=== PATIENT | female | born 1980 | race African-American/Black ===

== ENCOUNTER 2019-04-20 12:37 | Outpatient (CLI) | payer OTHER, MEDICAID, SELFPAY ==
--- NOTE | 2019-04-21 17:09 | WPDPFTINT ---
PFT Interpretation PFT Interpretation: DOS: 04/20/2019 REQUESTING: Shiraz Caro NP REASON FOR TESTING: Shortness of breath PULMONARY FUNCTION TESTS Spirometry: FEV1 84%, normal. FVC normal. FEV1% is normal. Mild decrease in PXJ45-76%, 62% predicted, increased by 19% after bronchodilator. Lung volumes: Total lung capacity 103%, normal. RV/TLC ratio is increased consistent with air trapping. Normal airway resistance. Diffusion: DLCO 55%, moderately decreased. Flow volume loop: Normal. IMPRESSION: Mild air trapping, small airways pattern with fair response to bronchodilator; moderate diffusion impairment. The diffusion impairment is the most significant finding. Clinical correlation is recommended. Fe Ochoa MD
== END 2019-04-20 12:38 | disposition home or self-care (01) ==
PROVIDERS: Visit Provider Nurse Practitioner Family
DX: R06.00 Dyspnea, unspecified (principal); R94.2 Abnormal results of pulmonary function studies
CPT/HCPCS: 94060; 94726; 94729

== ENCOUNTER 2019-07-04 08:50 | Outpatient (CLI) | payer OTHER, SELFPAY ==
--- NOTE | ~2019-07-04 | CT_ITS ---
EXAMINATION:CT chest high resolution [facility] DATE: 07/04/2019 09:40 INDICATION: Abnormal chest radiographs. Cough. TECHNIQUE: Computed tomography (CT) of the chest was performed without intravenous contrast. Automate d exposure control and iterative reconstruction technique were employed. The dose-length product (DLP ) was 422.23 mGy-cm. COMPARISON: Chest CT 03/17/2019, chest single view 03/13/2019 FINDINGS: The lung volumes are normal. There are patchy groundglass opacities throughout the lungs bi laterally. There is a widespread distribution of septal thickening in the lungs, but this feature is milder than the groundglass opacities. No bronchiectasis or honeycombing. No pleural effusion. The he art size is normal. No pericardial effusion. There are surgical changes of the stomach. There is tao re thoracic spondylosis. IMPRESSION: 1. Diffuse lung disease, unchanged from 03/17/2019. The differential diagnosis includes chronic hypers ensitivity pneumonitis, chronic eosinophilic pneumonia, nonspecific interstitial pneumonitis (NSIP), pulmonary alveolar proteinosis, and smoking-related interstitial lung disease. Reviewed, dictated and finalized at location A. IMPRESSION: 1. Diffuse lung disease, unchanged from 03/17/2019. The differential diagnosis i ncludes chronic hypersensitivity pneumonitis, chronic eosinophilic pneumonia, n onspecific interstitial pneumonitis (NSIP), pulmonary alveolar proteinosis, and smoking-related interstitial lung disease.
== END 2019-07-04 08:51 | disposition home or self-care (01) ==
LOC: ANHIMG 08:54
PROVIDERS: PCP Physician Assistant; Visit Provider Nurse Practitioner Family
DX: R93.89 Abnormal findings on diagnostic imaging of other specified body structures (principal); J84.9 Interstitial pulmonary disease, unspecified
CPT/HCPCS: 71250

== ENCOUNTER 2019-08-14 00:07 | Outpatient (CLI) | payer OTHER, SELFPAY ==
[2019-08-14 15:58] LABS: SARS-CoV-2 RNA PCR Negative
== END 2019-08-14 00:08 | disposition home or self-care (01) ==
LOC: ANHCOVIDDT 00:08
PROVIDERS: Anesthesiology; Visit Provider Surgery
DX: Z01.818 Encounter for other preprocedural examination (principal); Z11.59 Encounter for screening for other viral diseases
CPT/HCPCS: 87635; C9803; U0003

== ENCOUNTER 2019-08-14 08:36 | Outpatient (CLI) | payer OTHER, SELFPAY ==
[2019-08-14 09:31] LABS: Hematocrit 32.5 % (37.0-47.0); Hemoglobin 10.6 g/dL (12.0-15.0)
[2019-08-14 09:45] LABS: Alanine Aminotransferase 30 U/L (4-35); Alkaline Phosphatase 86 U/L (38-126); Amylase 102 U/L (30-110); Aspartate Amino Transferase 40 U/L (14-36); Bilirubin,Total 0.4 mg/dL (0.2-1.3); Blood Urea Nitrogen 9 mg/dL (7-17); Carbon Dioxide 25 mmol/L (22-30); Chloride 106 mmol/L (98-107); Estimated Glomerular Filt Rate > 60; Glucose 94 mg/dL (65-105); Lipase 85 U/L (23-300); Potassium 3.9 mmol/L (3.4-5.0); Sodium 137 mmol/L (137-145)
== END 2019-08-14 08:37 | disposition home or self-care (01) ==
LOC: ANHSURGERY 08:41
PROVIDERS: Anesthesiology; PCP Physician Assistant; Visit Provider Surgery
DX: Z01.818 Encounter for other preprocedural examination (principal); K81.9 Cholecystitis, unspecified
CPT/HCPCS: 36415; 80053; 82150; 82248; 83690; 85014; 85018

== ENCOUNTER 2019-08-16 00:59 | Day surgery (SDC) | payer OTHER, SELFPAY ==
[2019-08-02 17:14] VITALS: BMI 37.6
[2019-08-16] VITALS (9 sets, daily range): BP systolic 113–147; BP diastolic 54–84; PULSE 53–75; RESP 17–20; TEMP 36.2–36.4; O2SAT 100
--- NOTE | 2019-08-16 10:50 | PM.HPGS ---
History of Present Illness History of Present Illness Consent: Risks, benefits, and alternatives of a laparoscopic cholecystectomy, possible intraoperative cholangiogram, possible open cholecystectomy have been discussed and questions answered. Patient agrees to proceed with procedure. Chief complaint: Chronic Cholecystitis with Cholelithiasis Narrative: Marcia Brody is a 38 year old Black female who presented with RUQ pain. She was admitted to for RUQ pain, nausea, vomiting and shortness of breath. She is on a low fat diet. She does report that some fruits are causing her some acid reflux. She is still having on and off RUQ pain. An ultrasound of the right upper quadrant was performed on 03-14-19 which showed cholelithiasis and positive Ibanez sign without pericholecystic fluid or gallbladder wall thickening. A CT scan of the abdomen and pelvis with contrast performed on 03-13-19 showed a moderate amount of bibasilar groundglass airspace disease, acute versus chronic, and cholelithiasis. She is anemic and is follow with Dr. Richardson for this. Most recent hemoglobin prior to this admission for surgery is 10.5. She is has also see a digital marketing apprentice for the abnormal chest CT scan. She is had a follow up CT on June 19 with a follow up in July 2019. At the time of her follow-up her nebulizer and inhalers were not changed and she was approved to proceed to surgery by the digital marketing apprentice and Pulmonary Service. She reports her shortness or breath and cough have improved significantly since March. She has a history of gastric sleeve surgery and then subsequent conversion to a Sundeep-en-Y gastric bypass [place]. She reports she is losing about 2-5 lbs. Her starting weight was 298 lbs. Review of Systems Constitutional: Constitutional: Reports no additional constitutional complaints, Reports fatigue and Denies malaise Eyes: Eyes: Denies change in vision and Denies loss of vision ENT: Reports Normal hearing present, Denies change in voice, Denies dizziness, Denies hoarseness and Denies sore throat Cardiovascular: Cardiovascular: Denies chest pain, Denies leg edema and Denies dyspnea Respiratory: Respiratory: Reports as per HPI, Denies cough, Denies dyspnea and Denies wheezing Comments: Patient has had pulmonary consultation and has been approved proceed to general anesthesia. She still has a mild cough but this is felt to be chronic. Gastrointestinal: Gastrointestinal: Reports abdominal pain (Periodic in the right upper quadrant), Denies hematochezia, Denies change in bowel habits and Denies heartburn Comments: Obesity, status post Sundeep-en-Y gastric bypass. Losing some weight slowly. Genitourinary: Genitourinary: Denies urinary frequency and Denies urinary incontinence Neurologic: Reports Normal hearing present, Denies confusion, Denies dizziness, Denies loss of vision, Denies memory loss and Denies seizure-like activity Psychiatric: Psychiatric: Denies confusion, Denies depression and Denies memory loss Endocrine: Endocrine: Denies cold intolerance and Reports fatigue Hematologic/Lymphatic: Hematologic/Lymphatic: Denies easy bleeding and Denies easy bruising Allergic/Immunologic: Allergic/Immunologic: Denies wheezing PMFSH Social History Social History Smoking status: Never smoker Alcohol intake: current Drinks per week: 1 Spiritual care concerns: No Agree to blood products: No Meds Home Medications and Allergies Home Medications Medication Instructions Recorded Confirmed Type amlodipine [Norvasc] 5 mg PO QAM #30 tablet 03/17/19 08/16/19 Rx cyanocobalamin (vitamin B-12) 1,000 mcg PO DAILY #30 tablet 03/17/19 08/16/19 Rx albuterol sulfate 90 mcg/actuation 2 inhalation INHALATION Q4-6H PRN 03/24/19 08/02/19 Rx aerosol inhaler #8.5 gm ferrous sulfate 325 mg PO BID 08/02/19 08/16/19 History lisinopril-hydrochlorothiazide 1 tablet PO DAILY 08/02/19 08/16/19 History m
[2019-08-16] MEDS: LACTATED RINGERS 1,000 ML 30 ML IV CONT ×2 (11:08→14:14)
--- NOTE | 2019-08-16 11:15 | P.PNAN_ITS ---
Anes - Initial Pre Proc Eval Procedure: Operation Date: 08/16/19 12:00 Proposed Procedures p Laparoscopic Cholecystectomy, Possible Intra-Operative Cholangiogram, Possible Open - Carl Grewal MD Date/Time: 08/16/19 11:15 Surgeon: Carl Grewal MD Pre Op Diagnosis: Chronic Cholecystitis with Cholelithiasis Patient Data Age: 38 Gender: F Height: 5 ft 5 in Weight: 106.2 kg Last Vital Signs Temp 97.2 F L 08/16/19 10:52 Pulse 53 L 08/16/19 10:52 Resp 20 08/16/19 10:52 BP 113/54 L 08/16/19 10:52 Pulse Ox 100 08/16/19 10:52 Allergies Allergy/AdvReac Type Severity Reaction Status Date / Time No Known Allergies Allergy Verified 08/16/19 10:43 Home Medications Medication Instructions Recorded Confirmed Type amlodipine [Norvasc] 5 mg PO QAM #30 tablet 03/17/19 08/16/19 Rx cyanocobalamin (vitamin B-12) 1,000 mcg PO DAILY #30 tablet 03/17/19 08/16/19 Rx albuterol sulfate 90 mcg/actuation 2 inhalation INHALATION Q4-6H PRN 03/24/19 08/02/19 Rx aerosol inhaler #8.5 gm ferrous sulfate 325 mg PO BID 08/02/19 08/16/19 History lisinopril-hydrochlorothiazide 1 tablet PO DAILY 08/02/19 08/16/19 History multivitamin with minerals 1 tablet PO DAILY 08/02/19 08/16/19 History [Hair,Skin and Nails] [id number]-FA-vit K 1 tablet PO DAILY 08/02/19 08/16/19 History [Adults Multivitamin] byimqa87-thxz fum-folic ac-om3 1 pkg PO DAILY 08/02/19 08/16/19 History [Daily ] Patient hx anesthesia problems: none Family hx anesthesia problems: none PMFSH Social History Social History Smoking status: Never smoker Alcohol intake: current Drinks per week: 1 Spiritual care concerns: No Agree to blood products: No Anes - Eval Final PreProcedure Day of Procedure 08/16/19 11:15 Patient weight: morbidly obese Heart: regular rate and rhythm Lungs: clear to auscultation Airway: Mallampati scale class II Neurological: alert and oriented Last oral intake: >/= 8 hours ASA classification: III Emergent: no Anesthetic plan: proceed Anesthesia type and monitoring: general ETT and standard monitoring Informed Consent: The patient's anesthetic plan and its attendant risks and benefits were discussed with the patient/family/POA. Questions were solicited and answers provided to the satisfaction of the patient/family/POA.
[2019-08-16] MEDS: ceFAZolin 2 GM/D5W 50 ML 2 GM/50 ML BAG IVPB (12:34)
[2019-08-16] MEDS: BUPIVACAINE/EPINEPHRINE 0.5% 30 ML VIAL INFILTRATE (13:22)
--- NOTE | 2019-08-16 14:29 | PM.PROC ---
Procedure Note - Detailed Date of procedure: 08/18/19 Pre-op diagnosis: Chronic Cholecystitis with Cholelithiasis Post-op diagnosis: same Procedure performed: Laparoscopic cholecystectomy. Description of procedure: Procedure Details: Patient was seen preoperatively in the holding area and risks, benefits and alternatives confirmed. Patient was taken to the operating room and general anesthesia was induced. A time out was then preformed with the surgery team confirming patient and site of surgery. The abdomen was prepped and draped in the usual sterile fashion. Incision was made just below the umbilicus. Two stay sutures of O- Vicryl were used to elevate the mid-line fascia beneath the umbilicus and a small incision was made under direct vision. The peritoneum was entered. The 12 mm [place]ail cannula was introduced under direct vision. First under low flow and then under high flow the abdomen was insufflated with carbon dioxide never exceeding a pressure of 14. Three 5 mm trocars were then introduced under direct vision. The following trocars were introduced under direct vision: a mm in the epigastrium and two 5 mm trocars along the right costal margin. Careful dissection of the triangle of Calot yielded a good window of safety so cholangiogram was not completed. The gall bladder was grasped and the cystic duct and artery were dissected free and clipped with an 5 mm endo-clip drivers license examiner. Then the cystic duct was clipped with a 5 mm endoclip-drivers license examiner. The cystic duct was then transected. The cystic artery was also transected at this point. The gall bladder was removed using electrocautery and then removed using a large 10 mm grasper via the umbilical incision. Careful palpation of the gallbladder after removal revealed very small stones probably 3 or 4. The trocars were removed visualizing hemostasis and the remaining gas evacuated. The large trocar site at the umbilicus was closed with an 0 vicryl figure of 8 suture. The 2 stay sutures mentioned above on either side of the fascia were also tied together to help approximate this midline fascia. Further local anesthetic was placed into each incision for postop pain control. The skin incisions were closed with a subcuticular of 4-0 Monocryl. Surgical glue then was applied to all the incisions. Patient tolerated the procedure well was taken to the recovery room in good condition. Anesthesia: GETA Surgeon: Carl Grewal MD Char Conveyor Tender Cellar: Josué FARLEY OR 1st assist Estimated blood loss (mL): 15 Drains: No Packing: No Pathology: yes (The gallbladder) Complications: No immediate complications Condition: stable Disposition: PACU Findings: gallbladder was huge. At least 15 cm long and extending at least 5 cm beyond its attachments to the liver on its backside. Careful palpation after removal did reveal a few small stones palpable in the gallbladder.
== END 2019-08-16 16:38 | disposition home or self-care (01) ==
PROVIDERS: PCP Physician Assistant; Visit Provider Surgery
PROC: 0FT44ZZ Resection of Gallbladder, Percutaneous Endoscopic Approach (ICD-10-PCS; CPT 47562; principal; 2019-08-16 12:00)
DX: K80.10 Calculus of gallbladder with chronic cholecystitis without obstruction (principal); I10 Essential (primary) hypertension; E11.9 Type 2 diabetes mellitus without complications; J84.9 Interstitial pulmonary disease, unspecified; E66.01 Morbid (severe) obesity due to excess calories; Z68.38 Body mass index [BMI] 38.0-38.9, adult; Z98.84 Bariatric surgery status
CPT/HCPCS: 47562; 36415; 80053; 82150; 82248; 83690; 85014; 85018; 87635; 88304; A9270; C9803; J0131; J0330; J0690; J1100; J1170; J2250; J2405; J2704; J2710; J3010; J7030; J7120; Q9966; U0003

== ENCOUNTER 2020-01-12 10:03 | Outpatient (CLI) | payer OTHER, SELFPAY ==
--- NOTE | ~2020-01-12 | US_ITS ---
EXAMINATION: US OB <= 14 weeks fetus DATE: 01/12/2020 10:47 INDICATION: First trimester dating TECHNIQUE: Real-time pelvic transabdominal and transvaginal ultrasound was performed. COMPARISON: None. FINDINGS: The uterus measures 10.0 x 4.8 x 5.4 cm. There is an intrauterine gestational sac. There i s a 2.5 x 1.6 x 1.0 cm hypoechoic area adjacent to the gestational sac. A yolk sac is identified. Fet al heart motion is identified measuring 105 beats per minute (bpm) by M-mode Doppler. The crown rump length measures 2.1 cm , which correlates with an estimated gestational age of 8 weeks and 5 da y(s) (+/-) 5 day(s). The ovaries are not visualized however no adnexal abnormality is seen. There is no free fluid in the pelvis. IMPRESSION: 1. Live intrauterine with an estimated gestational age of 8 weeks and 5 day(s) (+/-) 5 day( s) and an estimated delivery date of 08/18/2020. Reviewed, dictated and finalized at location A. AL MAKER IMPRESSION: 1. Live intrauterine with an estimated gestational age of 8 weeks and 5 day(s) (+/-) 5 day(s) and an estimated delivery date of 08/18/2020.
== END 2020-01-12 10:04 | disposition home or self-care (01) ==
PROVIDERS: PCP Physician Assistant; Referring Provider Obstetrics & Gynecology; Visit Provider Nurse Practitioner
DX: Z36.87 Encounter for antenatal screening for uncertain dates (principal); Z3A.08 8 weeks gestation of pregnancy
CPT/HCPCS: 76801

== ENCOUNTER 2020-01-13 09:16 | Outpatient (CLI) | payer OTHER, SELFPAY ==
[2020-01-13 10:04] LABS: Glucose Fasting 90 mg/dL
[2020-01-13 11:16] LABS: Glucose 1 Hour 202 mg/dL
[2020-01-13 12:12] LABS: Glucose 2 Hour 79 mg/dL
== END 2020-01-13 09:17 | disposition home or self-care (01) ==
PROVIDERS: PCP Physician Assistant; Visit Provider Nurse Practitioner
DX: E11.9 Type 2 diabetes mellitus without complications (principal)
CPT/HCPCS: 36415; 82951; 84144

== ENCOUNTER 2020-02-06 19:04 | Inpatient (IN) | payer OTHER, SELFPAY ==
--- OUTSIDE RECORDS SUMMARY | 2020-02-06 19:40 | XMS_ITS ---
:1980 Author Care Team Providers Name Role Phone ALETHA DAWSON MD Sap Bw Architect [phone] MIKALA LAL Primary Care Provider [phone] Allergies Code Code System Name Reaction Severity Status Onset NKDA ? Medications Name Status Start Date Stop Date ? ? acyclovir 800 mg tablet Completed ? 07/15/19 17 Take 1 tablet every day by oral route. amlodipine Completed ? 01/09/2020 amlodipine 5 mg tablet Completed ? 0 aspirin 81 mg tablet,delayed release Active ? Not available TAKE 1 TABLET BY MOUTH TWICE A DAY azithromycin 250 mg tablet Completed ? 12/03 B12 Active 1,000 mcg chewable tablet Completed ? 01/09/2020 Take one tablet by mouth once daily benzonatate 200 mg capsule Completed ? 12/03 bupropion HCl SR 150 mg tablet,12 hr sustained-release Completed ? 03/23/2019 Take 1 tablet twice a day by oral route. Calcium 600 with Vitamin D3 600 mg (1,500 mg)-400 unit capsule A ctive ? Not available Take 1 capsule twice a day by oral route. calcium carbonate-vitamin D3 600 mg (1,500 mg)-800 unit tablet C ompleted ? 08/02/2018 Take 1 tablet twice a day by oral route. Calcium with Vitamin D 600 mg (1,500 mg)-400 unit tablet Complet ed ? 01/09/2020 Take 1 tablet twice a day by oral route. Caltrate 600 plus D 600 mg (1,500 mg)-800 unit chewable tablet Completed ? 07/14/2016 Take 1 tablet twice a day by oral route. cefdinir 300 mg capsule Completed ? 12/04/19 20 cetirizine 10 mg tablet Active ? Not avai labl
--- OUTSIDE RECORDS SUMMARY | 2020-02-06 19:41 | XMS_ITS | Encounter Summary ---
:1980 Author Care Team Providers Name Role Phone Latosha LAL Primary Care Provider [phone] Zhen Paiz MD Head Of Ethics And Compliance [phone] Reason for Visit Phone Visit patient would like a Nebulizor for home Assessment and Plan Assessment Note PATRIZIA Martinez, PA-S 1. Interstitial lung disease Ground glass opacities noted o n CT scan in ED Mar 2019. PFT with FEV1 91%, diffusing capacity 55%. She saw a thorac ic surgeon on 07/13/2019 and was Dx with possible hypersensitivity pneumonitis (? mold). They would like to get a lung biopsy for a definitive Dx but due to COVID zoya t has been placed on hold. She has appt with IR in March. Continue following up [facility] specialists for further workup and management. 2. Chronic cough Chronic cough for years, work up still ongoing. Supervisor Dyer prescribed singular, nasal saline, and astelin. She has not been using these medications but has been using albuterol inhaler (per ED) mu ltiple times per day with little relief. Advised that nebulizer unlikely to be he lpful as no diagnosis of obstructive airway disease. Advised to continue with nasal sprays, Singular and Zyrtec daily. Further eval and management per pulm recs. ? montelukast 10 mg tablet ? Zyrtec 10 mg tablet 3. Candidiasis of vagina Pt requests Diflucan for clare diasis. She states Dr. Paiz just prescribed her 1 pill but she usually ne eds two to clear infection. ? Diflucan 100 mg tablet ? vaginal yeast infection: c are instructions Discussion Note: None recorded. Plan of Care R
--- OUTSIDE RECORDS SUMMARY | 2020-02-06 19:41 | XMS_ITS | Encounter Summary ---
:1980 Author Care Team Providers Name Role Phone Latosha LAL Primary Care Provider [phone] Zhen Paiz MD Oxidation Operator [phone] Reason for Visit ob routine visit ACOG Assessment and Plan Assessment Note PATRIZIA Conner PA-S 1. Routine care 39 y/o F with PMH of o besity, DM, HTN, ILD, iron-deficiency anemia, sickle-cell trait, history of bariatric surgery, miscarriage, +GBS, + Grant antibody presents at 10w3d for ACOG. Test results reviewed. OB educational packet reviewed and provided to pt. US 01/12/2020 with [facility] ? OB education, second visit 2. Advanced maternal age Referral to MFM placed, appt u pcoming. Pt getting NIPT drawn next week. 3. Grant antibodies present Not a cause of HDN, [facility] referr al for input. 4. Administration of influenza v accine ? Fluzone Quad [id number] (PF ) 60 mcg (15 mcg x 4)/0.5 mL IM syringe Discussion Note: None recorded. Plan of Care Reminders Provider Appointments Ob 15 03/05/2020 Zhen chinchilla, 11:30AM ? Any 15 on or around Latosha Herrera 04/20/2020 [facility] None ? ? recorded. Referral None ? ? recorded. Procedures None ? ?
--- OUTSIDE RECORDS SUMMARY | 2020-02-06 19:41 | XMS_ITS | Encounter Summary ---
:1980 Author Care Team Providers Name Role Phone Latosha LAL Primary Care Provider [phone] Zhen Paiz MD Lan Engineer [phone] Reason for Visit ob initial exam Had Depo eliana on Dec 13 here at our offi ce Assessment and Plan 1. Routine care ? culture, urine - Please fa x results to [phone]. ? HCG, intact + beta subunit , quant, serum or plasma - Please fax results to [facility] [phone] ? progesterone, serum - Plea se fax [facility] [phone] ? rubella IgG Ab, quant immu noassay, serum or plasma - Please fax results to [facility] [phone] ? pap, IG + HPV, cervical - Please also use Code Z11.51 for HPV screening off of the pap ? Vitamin tablet ? type + screen, serum - Ple ase fax results to [facility] [phone] ? unlisted lab - toxassure s elect 13 (mw) ? US, obstetric, 1st trimest er - Z34.9, Z36, Z34 ? TSH, 2nd Generation, QN, s braden or plasma - [id number] PLEASE FAX RESULTS TO [facility] AT [phone] ? Calcium 600 with Vitamin D 3 600 mg (1,500 mg)-400 unit capsule ? varicella zoster virus IgG Ab, QN, IA, serum - PLEASE FAX RESULTS TO [facility] AT [phone] ? CBC - PLEASE FAX RESULTS T O [facility] [phone] ? HbA1c (hemoglobin A1c), bl ood - PLEASE FAX RESULTS TO [facility] AT [phone]
--- OUTSIDE RECORDS SUMMARY | 2020-02-06 19:41 | XMS_ITS | Encounter Summary ---
:1980 Author Care Team Providers Name Role Phone Latosha LAL Primary Care Provider [phone] Zhen Paiz MD Dope Weigh Operator [phone] Reason for Visit ob routine visit patient has had some spotting today Assessment and Plan 1. Routine care ? urinalysis, dipstick 2. Advanced maternal age has appointment with Javier HENRY t omorrow (02/07/20) with US for viability ? advanced maternal age: car e instructions 3. Diabetes mellitus Will be addressed with weight loss surgery 4. History of bariatric surgical procedure 5. History of miscarriage 6. Grant antibodies present 7. Abnormal progesterone 8. Sickle cell trait ? sickle cell disease: care instructions Discussion Note: None recorded. Plan of Care Reminders Provider Appointments Ob 15 03/05/2020 Zhen chinchilla, 11:30AM ? Any 15 on or around Latosha Herrera 04/20/2020 [facility] Urinalysis, 02/06/2020 In-Of fice Order Dipstick Referral None ? ? recorded. Procedures None ? ? recorded. Surgeries None ? ? recorded. Imaging None ?
--- OUTSIDE RECORDS SUMMARY | 2020-02-06 19:41 | XMS_ITS | Encounter Summary ---
:1980 Author Care Team Providers Name Role Phone Latosha LAL Primary Care Provider [phone] Zhen Paiz MD Gear Finisher [phone] Reason for Visit Depo Provera Visit Injection Consent Signed, cb-rma Assessment and Plan 1. Depot contraceptive-no proble m ? test, urine ? medroxyprogesterone 150 mg /mL intramuscular suspension Discussion Note: None recorded.Patient educational handouts: No information available. Plan of Care Reminders Provider Appointments Ob 15 03/05/2020 Zhen chinchilla, 11:30AM ? Any 15 on or around Latosha M 04/20/2020 [facility] 12/05/2019 In-Offi ce Order Test, Urine Referral None ? ? recorded. Procedures None ? ? recorded. Surgeries None ? ? recorded. Imaging None ? ? recorded. Medications Name Start Date ? ? aspirin 81 mg tablet,delayed release ? TAKE 1 TABLET BY MOUTH TWICE A DAY Calcium 600 with Vitamin D3 600 mg (1,500 mg)-400 unit capsule ? Take 1 capsule twice a day by oral route. cetirizine 10 mg tablet ? ferrous sulfate 325 mg (65 mg iron) tablet ? folic acid 1 mg tablet ? Take 2 tablets twice a day by oral route as directed.
--- NOTE | 2020-02-06 20:22 | PM.IMHP ---
H&P: HPI History of Present Illness Date/Time: 02/06/20 20:22 Chief complaint: bleeding/abd pain Narrative: Marcia Brody is a 39 year old female 0 now 2 0 female presents with uterine contractions bleeding and passes a 9-10 week fetus. She was seen in the office today with no heart tones noted an ultrasound scheduled for tomorrow. Has had no bleeding or cramping until she presented tonight. Does have a history of prior miscarriage early which did require a D&C. Review of Systems Review of Systems: All systems reviewed & are unremarkable except as noted in HPI and below PMFSH Past Medical History Medical History (Updated 02/06/20 @ 20:28 by Bay Muniz MD) Anemia Chronic cough (~03/08/00) Diabetes HTN (hypertension) Migraines Surgical History Surgical History Hx laparoscopic cholecystectomy Hx of gastric bypass gastric sleeve Social History Social History Smoking status: Never smoker Alcohol intake: current Drinks per week: 1 Spiritual care concerns: No Agree to blood products: No Meds Home Medications and Allergies Home Medications Medication Instructions Recorded Confirmed Type amlodipine [Norvasc] 5 mg PO QAM #30 tablet 03/17/19 11/24/19 Rx cyanocobalamin (vitamin B-12) 1,000 mcg PO DAILY #30 tablet 03/17/19 11/24/19 Rx albuterol sulfate 90 mcg/actuation 2 inhalation INHALATION Q4-6H PRN 03/24/19 11/24/19 Rx aerosol inhaler #8.5 gm Adults Multivitamin 1 tablet PO DAILY 08/02/19 11/24/19 History Daily 1 pkg PO DAILY 08/02/19 11/24/19 History ferrous sulfate 325 mg PO BID 08/02/19 11/24/19 History lisinopril-hydrochlorothiazide 1 tablet PO DAILY 08/02/19 11/24/19 History multivitamin with minerals 1 tablet PO DAILY 08/02/19 11/24/19 History [Hair,Skin and Nails] Allergies Allergy/AdvReac Type Severity Reaction Status Date / Time No Known Allergies Allergy Verified 11/24/19 10:16 Exam Const: General: cooperative and healthy appearing Resp: Effort & Inspection: normal respiratory effort Auscultation: clear to auscultation bilaterally Cardio: Rate: regular rate Rhythm: regular rhythm GI: Inspection: normal to inspection : External Female Exam: normal external appearance Speculum Exam - Vagina: vaginal bleeding Speculum Exam - Cervix: Cervical os closed Bimanual exam- vagina & uterus: normal bimanual exam (Uterus slightly tender and mildly enlarged at 8 weeks) Assessment and Plan Assessment and plan (1) Complete : Code(s): O03.9 - Complete or unspecified spontaneous without complication Status: Acute Additional Plan 1. Patient appears by clinical exam and by passing the tissue to have had a complete miscarriage. 2. We will monitor for the next few hours and if no significant bleeding with discharge home. 3. Patient is scheduled for ultrasound tomorrow which I have advised her to keep to be certain that there are no remaining tissue that would require evacuation. 4. To call Dr. Acosta is office tomorrow for follow-up after ultrasound and any further plan as indicated.
--- NOTE | 2020-02-06 20:29 | WPDHPUPDATE1 ---
History and Physical Update Update Date/Time: 02/06/20 20:29 History and Physical has been reviewed, including an updated exam of the patient. There are NO changes in the patient's condition. Risks, benefits, and alternatives have been discussed and questions answered. Patient agrees to proceed with procedure.
--- NOTE | 2020-02-06 20:50 | PC.NURSE ---
Discussion of disposition with patient and father of baby. Patient would like hospital to handle disposition of remains. Pt advised of Share program. Pt resting quietly at this time.
--- NOTE | 2020-02-06 21:15 | PC.NURSE ---
Weight of gestational sac intact with fetus 23 grams.
[2020-02-06 21:31] VITALS: BP 115/74; PULSE 55
--- NOTE | 2020-02-06 22:01 | PC.NURSE ---
1904pt came to L&D c/o contractions and saying that she was miscarrying. pt taken into room 106 and on examination of patient bleeding was noted. Pt stated that she feels like the baby is coming out. 1914- called Dr. Paiz via cell phone due to patient stating that she seen him in the office today and he was unable to dopple heart tones and pt had an ultrasound set up for tomorrow already. Dr. Paiz informed me to call Dr. Muniz(director communications physician)for plan of care. 1920-Dr. Muniz Paged via answering service. 1924- pt stated that she felt like she need to push. pt bared down and delivered fetus encased in membrane sac. pt wanted to hold baby. bleeding well controlled. pt states that she feels better now. 1932- Dr. Muniz responded to page. coming in. 2007- Dr. Muniz at bedside. cervical exam done- cervix closed. bleeding well controlled. all questions answered by Dr. Muniz. pt to get US and to f/u with Dr. Paiz.
[2020-02-06 22:51] VITALS: BMI 35.6
--- NOTE | 2020-02-06 23:53 | PC.NURSE ---
Addendum entered by Mat Minor RN 02/06/20 23:54: THIS NOTE SHOULD BE TIMED 2039 Original Note: Chelo Beck Share coordinator notified of pt and loss.
--- NOTE | 2020-02-07 00:09 | PC.NURSE ---
2315- pt given discharge instructions. no bleeding noted on exam. SHARE folder and keepsakes given to pt and FOB. all questions answered. pt c/o no pain at time of d/c.
[2020-02-07 06:41] LABS: Rapid Plasma Reagin Non-Reactive (NonReactive)
== END 2020-02-06 23:22 | disposition home or self-care (01) | DRG 564 ==
PROVIDERS: Admitting Provider Obstetrics & Gynecology; PCP Physician Assistant; Visit Provider Obstetrics & Gynecology
DX: O03.9 Complete or unspecified spontaneous abortion without complication (principal)
CPT/HCPCS: 36415; 86592; 86850; 86880; 86900; 86901; 86902; 88305

== ENCOUNTER 2021-04-03 13:01 | Outpatient (CLI) | payer OTHER, SELFPAY ==
--- NOTE | ~2021-04-03 | US_ITS ---
EXAMINATION: US pelvic complete w TV DATE: 04/03/2021 14:16 INDICATION: Abnormal uterine bleeding Comparison:Ultrasound dated 01/12/2020 TECHNIQUE: Multiple transabdominal and endovaginal sonographic images of the pelvis performed. FINDINGS: The uterus measures 6.4 x 3.7 x 4.5 cm. The endometrial complex measures 9 mm. The right ovary measures 2.6 x 2 x 1.4 cm and the left ovary measures 3.1 x 1.6 x 1.8 cm. There are small follicles in each ovary. Normal doppler signal in both ovaries. There is no free fluid in the pelvis. There are no abnormal masses seen on either side. IMPRESSION: 1. Unremarkable pelvic ultrasound. Reviewed, dictated and finalized at location B. ER APPRENTICE
== END 2021-04-03 13:02 | disposition home or self-care (01) ==
LOC: ANHIMG 13:02
PROVIDERS: PCP Physician Assistant; Visit Provider Nurse Practitioner
DX: N93.8 Other specified abnormal uterine and vaginal bleeding (principal)
CPT/HCPCS: 76830; 76856

== ENCOUNTER 2021-11-28 13:21 | Emergency (ER) | payer OTHER, SELFPAY ==
--- NOTE | ~2021-11-28 | US_ITS ---
EXAMINATION: US pelvic complete w TV DATE: 11/28/2021 15:21 INDICATION: Vaginal bleeding for 3 weeks. Comparison:04/03/2021 TECHNIQUE: Multiple transabdominal and endovaginal sonographic images of the pelvis performed. FINDINGS: The uterus measures 7.5 x 4.1 x 3.9 cm. There is a uterine fibroid measuring 1.3 x 1.3 x 0. 9 cm. The endometrial complex measures 3 mm. The ovaries are not visualized. No adnexal masses or fluid collections are seen. There is no free fluid in the pelvis. There are no abnormal masses seen on either side. IMPRESSION: 1. Uterine fibroid abutting the superior margin of the endometrium measures 1.3 cm maximum dimension. Otherwise, unremarkable pelvic ultrasound. Reviewed, dictated and finalized at location A.
[2021-11-28 13:51] VITALS: BP 187/98; PULSE 84; RESP 16; TEMP 36.6; O2SAT 100
[2021-11-28 14:16] LABS: Basophils Percent Auto 0.8 % (0.2-1.2); Eosinophils Absolute Auto 0.3 K/mm3 (0-0.3); Hemoglobin 12.2 g/dL (12.0-15.0); Immature Granulocyte Absolute 0.01 K/mm3 (0.00-0.031); Immature Granulocyte Percent A 0.2 % (0-0.5); Lymphocytes Absolute Auto 1.64 K/mm3 (0.9-3.2); Lymphocytes Percent Auto 31.2 % (18.3-44.2); Mean Corpuscular HGB Conc 32.1 g/dl (32-36); Mean Corpuscular Hemoglobin 28.4 pg (26-34); Mean Corpuscular Volume 88.6 fl (80-100); Monocytes Absolute Auto 0.4 K/mm3 (0.1-0.6); Monocytes Percent Auto 7.6 % (2.6-8.5); Neutrophils Absolute Auto 2.9 K/mm3 (1.3-6.7); Neutrophils Percent Auto 55.2 % (45.5-73.1); Platelet Count Result 279 k/mm3 (150-375); Red Blood Count 4.29 M/mm3 (4.2-5.4); White Blood Count 5.3 K/mm3 (4.5-10.0)
[2021-11-28 14:20] LABS: Appearance Urine Clear (Clear); Bilirubin Urine Negative (Negative); Blood Urine 3+ (Negative); Color Urine Yellow (Yellow); Glucose Urine UA Negative (Negative); Ketones Urine Negative (Negative); Leukocyte Esterase Ur Negative LEU/UL (Negative); Nitrate Urine Negative (Negative); Protein Urine Negative (Negative); Specific Grav Ur 1.015 (1.001-1.035); Urobilinogen Urine 0.2 mg/dL (<2.0)
[2021-11-28 14:26] LABS: Alanine Aminotransferase 30 U/L (6-35); Albumin Level 4.1 g/dL (3.5-5.1); Alkaline Phosphatase 103 U/L (38-126); Anion Gap 8 mmol/L (8-16); Aspartate Amino Transferase 35 U/L (14-36); Bilirubin,Total 0.4 mg/dL (0.2-1.3); Blood Urea Nitrogen 8 mg/dL (7-17); Calcium 8.9 mg/dL (8.4-10.2); Carbon Dioxide 22 mmol/L (22-30); Chloride 107 mmol/L (98-107); Estimated CRCL calculation 72 ml/min; Estimated Glomerular Filt Rate > 60; Glucose 127 mg/dL (65-110); Lipase 60 U/L (23-300); Potassium 4.1 mmol/L (3.4-5.0); Sodium 137 mmol/L (137-145)
[2021-11-28 14:26] LABS: Mucus Urine Rare /lpf; RBC Urine 0-2 /hpf (0-2); Squamous Epithelial Cell Urine Few /hpf (Few); WBC Urine 0-3 /hpf
[2021-11-28 14:28] LABS: Add Urine Microscopic? YES
--- NOTE | 2021-11-28 14:43 | PC.NURSE ---
EDP at bedside to assess pt.
[2021-11-28 14:47] VITALS: O2SAT 100
--- NOTE | 2021-11-28 15:11 | PC.NURSE ---
Patient off unit to US>
--- NOTE | 2021-11-28 15:32 | ED.ABDPAIN ---
HPI - Abdominal Pain General Chief Complaint: Abdominal Pain Stated Complaint: abd pain Time Seen by Provider: 11/28/21 14:38 History of Present Illness HPI narrative: Patient is a 41-year-old female here for evaluation of abdominal vaginal bleeding for the past month. Patient states that she has had abnormal cycles for the past year or so, states that she started her cycle on October 31, and since then she has had intermittent bleeding, some days heavier than others. For the past week she has had heavy vaginal bleeding daily and additionally has some lower abdominal discomfort and low back pain. 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 Denies nausea, vomiting, diarrhea, fevers, chills, dysuria, urgency or frequency. Related Data Home Medications Medication Instructions Recorded Confirmed ferrous sulfate 325 mg (65 mg 325 mg PO BID 08/02/19 11/24/19 iron) tablet lisinopril 20 1 tablet PO DAILY 08/02/19 11/24/19 mg-hydrochlorothiazide 12.5 mg tablet multivit with minerals-iron 18 1 tablet PO DAILY 08/02/19 11/24/19 mg-folic ac 400 mcg-vit K 25 mcg tablet (Adults Multivitamin) multivitamin with minerals 1 tablet PO DAILY 08/02/19 11/24/19 (Hair,Skin and Nails tablet) vits 75-iron 28 mg-folic 1 pkg PO DAILY 08/02/19 11/24/19 acid 800 mcg-omega3 440 mg oral pack (Daily ) Allergies Allergy/AdvReac Type Severity Reaction Status Date / Time No Known Allergies Allergy Verified 11/24/19 10:16 Review of Systems Review of Systems: Gen: Denies fevers or chills Eyes: Denies eye pain or visual change ENT: Denies congestion Respiratory: Denies shortness of breath or cough CV: Denies chest pain or palpitations GI: Denies abdominal pain nausea, emesis or diarrhea : denies burning, urgency, frequency or hematuria Musculoskeletal: Denies back pain or muscle pain Neuro: Denies numbness, tingling, weakness or focal weakness Skin: Denies rash Except as documented, all other systems reviewed and negative [facility] Past Medical History Medical History (Updated 11/28/21 @ 17:36 by Carrie Colvin PA-C) Anemia Chronic cough (~03/08/00) Diabetes HTN (hypertension) Migraines Surgical History Surgical History Hx laparoscopic cholecystectomy Hx of gastric bypass gastric sleeve Social History Social History Smoking status: Never smoker Second hand tobacco smoke exposure: No Alcohol intake: current Drinks per week: 1 Substance use: never Gender identity (if verbalized by the patient): Female Sexual Orientation (if Verbalized by the Patient): Straight or Heterosexual Spiritual care concerns: No Agree to blood products: No Exam Narrative: APPEARANCE: No acute distress, nontoxic, resting in bed EYES: EOMI HEENT: Normocephalic, atraumatic, OMM RESPIRATORY: No respiratory distress Clear to auscultation bilaterally with no rhonchi wheezing or rales. CARDIOVASCULAR: Regular rate and rhythm without murmurs rubs or gallops. ABDOMINAL: Soft, nontender, nondistended, no rebound or guarding : exam performed with biopharmaceutical rep katie; scant amount of blood noted in vault, cervical os is closed, no lesions MUSCULOSKELETAL: Moves all extremities. No clubbing, cyanosis or edema. NEURO: Awake and alert. Following commands, speech normal, no focal deficits SKIN:: Warm, dry. No rashes lesions or abrasions PSYCHIATRIC: Normal affect/mood Course Consultations Consultation #1: Spoke with Dr. Muniz, [employer] senior applications architect for Dr. Vega, recommends patient call office to set up follow up for fibroid Date: 11/28/21 Time: 17:41 Vital Signs Vital signs: Vital Signs Temperature 97.8 F 11/28/21 13:51 Pulse Rate 84 11/28/21 13:51 Respiratory Rate 16 11/28/21 13:51 Blood Pressure 187/98 H 11/28/21 13:51 Pulse Oximetry 100 11/28/21
[2021-11-28] MEDS: ACETAMINOPHEN 325 MG TABLET 650 MG PO (16:33)
[2021-11-28 16:36] VITALS: BP 190/112
[2021-11-28 16:46] VITALS: BP 197/116
[2021-11-28 17:08] LABS: Pregnancy On Board Control Positive; Urine Pregnancy Test Negative
== END 2021-11-28 17:52 | disposition home or self-care (01) ==
PROVIDERS: Physician Assistant; Emergency Provider Emergency Medicine; PCP Physician Assistant
DX: D25.9 Leiomyoma of uterus, unspecified (principal); E11.9 Type 2 diabetes mellitus without complications; I10 Essential (primary) hypertension; Z86.2 Personal history of diseases of the blood and blood-forming organs and certain disorders involving the immune mechanism; Z98.84 Bariatric surgery status
CPT/HCPCS: 36415; 76830; 76856; 80053; 81001; 81025; 83690; 85025; 99284; A9270

== ENCOUNTER 2022-03-04 08:59 | Outpatient (CLI) | payer OTHER, SELFPAY ==
[2022-03-04 09:46] LABS: Hematocrit 34.2 % (37.0-47.0); Hemoglobin 11.5 g/dL (12.0-15.0)
[2022-03-04 10:01] LABS: Anion Gap 5 mmol/L (8-16); Blood Urea Nitrogen 7 mg/dL (7-17); Calcium 9.1 mg/dL (8.4-10.2); Carbon Dioxide 28 mmol/L (22-30); Chloride 103 mmol/L (98-107); Estimated Glomerular Filt Rate > 60; Glucose 90 mg/dL (65-110); Sodium 136 mmol/L (137-145)
== END 2022-03-04 09:00 | disposition home or self-care (01) ==
LOC: ANHLAB 08:59
PROVIDERS: PCP Physician Assistant; Visit Provider Anesthesiology
DX: Z01.818 Encounter for other preprocedural examination (principal); Z79.899 Other long term (current) drug therapy; D50.9 Iron deficiency anemia, unspecified
CPT/HCPCS: 36415; 80048; 85014; 85018

== ENCOUNTER 2022-03-16 00:19 | Day surgery (SDC) | payer OTHER, SELFPAY ==
[2022-03-03 09:55] VITALS: BMI 31.4
--- NOTE | 2022-03-03 10:01 | PC.NURSE ---
Report to the Outpatient Waiting Room, entrance under the green pavilion located off [facility], at time 10:15 on date 03/16/22. Planned Procedure Time: 12:15. Time changes happen often and if your time is changed the preop area will call you the afternoon before. - You and your visitor will be asked to self-screen and do not enter if you have any COVID symptoms. - Only one visitor is requested with a max of two and NO children visitors are allowed at this time. - The patient visitor may be requested to leave or wait in car when not with patient due to distancing restrictions. - A mask is REQUIRED within the hospital. Patients may have clear liquids (water, carbonated beverages, clear teas, apple juice) until 3 hours prior to surgery (9:15) with a maximum of 20 ounces. - No food from midnight until time of surgery Take the following medications with a SIP of water the morning of surgery: AMLODIPINE Medications to discontinue per physician: VITAMINS/SUPPLEMENTS Date to take last dose: 03/12/22 Please no make-up, nail wolof, hairspray, perfume, deodorant, or body powder the day of surgery. No jewelry (including any body piercings) or valuables the day of surgery, leave them at home. Please take a shower or bath the night before, or the morning of, surgery with an antibacterial soap. Wear comfortable, loose fitting clothing. - Jewelry must be removed prior to entering the operating room. Rings and piercings that are not removed may be cut off. - The hospital will not accept responsibility for valuables. - Please leave all valuables, including medications, at home the day of surgery. If you are going home after surgery, a licensed racecar driver must drive you home. - NO public transportation without another adult if you receive anesthesia. - We recommend that an adult stay with you for 24 hours following discharge. - We also recommend that you do not drive, make important decision, drink alcoholic beverages, or take any drugs that were not prescribed by your health care provider for at least 24 hours after your discharge time. Follow any additional instructions given to you from your surgeon. If you or anyone in your household have experienced Covid symptoms in the past week, please notify your surgeon or the nurse liaison at the phone number below for possible testing. Telephone instructions given to PT - CHASITY GOODMAN and asked if any additional questions and then verbalized understanding. Patient advised to call surgeon office or pre surgery nurse liaison [phone] if any additional questions.
[2022-03-16] VITALS (7 sets, daily range): BP systolic 125–148; BP diastolic 66–82; PULSE 52–66; RESP 14–18; TEMP 36.8; O2SAT 100
--- NOTE | 2022-03-16 08:20 | WPDHPUPDATE1 ---
History and Physical Update Update Date/Time: 03/16/22 08:20 History and Physical has been reviewed, including an updated exam of the patient. There are NO changes in the patient's condition. Risks, benefits, and alternatives have been discussed and questions answered. Patient agrees to proceed with procedure.
--- NOTE | 2022-03-16 08:20 | PM.HPGS ---
History of Present Illness History of Present Illness Consent: Risks, benefits, and alternatives have been discussed and questions answered. Patient agrees to proceed with procedure. Chief complaint: menorrhagia, fibroids Narrative: Marcia Brody is a 41 year old female with heavy and prolonged cycles. It was recommended to proceed with D&C hysteroscopy. Pelvic ultrasound does reveal 1 small fibroid. Risks of infection, bleeding, perforation, fluid imbalance, and possible pathology were reviewed. Patient voices understanding and agrees to proceed. Review of Systems Review of Systems: not repeated day of surgery; patient states no changes in status PMFSH Past Medical History Medical History (Updated 03/16/22 @ 08:23 by Junie Vega MD) Anemia Diabetes HTN (hypertension) Migraines Surgical History Surgical History (Updated 03/16/22 @ 08:23 by Junie Vega MD) History of D&C 2000 for spontaneous Hx laparoscopic cholecystectomy Hx of gastric bypass gastric sleeve Social History Social History Smoking status: Never smoker Second hand tobacco smoke exposure: No Alcohol intake: never Drinks per week: 1 Substance use: never Substance use type: does not use Living arrangements: alone Gender identity (if verbalized by the patient): Female Sexual Orientation (if Verbalized by the Patient): Straight or Heterosexual Spiritual care concerns: No Agree to blood products: No Meds Home Medications and Allergies Home Medications Medication Instructions Recorded Confirmed Type amlodipine 5 mg tablet (Norvasc) 5 mg PO QAM #30 tabs 03/17/19 03/03/22 Rx cyanocobalamin (vitamin B-12) 1,000 mcg PO DAILY #30 tabs 03/17/19 03/03/22 Rx 1,000 mcg tablet albuterol sulfate 90 mcg/actuation 2 inhalation inhalation Q4-6H PRN 03/24/19 03/03/22 Rx aerosol inhaler shortness of breath or wheezing #8.5 grams ferrous sulfate 325 mg (65 mg 325 mg PO BID 08/02/19 03/03/22 History iron) tablet lisinopril 20 1 tablet PO DAILY 08/02/19 03/03/22 History mg-hydrochlorothiazide 12.5 mg tablet multivit with minerals-iron 18 1 tablet PO DAILY 08/02/19 03/03/22 History mg-folic ac 400 mcg-vit K 25 mcg tablet (Adults Multivitamin) vits 75-iron 28 mg-folic 1 pkg PO DAILY 08/02/19 03/03/22 History acid 800 mcg-omega3 440 mg oral pack (Daily ) folic acid 1 mg tablet 2 mg PO BID 03/03/22 03/03/22 History Allergies Allergy/AdvReac Type Severity Reaction Status Date / Time No Known Allergies Allergy Verified 03/03/22 09:53 Exam Const: General: healthy appearing and alert Orientation/consciousness: patient oriented x3 Resp: Effort & Inspection: normal respiratory effort GI: GI Palp: Yes Soft to palpation, No Tenderness to palpation present (GI) and No Palpable mass present : External Female Exam: normal external appearance Speculum Exam - Vagina: normal appearance of the vagina and normal vaginal discharge Speculum Exam - Cervix: normal appearance of the cervix Bimanual exam- vagina & uterus: uterine size normal and consistency normal Bimanual Exam- Adnexa, other: normal adnexae and No adnexal tenderness Neuro: General: patient oriented x3 Assessment and Plan Assessment and plan (1) Menorrhagia: Code(s): N92.0 - Excessive and frequent menstruation with regular cycle Status: Acute Assessment and Plan: plan to proceed with D&C hysteroscopy
--- NOTE | 2022-03-16 10:16 | P.PNAN_ITS ---
Anes - Initial Pre Proc Eval Procedure: Operation Date: 03/16/22 12:15 Proposed Procedures p Hysteroscopy Dilation and Curettage - Junie Vega MD Date/Time: 03/16/22 10:16 Surgeon: Junie Vega MD Pre Op Diagnosis: menorrhagia, fibroids Patient Data Age: 41 Gender: F Height: 1.65 m Weight: 85.73 kg Allergies Allergy/AdvReac Type Severity Reaction Status Date / Time No Known Allergies Allergy Verified 03/03/22 09:53 Home Medications Medication Instructions Recorded Confirmed Type amlodipine 5 mg tablet (Norvasc) 5 mg PO QAM #30 tabs 03/17/19 03/03/22 Rx cyanocobalamin (vitamin B-12) 1,000 mcg PO DAILY #30 tabs 03/17/19 03/03/22 Rx 1,000 mcg tablet albuterol sulfate 90 mcg/actuation 2 inhalation inhalation Q4-6H PRN 03/24/19 03/03/22 Rx aerosol inhaler shortness of breath or wheezing #8.5 grams ferrous sulfate 325 mg (65 mg 325 mg PO BID 08/02/19 03/03/22 History iron) tablet lisinopril 20 1 tablet PO DAILY 08/02/19 03/03/22 History mg-hydrochlorothiazide 12.5 mg tablet multivit with minerals-iron 18 1 tablet PO DAILY 08/02/19 03/03/22 History mg-folic ac 400 mcg-vit K 25 mcg tablet (Adults Multivitamin) vits 75-iron 28 mg-folic 1 pkg PO DAILY 08/02/19 03/03/22 History acid 800 mcg-omega3 440 mg oral pack (Daily ) folic acid 1 mg tablet 2 mg PO BID 03/03/22 03/03/22 History Patient hx anesthesia problems: none Family hx anesthesia problems: none Results Review: All pre-operative results and documents have been reviewed as part of the pre- operative evaluation. [facility] Past Medical History Medical History Anemia Diabetes HTN (hypertension) Migraines Surgical History Surgical History History of D&C 2000 for spontaneous Hx laparoscopic cholecystectomy Hx of gastric bypass gastric sleeve Social History Social History Smoking status: Never smoker Second hand tobacco smoke exposure: No Alcohol intake: never Drinks per week: 1 Substance use: never Substance use type: does not use Living arrangements: alone Gender identity (if verbalized by the patient): Female Sexual Orientation (if Verbalized by the Patient): Straight or Heterosexual Spiritual care concerns: No Agree to blood products: No Anes - Eval Final PreProcedure Day of Procedure 03/16/22 10:16 Patient weight: obese Heart: regular rate and rhythm Lungs: clear to auscultation Airway: Mallampati scale class II Neurological: alert and oriented Last oral intake: >/= 8 hours ASA classification: III Emergent: no Anesthetic plan: proceed Anesthesia type and monitoring: general GIVS and standard monitoring Results Review: All pre-operative results and documents have been reviewed as part of the pre- operative evaluation. Informed Consent: The patient's anesthetic plan and its attendant risks and benefits were discussed with the patient/family/POA. Questions were solicited and answers provided to the satisfaction of the patient/family/POA.
[2022-03-16] MEDS: LACTATED RINGERS 1,000 ML 30 ML IV CONT (10:32)
[2022-03-16] MEDS: ACETAMINOPHEN 500 MG TABLET 1000 MG PO (10:33)
[2022-03-16] MEDS: LIDOCAINE HCL 1% PF 30 ML VIAL INFILTRATE (11:03)
--- NOTE | 2022-03-16 11:15 | P.OP_ITS ---
Procedure Note - Detailed Date of Procedure 03/16/22 Pre-op Diagnosis menorrhagia, fibroids Post-op Diagnosis Same Procedure Performed hysteroscopy with MyoSure resection and D&C Surgeon Junie Vega MD Anesthesia MAC and Local Findings the uterus sounds to 8cm; there is an anterior submucosal fibroid; the anterior wall was also thickened consistent with secretory endometrium Description of Procedure The patient is taken to the operating room and placed under anesthesia in the dorsal lithotomy position. She was prepped and draped in the usual sterile fashion. [place] speculum was placed in the vagina and the cervix grasped on the anterior lip with a tenaculum. The cervix is injected in each quadrant with 1% lidocaine. The uterus is sounded to 8cm. The Aveta hysteroscope is placed with the above-stated findings. The intermediate blade is placed through the scope and under direct visualization the thickened endometrium was resected and the myoma was shelled out of the endometrium. The base of the myoma was then resected allowing the myoma to free fluid in the cavity. The remainder of the thickened endometrium anteriorly and to the left is resected. The hysteroscope was removed and the polyp forceps are used to attempt to get the myoma that was free floating and this was not successful. The endometrium was sharply curetted until a good uterine cry was noted in all areas. All instruments are removed. Sponge, needle, and instrument counts are correct per the OR staff. The patient was awakened from anesthesia and taken to recovery in stable condition. Estimated Blood Loss 5 Packing No Pathology Yes ( Endometrial shavings and curettings) Complications No immediate complications Condition Stable Disposition PACU
[2022-03-16] MEDS: fentaNYL CITRATE INJ (*CRX) 100 MCG/2 ML VIAL 25 MCG IV PUSH (11:37)
[2022-03-16] MEDS: ONDANSETRON INJ 4 MG/2 ML VIAL IV PUSH (12:51)
== END 2022-03-16 13:52 | disposition home or self-care (01) ==
PROVIDERS: PCP Physician Assistant; Visit Provider Obstetrics & Gynecology Gynecology
PROC: 0U5B8ZZ Destruction of Endometrium, Via Natural or Artificial Opening Endoscopic (ICD-10-PCS; CPT 58563; principal; 2022-03-16 12:15)
DX: N92.0 Excessive and frequent menstruation with regular cycle (principal); D25.0 Submucous leiomyoma of uterus; D64.9 Anemia, unspecified; E11.9 Type 2 diabetes mellitus without complications; I10 Essential (primary) hypertension; Z98.84 Bariatric surgery status; Z79.51 Long term (current) use of inhaled steroids
CPT/HCPCS: 58561; 88305; A9270; J2250; J2405; J2704; J3010; J7120

== ENCOUNTER 2022-04-01 23:32 | Emergency (ER) | payer OTHER, SELFPAY ==
--- NOTE | ~2022-04-01 | CT_ITS ---
CT Abdomen and Pelvis with contrast. History: Abdominal pain. Spiral CT of the abdomen and pelvis was performed after the administration of intravenous contrast. 1 00 cc of Omnipaque 350 was administered intravenously without complication. Dose reduction technique was used on this scan by utilizing automated exposure control and iterative reconstruction technique. The dose-length product (DLP) was 884.59 mGy-cm. COMPARISON: 03/13/2019 Findings: Scans through the lung bases demonstrate patchy groundglass opacity throughout the visualiz ed lung bases. The liver, spleen, pancreas, adrenals and kidneys are within normal limits. Cholecystectomy clips are present. No evidence of aortic aneurysm. Shotty central mesenteric lymph nodes are seen. There is no evidence of bowel obstruction. Patient is status post prior gastric bypass surgery. There is an apparent 2.5 x 2.0 x 3.0 cm thick-walled collection along the left lateral margin of the gastr ic pouch, suspicious for a contained leak. There is mild inflammatory infiltration of the surrounding epigastric fat.. Images through the pelvis were performed. Urinary bladder unremarkable. No adnexal mass seen. No asci evy is seen. There are erosive changes versus Schmorl's nodes about the L4-L5 disc space with space narrowing and reactive sclerosis. Impression: 2.5 x 2.0 x 3.0 cm thick-walled fluid collection along the lateral margin of the gastric pouch. This is suspicious for contained leak along the staple line related to prior gastric bypass surgery, with apparent discontinuity/dehiscence of the staple line. No pneumoperitoneum. Erosive changes versus Schmorl's nodes of the L4-L5 disc space with reactive sclerosis. Findings coul d reflect degenerative change and Schmorl's nodes, however discitis/osteomyelitis cannot be completel y excluded based on the appearance. Correlate clinically. Consider pre and postcontrast MR to further evaluate, as indicated. Patchy groundglass opacity throughout the visualized lung bases. Correlate for pulmonary edema or aty pical infection. Reviewed, dictated and finalized at [facility]. OVER PRESS OPERATOR Impression: 2.5 x 2.0 x 3.0 cm thick-walled fluid collection along the lateral margin of th e gastric pouch. This is suspicious for contained leak along the staple line re lated to prior gastric bypass surgery, with apparent discontinuity/dehiscence o f the staple line. No pneumoperitoneum. Erosive changes versus Schmorl's nodes of the L4-L5 disc space with reactive sc lerosis. Findings could reflect degenerative change and Schmorl's nodes, howeve r discitis/osteomyelitis cannot be completely excluded based on the appearance. Correlate clinically. Consider pre and postcontrast MR to further evaluate, as indicated. Patchy groundglass opacity throughout the visualized lung bases. Correlate for pulmonary edema or atypical infection.
[2022-04-01 23:38] VITALS: BP 131/77; TEMP 36.4
[2022-04-02 00:02] VITALS: BP 132/75; PULSE 86; RESP 16; O2SAT 100
[2022-04-02 00:22] LABS: Basophils Percent Auto 0.3 % (0.2-1.2); Eosinophils Absolute Auto 0.2 K/mm3 (0-0.3); Eosinophils Percent Auto 1.7 % (0-4.4); Hematocrit 34.7 % (37.0-47.0); Hemoglobin 11.3 g/dL (12.0-15.0); Immature Granulocyte Absolute 0.04 K/mm3 (0.00-0.031); Immature Granulocyte Percent A 0.3 % (0-0.5); Lymphocytes Absolute Auto 1.34 K/mm3 (0.9-3.2); Lymphocytes Percent Auto 11.6 % (18.3-44.2); Mean Corpuscular HGB Conc 32.6 g/dl (32-36); Mean Corpuscular Hemoglobin 28.1 pg (26-34); Mean Corpuscular Volume 86.3 fl (80-100); Mean Platelet Volume 10.5 fl (7.4-10.4); Monocytes Absolute Auto 0.9 K/mm3 (0.1-0.6); Monocytes Percent Auto 7.9 % (2.6-8.5); Neutrophils Percent Auto 78.2 % (45.5-73.1); Platelet Count Result 361 k/mm3 (150-375); Red Blood Count 4.02 M/mm3 (4.2-5.4); Red Cell Distribution Width 12.6 % (11.5-14.5); White Blood Count 11.6 K/mm3 (4.5-10.0)
[2022-04-02 00:26] LABS: Appearance Urine Clear (Clear); Bacteria Urine Trace /hpf; Bilirubin Urine Negative (Negative); Blood Urine Negative (Negative); Color Urine Yellow (Yellow); Glucose Urine UA Negative (Negative); Ketones Urine Negative (Negative); Leukocyte Esterase Ur Negative LEU/UL (Negative); Mucus Urine Rare /lpf; Nitrate Urine Negative (Negative); Protein Urine Negative (Negative); RBC Urine 0-2 /hpf (0-2); Squamous Epithelial Cell Urine Rare /hpf (Few); Urobilinogen Urine 0.2 mg/dL (<2.0); WBC Urine 0-3 /hpf; pH Urine 5.5 (5.0-9.0)
[2022-04-02 00:27] LABS: Add Urine Microscopic? NO
[2022-04-02] MEDS: SODIUM CHLORIDE 0.9% IV 1,000 ML 999 ML IV CONT (00:32)
[2022-04-02 00:36] LABS: Alanine Aminotransferase 20 U/L (6-35); Albumin Level 3.8 g/dL (3.5-5.1); Alkaline Phosphatase 125 U/L (38-126); Anion Gap 5 mmol/L (8-16); Aspartate Amino Transferase 25 U/L (14-36); Bilirubin,Total 0.5 mg/dL (0.2-1.3); Blood Urea Nitrogen 9 mg/dL (7-17); Calcium 8.4 mg/dL (8.4-10.2); Carbon Dioxide 28 mmol/L (22-30); Chloride 100 mmol/L (98-107); Estimated CRCL calculation 78 ml/min; Estimated Glomerular Filt Rate > 60; Glucose 124 mg/dL (65-110); Lipase 38 U/L (23-300); Potassium 3.2 mmol/L (3.4-5.0); Sodium 133 mmol/L (137-145)
[2022-04-02 01:01] VITALS: BP 115/61; PULSE 76; RESP 18
--- NOTE | 2022-04-02 01:14 | ED.GENADULT ---
HPI - General Adult General Chief complaint: Abdominal Pain Stated complaint: abd pain Time Seen by Provider: 04/02/22 00:00 History of Present Illness HPI narrative: 41-year-old female presents with upper abdominal pain and vomiting for the past 2 days. No fever, no respiratory symptoms. Related Data Home Medications Medication Instructions Recorded Confirmed ferrous sulfate 325 mg (65 mg 325 mg PO BID 08/02/19 03/16/22 iron) tablet lisinopril 20 1 tablet PO DAILY 08/02/19 03/16/22 mg-hydrochlorothiazide 12.5 mg tablet multivit with minerals-iron 18 1 tablet PO DAILY 08/02/19 03/16/22 mg-folic ac 400 mcg-vit K 25 mcg tablet (Adults Multivitamin) vits 75-iron 28 mg-folic 1 pkg PO DAILY 08/02/19 03/16/22 acid 800 mcg-omega3 440 mg oral pack (Daily ) folic acid 1 mg tablet 2 mg PO BID 03/03/22 03/16/22 Allergies Allergy/AdvReac Type Severity Reaction Status Date / Time No Known Allergies Allergy Verified 04/01/22 23:38 Review of Systems Review of Systems: CONSTITUTIONAL: Denies fever, chills, or sweats. EYES: Denies visual changes, redness, or discharge. ENT: Denies rhinorrhea, congestion, sore throat, or otalgia. CARDIOVASCULAR: Denies chest pain, palpitations, or edema. RESPIRATORY: Denies cough or dyspnea. GASTROINTESTINAL: Denies abdominal pain, nausea, vomiting, or diarrhea. GENITOURINARY: Denies dysuria or hematuria. SKIN: Denies rash or itching. MUSCULOSKELETAL: Denies back pain, joint pain, or myalgia. NEUROLOGIC: Denies headache, numbness, or weakness. PSYCHIATRIC: Denies anxiety or depression. [facility] Past Medical History Medical History Anemia Diabetes HTN (hypertension) Migraines Surgical History Surgical History History of D&C 2000 for spontaneous Hx laparoscopic cholecystectomy Hx of gastric bypass gastric sleeve Social History Social History Smoking status: Never smoker Second hand tobacco smoke exposure: No Alcohol intake: never Drinks per week: 1 Substance use: never Substance use type: does not use Living arrangements: alone Gender identity (if verbalized by the patient): Female Sexual Orientation (if Verbalized by the Patient): Straight or Heterosexual Spiritual care concerns: No Agree to blood products: No Exam Narrative: GENERAL: Well-appearing, well-nourished, and in no acute distress. HEAD: Normocephalic, atraumatic. EYES: PERRLA and EOMI. ENT: Nares clear, no rhinorrhea or epistaxis. Mucous membranes moist. NECK: Supple. CHEST: Clear to auscultation. No respiratory distress. HEART: Regular rate and rhythm. No murmur heard. Normal peripheral pulses. ABDOMEN: Soft, epigastric tenderness, nondistended, normal active bowel sounds. EXTREMITIES: Normal range of motion. No edema. SKIN: Warm, dry, no rash. NEURO: No focal deficits. Alert and oriented x3. PSYCH: Normal mood and affect. Course Vital Signs Vital signs: Vital Signs Temperature 97.6 F 04/01/22 23:38 Blood Pressure 131/77 04/01/22 23:38 Temperature 97.6 F 04/01/22 23:38 Pulse Rate 86 04/02/22 00:02 Respiratory Rate 16 04/02/22 00:02 Blood Pressure 132/75 04/02/22 00:02 Pulse Oximetry 100 04/02/22 00:02 Medical Decision Making [facility] Narrative Medical decision making narrative: Sundeep-en-Y gastric bypass anatomy with probable dehiscence along gastric pouch staple line and intramural 3.3 cm fluid and staple line on contiguity. No bowel perforation. No pneumoperitoneum or peritoneal ascites. Probable gastritis. Extensive bibasilar pulmonary groundglass opacity and scattered consolidations. This is grossly worsened from prior. Consider chronic interstitial lung disease versus other etiologies. I discussed the case with Dr. Kimbrough our surg
[2022-04-02 01:43] LABS: Pregnancy On Board Control Positive; Urine Pregnancy Test Negative
[2022-04-02 03:37] VITALS: BP 136/84; PULSE 78; RESP 16
== END 2022-04-02 05:17 | disposition short-term general hospital (02) ==
PROVIDERS: Emergency Provider Emergency Medicine; PCP Physician Assistant
DX: R18.8 Other ascites (principal); R10.9 Unspecified abdominal pain; J98.4 Other disorders of lung; D64.9 Anemia, unspecified; E11.9 Type 2 diabetes mellitus without complications; I10 Essential (primary) hypertension
CPT/HCPCS: 36415; 74177; 80053; 81003; 81025; 83690; 85025; 96360; 99285; J7030; Q9967

== ENCOUNTER 2022-05-01 14:28 | Outpatient (CLI) | payer OTHER, SELFPAY ==
[2022-05-06 03:55] LABS: Progesterone 6.1 ng/mL (***)
== END 2022-05-01 14:29 | disposition home or self-care (01) ==
LOC: ANHLAB 14:30
PROVIDERS: PCP Physician Assistant; Visit Provider Obstetrics & Gynecology Gynecology
DX: Z31.49 Encounter for other procreative investigation and testing (principal)
CPT/HCPCS: 36415; 84144

== ENCOUNTER 2022-10-01 09:17 | Outpatient (RCR) | payer OTHER, SELFPAY | END 2022-12-30 23:59 | disposition home or self-care (01) | LOC: ANHLAB 09:17 | PROVIDERS: Visit Provider Obstetrics & Gynecology Gynecology | DX: O26.21 Pregnancy care for patient with recurrent pregnancy loss, first trimester (principal); Z3A.00 Weeks of gestation of pregnancy not specified | CPT/HCPCS: 36415; 84144; 84702 ==

== ENCOUNTER 2022-10-01 09:23 | Outpatient (CLI) | payer OTHER, SELFPAY ==
[2022-10-05 17:14] LABS: Progesterone 18.9 ng/mL (***)
== END 2022-10-01 09:24 | disposition home or self-care (01) ==
PROVIDERS: Visit Provider Obstetrics & Gynecology Gynecology
DX: O26.21 Pregnancy care for patient with recurrent pregnancy loss, first trimester (principal); Z3A.00 Weeks of gestation of pregnancy not specified
CPT/HCPCS: 36415; 84144

== ENCOUNTER 2022-10-03 10:49 | Outpatient (CLI) | payer OTHER, SELFPAY | END 2022-10-03 10:50 | disposition home or self-care (01) | LOC: ANHLAB 10:50 | PROVIDERS: Visit Provider Obstetrics & Gynecology Gynecology | DX: O26.21 Pregnancy care for patient with recurrent pregnancy loss, first trimester (principal) | CPT/HCPCS: 36415; 84702 ==

== ENCOUNTER 2022-10-13 16:05 | Outpatient (CLI) | payer OTHER, SELFPAY ==
--- NOTE | ~2022-10-13 | US_ITS ---
EXAMINATION: US OB <=14 wk fetus w TV INDICATION: PREG AND HX OF SAB TECHNIQUE: Sonography of the pelvis was performed by transabdominal and transvaginal techniques. COMPARISON: None. RESULT: Uterus: 9.0 x 5.1 x 6.5 cm. Anteverted. Homogenous myometrium. Cervical length 4.9 cm. Intrauterine gestational sac: Single present. Mean Sac Diameter: 2.24 cm, corresponding gestational age 7 week 1 days. Yolk sac: cm 4.9 mm. Embryo: Single present. Schulter rump length: 0.50 cm, corresponding gestational age 6 weeks, 1 days. Gestational heart rate: absent . Subgestational hematoma: Absent . Right ovary: 3.3 x 2.1 x 3.8 cm. Vascular flow is present. Complex area with significant periphera l flow, likely corpus luteal cyst. Left ovary: 2.4 x 1.0 x 1.9 cm. Vascular flow is present. No adnexal mass. Pelvis free fluid: None. IMPRESSION: Single, intrauterine gestation. No heartbeat detected. Findings are suspicious for, but not marty gnostic of failure. Consider follow-up ultrasound in 7-10 days to assess viability. Estimated Gestational Age: 6 weeks, 1 days by crown rump length. FELECIA by ultrasound 06/07/2023. Reviewed, dictated and finalized at location K. IMPRESSION: Single, intrauterine gestation. No heartbeat detected. Findings are suspi cious for, but not diagnostic of failure. Consider follow-up ultrasou nd in 7-10 days to assess viability. Estimated Gestational Age: 6 weeks, 1 days by crown rump length. FELECIA by ultras ound 06/07/2023.
== END 2022-10-13 16:06 | disposition home or self-care (01) ==
LOC: ANHIMG 16:07
PROVIDERS: PCP Physician Assistant; Visit Provider Obstetrics & Gynecology Gynecology
DX: O26.21 Pregnancy care for patient with recurrent pregnancy loss, first trimester (principal); Z3A.01 Less than 8 weeks gestation of pregnancy
CPT/HCPCS: 76801; 76817

== ENCOUNTER 2022-10-17 08:26 | Outpatient (RCR) | payer OTHER, SELFPAY | END 2023-01-13 23:59 | disposition home or self-care (01) | LOC: ANHLAB 08:26 | PROVIDERS: PCP Physician Assistant; Visit Provider Obstetrics & Gynecology Gynecology | DX: O26.21 Pregnancy care for patient with recurrent pregnancy loss, first trimester (principal) | CPT/HCPCS: 36415; 84702 ==

== ENCOUNTER 2022-10-21 15:11 | Outpatient (CLI) | payer OTHER, SELFPAY ==
--- NOTE | ~2022-10-21 | US_ITS ---
EXAMINATION: US OB <=14 wk fetus w TV DATE: 10/21/2022 16:03 INDICATION: Inconclusive viability during first trimester TECHNIQUE: Real-time pelvic transabdominal and transvaginal ultrasound was performed. COMPARISON: 10/13/2022 FINDINGS: The uterus measures 9.0 x 5.5 x 6.3 cm. There is an intrauterine gestational sac. A yolk sa c is identified. No cardiac motion is identified. The crown rump length measures 6 mm, wh ich correlates with an estimated gestational age of 6 weeks and 3 day(s) (+/-) 4 day(s). The right ovary measures 4.8 x 2.6 x 2.3 cm. The left ovary measures 2.5 x 1.7 x 1.6 cm. There is nor mal vascular flow in the ovaries. There is no free fluid in the pelvis. IMPRESSION: 1. Intrauterine with an estimated gestational age of 6 weeks and 3 day(s) (+/-) 4 day(s) an d an estimated delivery date of 06/13/2023. Findings remain suspicious for failure given abse nce of heart tones and the discrepancy between expected interval growth and interval between ex aminations. Reviewed, dictated and finalized at location B. IMPRESSION: 1. Intrauterine with an estimated gestational age of 6 weeks and 3 da y(s) (+/-) 4 day(s) and an estimated delivery date of 06/13/2023. Findings remain suspicious for failure given absence of heart tones and the di screpancy between expected interval growth and interval between examinations.
== END 2022-10-21 15:12 | disposition home or self-care (01) ==
PROVIDERS: PCP Physician Assistant; Visit Provider Advanced Practice Midwife
DX: O36.80X0 Pregnancy with inconclusive fetal viability, not applicable or unspecified (principal); Z3A.01 Less than 8 weeks gestation of pregnancy
CPT/HCPCS: 76801; 76817

== ENCOUNTER 2022-10-26 00:26 | Day surgery (SDC) | payer OTHER, SELFPAY ==
[2022-10-23 15:32] VITALS: BMI 30.8
--- NOTE | 2022-10-23 15:45 | PC.NURSE ---
Report to the Outpatient Waiting Room, entrance under the green pavilion located off [facility], at time _12:15PM on date __10/26/22 . Planned Procedure Time: __2:15PM . Time changes happen often and if your time is changed the preop area will call you the afternoon before. - You and your visitor will be asked to self-screen and do not enter if you have any COVID symptoms. - A mask is optional within the hospital at this time. Patients may have clear liquids (water, carbonated beverages, clear teas, apple juice) until 3 hours prior to surgery with a maximum of 20 ounces. - No food from midnight until time of surgery Take the following medications with a SIP of water the morning of surgery: ___LABETALOL, ALBUTEROL INHALER NEEDED DO NOT STOP ANY OF YOUR OTHER PRESCRIPTION MEDICATIONS PRIOR TO SURGERY ?EXCEPT THE FOLLOWING Medications to discontinue per physician ___HOLD ALL VITAMINS/SUPPLEMENTS STARTING NOW-10/23/22 Please no make-up, nail kiswahili, hairspray, perfume, deodorant, or body powder the day of surgery. No jewelry (including any body piercings) or valuables the day of surgery, leave them at home. Please take a shower or bath the night before, or the morning of, surgery with an antibacterial soap. Wear comfortable, loose fitting clothing. - Jewelry must be removed prior to entering the operating room. Rings and piercings that are not removed may be cut off. - The hospital will not accept responsibility for valuables. - Please leave all valuables, including medications, at home the day of surgery. If you are going home after surgery, a licensed cat driver must drive you home. - NO public transportation without another adult if you receive anesthesia. - We recommend that an adult stay with you for 24 hours following discharge. - We also recommend that you do not drive, make important decision, drink alcoholic beverages, or take any drugs that were not prescribed by your health care provider for at least 24 hours after your discharge time. Follow any additional instructions given to you from your surgeon. If you or anyone in your household have experienced Covid symptoms in the past week, please notify your surgeon or the nurse liaison at the phone number below for possible testing. Telephone instructions given to ___PATIENT and asked if any additional questions and then verbalized understanding. Patient advised to call surgeon office or pre surgery nurse liaison [phone] if any additional questions.
--- NOTE | 2022-10-26 10:11 | WPDHPUPDATE1 ---
History and Physical Update Update Date/Time: 10/26/22 10:11 History and Physical has been reviewed, including an updated exam of the patient. There are NO changes in the patient's condition. Risks, benefits, and alternatives have been discussed and questions answered. Patient agrees to proceed with procedure.
--- NOTE | 2022-10-26 10:11 | PM.HPGS ---
History of Present Illness History of Present Illness Consent: Risks, benefits, and alternatives have been discussed and questions answered. Patient agrees to proceed with procedure. Chief complaint: missed Ab Narrative: Marcia Brody is a 42 year old female with missed . Patient ultrasound shows a 6 week 1 day infant with no heart tones repeat ultrasound 1 week later shows same. Corresponding beta HCG is 41,770 micro IU per mL. Options for managing missed were discussed with the patient. She chose to proceed with D&C. Risks of infection, bleeding, and perforation were reviewed. Patient voices understanding and agrees to proceed. Review of Systems Review of Systems: not repeated day of surgery; patient states no changes in status PMFSH Past Medical History Medical History (Updated 10/26/22 @ 10:20 by Junie Vega MD) Anemia Diabetes HTN (hypertension) Migraines Surgical History Surgical History (Updated 10/26/22 @ 10:18 by Junie Vega MD) History of D&C 2000 for spontaneous Hx laparoscopic cholecystectomy Hx of gastric bypass gastric sleeve initially performed December of 2018; in 2021 she had her small intestines partially removed with the reanastomosis; revision to a Sundeep-en-Y in 2022 performed in [place] Social History Social History Smoking status: Never smoker Second hand tobacco smoke exposure: No Alcohol intake: never Drinks per week: 1 Substance use: never Substance use type: does not use Living arrangements: alone Gender identity (if verbalized by the patient): Female Sexual Orientation (if Verbalized by the Patient): Straight or Heterosexual Spiritual care concerns: No Agree to blood products: No Meds Home Medications and Allergies Home Medications Medication Instructions Recorded Confirmed Type cyanocobalamin (vitamin B-12) 1,000 mcg PO DAILY #30 tabs 03/17/19 10/23/22 Rx 1,000 mcg tablet albuterol sulfate 90 mcg/actuation 2 inhalation inhalation Q4-6H PRN 03/24/19 10/23/22 Rx aerosol inhaler shortness of breath or wheezing #8.5 grams vits 75-iron 28 mg-folic 1 pkg PO DAILY 08/02/19 10/23/22 History acid 800 mcg-omega3 440 mg oral pack (Daily ) labetalol 100 mg tablet 100 mg PO BID 10/23/22 10/23/22 History omeprazole 20 mg capsule,delayed 20 mg PO DAILY 10/23/22 10/23/22 History release progesterone micronized 100 mg 100 mg PO HS 10/23/22 10/23/22 History capsule Allergies Allergy/AdvReac Type Severity Reaction Status Date / Time No Known Allergies Allergy Verified 10/23/22 15:15 Exam Const: General: healthy appearing and alert Orientation/consciousness: patient oriented x3 Resp: Effort & Inspection: normal respiratory effort Auscultation: clear to auscultation bilaterally Cardio: Rate: regular rate Rhythm: regular rhythm GI: GI Palp: Yes Soft to palpation, No Tenderness to palpation present (GI) and No Palpable mass present : General: Yes deferred (To OR) Neuro: General: patient oriented x3 Assessment and Plan Assessment and plan (1) Missed : Code(s): O02.1 - Missed Status: Acute Assessment and Plan: Plan to proceed with suction D&C (2) History of recurrent , currently : Code(s): 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
[2022-10-26 12:42] VITALS: BP 136/92; PULSE 82; RESP 16; TEMP 36.2; O2SAT 100
[2022-10-26] MEDS: ACETAMINOPHEN 500 MG TABLET 1000 MG PO (13:00)
[2022-10-26] MEDS: LACTATED RINGERS 1,000 ML 30 ML IV CONT (13:00)
--- NOTE | 2022-10-26 13:28 | WPDANESEPPF ---
Anes - Initial Pre Proc Eval Procedure: Operation Date: 10/26/22 14:15 Proposed Procedures p Suction Dilation and Curettage - Junie Vega MD Date/Time: 10/26/22 13:28 Surgeon: Junie Vega MD Pre Op Diagnosis: missed Ab Patient Data Age: 42 Gender: F Height: 1.65 m Weight: 84 kg Last Vital Signs Temp 36.2 C L 10/26/22 12:42 Pulse 82 10/26/22 12:42 Resp 16 10/26/22 12:42 BP 136/92 H 10/26/22 12:42 Pulse Ox 100 10/26/22 12:42 O2 Del Method Room Air 10/26/22 12:42 Allergies Allergy/AdvReac Type Severity Reaction Status Date / Time No Known Allergies Allergy Verified 10/26/22 13:00 Home Medications Medication Instructions Recorded Confirmed Type cyanocobalamin (vitamin B-12) 1,000 mcg PO DAILY #30 tabs 03/17/19 10/26/22 Rx 1,000 mcg tablet albuterol sulfate 90 mcg/actuation 2 inhalation inhalation Q4-6H PRN 03/24/19 10/26/22 Rx aerosol inhaler shortness of breath or wheezing #8.5 grams vits 75-iron 28 mg-folic 1 pkg PO DAILY 08/02/19 10/26/22 History acid 800 mcg-omega3 440 mg oral pack (Daily ) labetalol 100 mg tablet 100 mg PO BID 10/23/22 10/26/22 History omeprazole 20 mg capsule,delayed 20 mg PO DAILY 10/23/22 10/26/22 History release progesterone micronized 100 mg 100 mg PO HS 10/23/22 10/26/22 History capsule Patient hx anesthesia problems: none Family hx anesthesia problems: none Results Review: All pre-operative results and documents have been reviewed as part of the pre-operative evaluation. [facility] Past Medical History Medical History Anemia Diabetes HTN (hypertension) Migraines Surgical History Surgical History History of D&C 2000 for spontaneous Hx laparoscopic cholecystectomy Hx of gastric bypass gastric sleeve initially performed December of 2018; in 2021 she had her small intestines partially removed with the reanastomosis; revision to a Sundeep-en-Y in 2022 performed in [place] Social History Social History Smoking status: Never smoker Second hand tobacco smoke exposure: No Alcohol intake: never Drinks per week: 1 Substance use: never Substance use type: does not use Living arrangements: alone Gender identity (if verbalized by the patient): Female Sexual Orientation (if Verbalized by the Patient): Straight or Heterosexual Spiritual care concerns: No Agree to blood products: No Anes - Eval Final PreProcedure Day of Procedure 10/26/22 13:28 Patient weight: obese Heart: regular rate and rhythm Lungs: clear to auscultation Airway: Mallampati scale class II Neurological: alert and oriented Last oral intake: >/= 8 hours ASA classification: II Emergent: no Anesthetic plan: proceed Anesthesia type and monitoring: general GIVS and standard monitoring Results Review: All pre-operative results and documents have been reviewed as part of the pre-operative evaluation. Informed Consent: The patient's anesthetic plan and its attendant risks and benefits were discussed with the patient/family/POA. Questions were solicited and answers provided to the satisfaction of the patient/family/POA.
[2022-10-26] MEDS: LIDOCAINE HCL 1% LOCAL INJ 20 ML VIAL 10 ML INFILTRATE (14:20)
[2022-10-26] MEDS: KETOROLAC 30 MG/ML VIAL (*BKC) IV PUSH (14:24)
--- NOTE | 2022-10-26 14:26 | P.OP_ITS ---
Procedure Note - Detailed Date of Procedure 10/26/22 Pre-op Diagnosis missed Ab Post-op Diagnosis Same Procedure Performed Suction D&C Surgeon Junie Vega MD Anesthesia MAC and Local Findings Uterus initially sounds to 12cm. Moderate products of conception. Uterus sounds to 8cm at the end of the procedure. Description of Procedure The patient is taken to the operating room and placed under anesthesia in the dorsal lithotomy position. She was prepped and draped in the usual sterile fashion. [place] speculum was placed in the vagina and the cervix grasped on the anterior lip with a tenaculum. The cervix is injected in each quadrant with 1% lidocaine. Uterus is sounded to 12cm. The cervix is serially dilated with [place]gar to an 8. The suction curved 8mm curette is used to evacuate the uterus until no further products were noted in the tubing. The sharp curette is used and a good uterine cry was noted in all areas. One additional pass was taken with the suction curette. No additional products were noted. All instruments are removed. Sponge, needle, and instrument counts are correct per the OR staff. Patient was awakened from anesthesia and taken to recovery in stable condition. Estimated Blood Loss 5 Drains No Packing No Pathology Yes (Products of conception) Complications No immediate complications Condition Stable Disposition PACU
[2022-10-26 14:32] VITALS: BP 114/64; PULSE 68; RESP 12; O2SAT 98
[2022-10-26 15:00] VITALS: BP 132/66; PULSE 53; RESP 12; O2SAT 98
[2022-10-26 15:30] VITALS: BP 151/83; PULSE 61; RESP 12
[2022-10-26 16:00] VITALS: BP 116/63; PULSE 60; RESP 12
== END 2022-10-26 16:38 | disposition home or self-care (01) ==
PROVIDERS: PCP Physician Assistant; Visit Provider Obstetrics & Gynecology Gynecology
PROC: (CPT 59820; principal; 2022-10-26 14:15)
DX: O02.1 Missed abortion (principal); I10 Essential (primary) hypertension; E11.9 Type 2 diabetes mellitus without complications; D64.9 Anemia, unspecified; Z79.51 Long term (current) use of inhaled steroids; Z98.84 Bariatric surgery status
CPT/HCPCS: 59820; 88305; A9270; J1100; J1885; J2250; J2704; J3010; J7120

== ENCOUNTER 2022-11-10 16:46 | Outpatient (CLI) | payer OTHER, SELFPAY ==
[2022-11-14 09:50] LABS: Heparin, Anti-XA <0.20 IU/mL
== END 2022-11-10 16:47 | disposition home or self-care (01) ==
LOC: ANHLAB 16:48
PROVIDERS: PCP Physician Assistant; Visit Provider Obstetrics & Gynecology Gynecology
DX: N96 Recurrent pregnancy loss (principal)
CPT/HCPCS: 36415; 85520

== ENCOUNTER 2022-11-13 15:32 | Outpatient (CLI) | payer OTHER, SELFPAY | END 2022-11-13 15:33 | disposition home or self-care (01) | PROVIDERS: PCP Physician Assistant; Visit Provider Obstetrics & Gynecology Gynecology | DX: N96 Recurrent pregnancy loss (principal) | CPT/HCPCS: 36415; 88230; 88262 ==

== ENCOUNTER 2023-04-07 11:42 | Outpatient (CLI) | payer OTHER, SELFPAY ==
[2023-04-07 12:59] LABS: HIV 1/2 Ab P24 Ag Result Negative (Negative)
[2023-04-07 13:09] LABS: Hepatitis B Surface Antigen Negative (Negative)
[2023-04-07 13:15] LABS: HAV RESULT Negative (Negative); Hepatitis B Core IgM Result Negative (Negative)
[2023-04-07 13:27] LABS: Hepatitis C Virus Antibody Negative (Negative)
[2023-04-07 16:01] LABS: Rapid Plasma Reagin Non-Reactive (NonReactive)
== END 2023-04-07 11:43 | disposition home or self-care (01) ==
LOC: ANHLAB 11:44
PROVIDERS: PCP Physician Assistant; Visit Provider Obstetrics & Gynecology Gynecology
DX: Z11.3 Encounter for screening for infections with a predominantly sexual mode of transmission (principal)
CPT/HCPCS: 36415; 80074; 86592; 86703; G0432

== ENCOUNTER 2023-12-17 13:53 | Emergency (ER) | payer OTHER, SELFPAY ==
[2023-12-17 13:59] VITALS: BP 145/78; PULSE 80; RESP 18; TEMP 36.5; O2SAT 100
[2023-12-17 14:38] LABS: BEDSIDEPREGUCG Negative (Negative)
--- NOTE | 2023-12-17 14:40 | ED.FEMALEGU ---
HPI - Female Genitourinary General Chief complaint: [employer] Stated complaint: vaginal pain Time Seen by Provider: 12/17/23 14:17 History of Present Illness HPI Narrative: 43-year-old female presents with vaginal discharge x2 days. Patient states she knows red streaking with wiping today. Patient is sexually active with multiple partners. Patient is unsure she is . Patient denies any other symptoms Related Data Home Medications Medication Instructions Recorded Confirmed vits 75-iron 28 mg-folic 1 pkg PO DAILY 08/02/19 10/26/22 acid 800 mcg-omega3 440 mg oral pack (Daily ) labetalol 100 mg tablet 100 mg PO BID 10/23/22 10/26/22 omeprazole 20 mg capsule,delayed 20 mg PO DAILY 10/23/22 10/26/22 release progesterone micronized 100 mg 100 mg PO HS 10/23/22 10/26/22 capsule Allergies Allergy/AdvReac Type Severity Reaction Status Date / Time No Known Allergies Allergy Verified 10/26/22 13:00 Review of Systems Review of Systems: A 10 system review of systems was completed on the patient and is negative except for what is stated in the HPI. Nursing and ancillary documentation was reviewed. [facility] Past Medical History Medical History Anemia Diabetes HTN (hypertension) Migraines Surgical History Surgical History History of D&C 2000 for spontaneous Hx laparoscopic cholecystectomy Hx of gastric bypass gastric sleeve initially performed December of 2018; in 2021 she had her small intestines partially removed with the reanastomosis; revision to a Sundeep-en-Y in 2022 performed in [place] Social History Social History Smoking status: Never smoker Second hand tobacco smoke exposure: No Alcohol intake: never Drinks per week: 1 Substance use: never Substance use type: does not use Living arrangements: alone Gender identity (if verbalized by the patient): Female Sexual Orientation (if Verbalized by the Patient): Straight or Heterosexual Spiritual care concerns: No Agree to blood products: No Exam Narrative: GENERAL: Well-appearing, well-nourished, and in no acute distress. HEAD: Normocephalic, atraumatic. EYES: PERRLA and EOMI. ENT: Nares clear, no rhinorrhea or epistaxis. Mucous membranes moist. NECK: Supple. CHEST: Clear to auscultation. No respiratory distress. HEART: Regular rate and rhythm. No murmur heard. Normal peripheral pulses. ABDOMEN: Soft, nontender, nondistended, normal active bowel sounds. EXTREMITIES: Normal range of motion. No edema. SKIN: Warm, dry, no rash. NEURO: No focal deficits. Alert and oriented x3. PSYCH: Normal mood and affect. Course Course Emergency Course: Order UA, STD panel and of urine Vital Signs Vital signs: Vital Signs Temperature 36.5 C 12/17/23 13:59 Pulse Rate 80 12/17/23 13:59 Respiratory Rate 18 12/17/23 13:59 Blood Pressure 145/78 H 12/17/23 13:59 Pulse Oximetry 100 12/17/23 13:59 Oxygen Delivery Room Air 12/17/23 13:59 Temperature 36.5 C 12/17/23 13:59 Pulse Rate 80 12/17/23 13:59 Respiratory Rate 18 12/17/23 13:59 Blood Pressure 145/78 H 12/17/23 13:59 Pulse Oximetry 100 12/17/23 13:59 Oxygen Delivery Room Air 12/17/23 13:59 MDM - Female Genitourinary MDM Narrative Medical decision making narrative: Patient agreeable with treatment for STDs. Will order azithromycin and Rocephin prior to discharge UA shows UTI will start on cephalexin. Urine was negative. Will prescribed singular at night related to increased cough and Lab Data Labs: Lab Results 12/17/23 12/17/23 Range/Units 14:36 14:38 Urine Color Yellow (Yellow) Urine Appearance Cloudy H (Clear) Urine pH 5.5 (5.0-9.0) Ur Specific [place] 1.012 (1.001-1.035
[2023-12-17 14:58] LABS: Add Urine Microscopic? YES; Appearance Urine Cloudy (Clear); Bacteria Urine Rare /hpf; Bilirubin Urine Negative (Negative); Blood Urine Trace (Negative); Color Urine Yellow (Yellow); Glucose Urine UA Negative (Negative); Ketones Urine Negative (Negative); Leukocyte Esterase Ur 2+ LEU/UL (Negative); Nitrate Urine Negative (Negative); Non Pathogenic Casts 0-2; Protein Urine Negative (Negative); RBC Urine 0-2 /hpf (0-2); Specific Grav Ur 1.012 (1.001-1.035); Squamous Epithelial Cell Urine Moderate /hpf (Few); Urobilinogen Urine 0.2 mg/dL (<2.0); WBC Urine 21-50 /hpf (0-3); pH Urine 5.5 (5.0-9.0)
[2023-12-17] MEDS: AZITHROMYCIN 250 MG TABLET 1000 MG PO (15:10)
[2023-12-17] MEDS: cefTRIAXone 250 MG VIAL IM (15:11)
[2023-12-17 16:20] LABS: Chlamydia trachomatis NOT DETECTED (NOT DETECTE); Neisseria gonorrhoeae PCR NOT DETECTED (NOT DETECTE)
== END 2023-12-17 15:46 | disposition home or self-care (01) ==
PROVIDERS: Emergency Provider Nurse Practitioner Family
DX: N89.8 Other specified noninflammatory disorders of vagina (principal); E11.9 Type 2 diabetes mellitus without complications; I10 Essential (primary) hypertension; G43.909 Migraine, unspecified, not intractable, without status migrainosus; Z98.84 Bariatric surgery status; N39.0 Urinary tract infection, site not specified
CPT/HCPCS: 81001; 81025; 87086; 87491; 87591; 96372; 99284; A9270; J0696

== ENCOUNTER 2024-08-11 00:42 | Emergency (ER) | payer OTHER, MEDICAID, SELFPAY ==
--- OUTSIDE RECORDS SUMMARY | 2024-08-11 00:44 | XMS_ITS | Clinical Summary ---
Author Organization [facility] Angie Valiente Address [address] [place] [address] Care Team Providers Care Machine Finisher Name Role Phone Provider, Abstract Primary Care Provider Unavail able Allergies No known active allergies Medications ferrous sulfate 325 mg (65 mg iron) tablet Take 325 mg by mouth daily. Active albuterol HFA 90 mcg inhaler Take 2 Puffs by inhalation every 6 hours as needed for Shortness of Breath. 8.5 Gram 0 Active vitamin-iron fumarate-folic acid 27 mg-0.8 mg Tablet Take 1 Tablet by mouth daily. Active fluconazole (DIFLUCAN) 150 mg tablet 0 Active blood sugar diagnostic (OneTouch Verio test strips) Strip OneTouch Verio test strips Active Blood-Glucose Meter (OneTouch Verio Flex meter) OneTouch Verio Flex Meter Active lancets (OneTouch Delica Plus Lancet) 33 gauge OneTouch Delica Plus Lancet 33 gauge Active aspirin (ECOTRIN EC) 81 mg Tablet, Delayed Release (E.C.) aspirin 81 mg tablet,delayed release TAKE 1 TABLET BY MOUTH TWICE A DAY Active Calcium-Cholec alciferol, D3, 600 mg(1,500mg) -400 unit Capsule 2 times daily. Activ e cetirizine (ZyrTEC) 10 mg tablet cetirizine 10 mg tablet Active cyanocobalamin 1,000 mcg Tablet cyanocobalamin (vit B-12) 1,000 mcg tablet TAKE 1 TABLET BY MOUTH EVERY DAY Active folic acid (FOLVITE) 1 mg tablet Take 4 mg by mouth. Active NIFEdipine (PROCARDIA XL) 30 mg Extended Release 24 hour tablet nifedipine ER 30 mg tablet,extended release 24 hr TAKE ONE TABLET BY MOUTH TWICE A DAY Active oxyCODONE (ROXICODONE) 5 mg tablet Take 5 mg by mouth. 1 Active topiramate (TOPAMAX) 50 mg tablet Take 50 mg by mouth 2 times daily. 4 Active tirzepatide, weight loss, (Zepbound) 2.5 mg/0.5 mL Pen Injector Inject 2.5 mg by subcutaneous injection every 7 days. 4 Active sucralfate (CARAFATE) 100 mg/mL suspension Take 1 Gram by mouth. 3 Active Phentermine 15 mg Capsule Take 15 mg by mouth daily before breakfast. 4 Active ondansetron (ZOFRAN ODT) 4 mg Tablet, Rapid Dissolve Take 4 mg by mouth every 6 hours as needed. 3 Active omeprazole (PriLOSEC) 20 mg Capsule, Delayed Release(E.C.) Take 20 mg by mouth daily. 3 Active moxifloxacin (VIGAMOX) 0.5 % solution 1 Drop by Ophthalmic route. 2 Active miSOPROStoL (CYTOTEC) 200 mcg tablet Take 200 mcg by mouth 2 times daily. 3 Active lisinopril-hyd roCHLOROthiazi de (ZESTORETIC) 20-12.5 mg tablet Take 1 Tablet by mouth daily. Active ergocalciferol (VITAMIN D2) 50,000 unit capsule Take 50,000 Units by mouth every 7 days. 3 Active cyclobenzaprin e (FLEXERIL) 10 mg tablet Take 10 mg by mouth every 8 hours as needed. 3 Active amLODIPine (NORVASC) 2.5 mg tablet Take 2.5 mg by mouth daily. Active acetaminophen (TYLENOL) 500 mg tablet Active diazePAM (VALIUM) 5 mg tablet Active gatifloxacin (ZYMAXID) 0.5 % solution Active montelukast (SINGULAIR) 10 mg tablet Take 1 tablet every day by oral route. Active prednisoLONE acetate (PRED FORTE) 1 % suspension Active traMADoL (ULTRAM) 50 mg tablet Active triamcinolone acetonide (KENALOG) 0.1 % Cream APPLY A THIN LAYER TO THE AFFECTED AREA(S) BY TOPICAL ROUTE 2 TIMES PER DAY Active linaCLOtide (LINZESS) 72 mcg Capsule capsule Take 72 mcg by mouth daily before breakfast. 4 Active cephALEXin (KEFLEX) 500 mg capsule Take 1 Capsule by mouth 2 times daily. 4 Active metroNIDAZOLE (FLAGYL) 500 mg tablet 4 Active letrozole (Femara) 2.5 mg tablet Take 2 tables q cycle days 5-9 10 Tablet 4 Active progesterone micronized (PROMETRIUM) 100 mg Capsule Take 2 Capsules (200 mg) by mouth daily at bedtime. 30 Capsule 2 4 Active Choriogonadotr opin Charlie,HumRec (Ovidrel) 250 mcg/0.5 mL Syringe INJECT ONE PREFILLED SYRINGE UNDER THE SKIN TODAY 0.5 mL 4 Active Hospital, Clinic, or Other Facility Administered Medication Ordered Dose Route Frequency Start Date End Date Status Choriogonadotropin Charlie,HumRec Syringe 250 mcgIndications:Procreati ve management for assisted fertility procedure cycle 250 mcg subCUT ONE TIME ONLY 01/24/2024 Active Active Problems Problem Noted Date Diagnosed Date Sickle cell trait 08/30/2019 Iron deficiency anemia 08/30/2019 Encounters Date Type Department Care Team Description 07/27/2024 External Device Data [facility] ABSTRACTION Provider, Abstract 07/26/2024 External Device Data [facility] ABSTRACTION Provider, Abstract 07/25/2024 External Device Data [facility] ABSTRACTION Provider, Abstract 05/24/2024 External Device Data [facility] ABSTRACTION Provider, Abstract 05/16/2024 [facility] HEAT TREATING OPERATOR [facility] [address] [facility] [address] [place] [address] Jimbo Castillo MD Needs Appointment 05/16/2024 [facility] HEAT TREATING OPERATOR [facility] [address] [facility] [address] [place] [address] Jimbo Castillo MD Needs Appointment 05/16/2024 [facility] Women[facility] Clinical Support [address] [place] [address] Latsoha Aleman RN Needs Appointment 05/13/2024 External Device Data [facility] ABSTRACTION Provider, Abstract 05/12/2024 External Device Data [facility] ABSTRACTION Provider, Abstract from Last 3 Months Family History Medical History Relation Name Comments Cancer Father Cancer Mother Relation Name Status Comments Brother 1 Alive Brother 2 Alive Father Alive FATHER HAD PROS [place] CANCER. Mother MOTHER HAD LUNG CANCER Sister Alive Social History Tobacco Use Types Packs/Day Years Used Date Smoking Tobacco: Never Smokeless Tobacco: Never Tobacco Cessation:Counseling Given: Not Answered Alcohol Use Standard Drinks/Week Comments Yes 0 (1 standard drink = 0.6 oz pur e alcohol) OCCASSIONLLY Comments No Sex and Gender Information Value Date Recorded Sex Assigned at Not on file Legal Sex Female 2:18 PM CYCLE LIAISON Gender Identity Not on file Sexual Orientation Not on file Last Filed Vital Signs Vital Sign Reading Time Taken Comments Blood Pressure 134/82 01/13/2024 12:03 PM CYCLE LIAISON Pulse 86 08/02/2020 10:04 AM CDT Temperature 36.6 C (97.8 F) 08/02/2020 10:04 AM CDT Respiratory Rate 18 06/29/2019 2:36 PM CDT Oxygen Saturation 97% 08/02/2020 10:04 AM CDT Inhaled Oxygen Concentration - - Weight 104.3 kg (230 lb) 01/24/2024 11:44 AM CYCLE LIAISON Height 165.1 cm (5' 5) 08/02/2020 10:04 AM CDT Body Mass Index 38.27 08/02/2020 10:04 AM CDT Plan of Treatment Health Maintenance Due Date Last Done Comments DIABETES ANNUAL RETINAL EXAM 1998 DIABETES MICROALBUMIN ANNUAL SCREEN 1998 LDL CHOLESTEROL ANNUAL 1998 DTAP/TDAP/TD VACCINES (1 - Tdap) 09/21/1999 HEPATITIS B VACCINES (1 of 3 - 19+ 3-dose series) 09/21/1999 HPV/Cotest (21-29) 2001 CERVICAL CANCER SCREENING 2010 HPV/Cotest (30-65) 2010 PAP SMEAR 2010 DIABETES ANNUAL FOOT EXAM 05/08/2014 05/08/2013 BREAST CANCER SCREENING 2020 DIABETES HBA1C Q 6 MONTHS 05/18/2023 11/17/2022 INFLUENZA VACCINE (#1) 2023 , 12/29/2016 HPV VACCINES Aged Out No longer eligi ble based on patient's age to complete this topic Insurance LOCAL PLUS Care Teams Machine Finisher Relationship Specialty Start Date End Date Provider, Abstract NO ADDRESS ON FILE PCP - General 05/17/19
--- OUTSIDE RECORDS SUMMARY | 2024-08-11 00:45 | XMS_ITS | Clinical Summary ---
Author Organization [facility] Care Team Providers Care Space Technologist Name Role Phone Unavailable Primary Care Provider Unavailabl e Social History Tobacco Use Types Packs/Day Years Used Date Smoking Tobacco: Never Assessed Comments Unknown Sex and Gender Information Value Date Recorded Sex Assigned at Not on file Legal Sex Female 10:43 AM SKEIN YARN D[employer]ER Gender Identity Not on file Sexual Orientation Not on file Plan of Treatment Health Maintenance Due Date Last Done Comments Hepatitis C Virus (HCV) Screening 1980 TdaP Immunization 1980 Hepatitis B Immunization (1 of 3 - 19+ 3-dose series) 09/21/1999 SARS-COV-2 Immunization ( - 2023- season) 2023 Influenza Immunization (Seas on Ended) 2024 01/24/2020, 12/29/2016 Respiratory Syncytial Virus (RSV) Immunization (Adult) (1 - 1-dose 75+ series) 09/21/2055 Meningococcal Immunization (ACWY) Aged Out No longer eligible b ased on patient's age to complete this topic Pneumococcal Immunization Combined Aged Out No longer eligible b ased on patient's age to complete this topic Rotavirus Immunization Aged Out No lo nger eligible based on patient's age to complete this topic
--- OUTSIDE RECORDS SUMMARY | 2024-08-11 00:45 | XMS_ITS | Clinical Summary ---
Author Organization [facility] Address [address] [place] [id number] Care Team Providers Care Bell Spinner Sousaphones Name Role Phone Unknown, Notinfile Primary Care Provider Unavail able Allergies No known active allergies Medications AMLODIPINE BESYLATE, BULK, MISCIndications :hypertension Take 5 mg by mouth daily Active cyanocobalamin (Vitamin B-12) 1,000 mcg tabletIndicatio ns:Prevention of Vitamin B12 Deficiency Take 1,000 mcg by mouth daily Active ferrous fumarate 325 mg (106 mg iron) tabletIndicatio ns:Iron Deficiency Anemia Take 106 mg of elemental iron by mouth 2 (two) times a day Active lisinopril-hydr oCHLOROthiazide (ZESTORETIC) 20-12.5 mg per tabletIndicatio ns:hypertension Take 1 tablet by mouth daily Active vitamin ferrous fumarate-folic () 28 mg iron- 800 mcg tablet daily 1 Active albuterol HFA (ProAir HFA) 90 mcg/actuation inhaler ProAir HFA 90 mcg/actuation aerosol inhaler 0 Active aspirin 81 mg enteric coated tablet aspirin 81 mg tablet,delayed release TAKE 1 TABLET BY MOUTH TWICE A DAY Active calcium carbonate-vitam in D3 (CALTRATE 600 + D) 1500 mg (600 mg elemental) -400 units per tablet Take 1 tablet by mouth 2 (two) times a day 1 Active cetirizine (ZyrTEC) 10 mg tablet cetirizine 10 mg tablet Active Slynd 4 mg (28) tablet Take 1 tablet by mouth daily 1 Active folic acid (FOLVITE) 1 mg tablet folic acid 1 mg tablet TAKE 2 TABLETS TWICE A DAY BY MOUTH DIRECTED. Active lancets 33 gauge misc OneTouch Delica Plus Lancet 33 gauge Active oxyCODONE (ROXICODONE) 5 mg immediate release tabletIndicatio ns:Pain Take 1 tablet (5 mg total) by mouth every 4 (four) hours as needed for pain for up to 10 doses 10 tablet Active Additional Information Patient not taking.Reported on 06/09/2024 Active Problems Patient Care Coordination No te Formatting of this note migh t be different from the original. Ms. Marcia Brody is a 38-year-old with interstitial lung disease. Patient initially presented with symptoms of shortness of breath in September 2018. She reports a chronic dry cough at times. Her breathing has not impaired her ADLs and she is able to work out without feeling short of breath. On 07/04/2019 the patient underwent a chest CT with contrast which demonstrated patchy ground-glass opacities throughout the lungs bilaterally. There was a widespread distribution of septal thickening in the lungs, but this feature is milder than the ground-glass opacities. This is unchanged since March 2019. The differential diagnosis would include chronic hypersensitivity pneumonitis, chronic eosinophilic pneumonia, nonspecific interstitial pneumonitis, pulmonary alveolar proteinosis and smoking related interstitial lung disease. On 04/20/2019 the patient underwent pulmonary function testing which showed a post bronchodilator FEV1 of 91% of predicted and a DLCO of 55% of predicted. On 03/17/2019 the patient underwent an echocardiogram which showed left ventricular systolic function estimated at 65-70%. There was moderately increased left ventricular wall thickness. The left ventricular diastolic function is grade 1 diastolic dysfunction. The right ventricular systolic function was normal. Patient is currently trying to get pulmonary clearance in order to undergo a laparoscopic cholecystectomy. Patient has a BMI of 42.9. Patient is a never smoker. Patient presents today at request of Dr. Ochoa for surgical lung biopsy. Problem Noted Date Diagnosed Date Anemia 07/25/2020 Epidermoid cyst 10/21/2015 Encounters Date Type Department Care Team Description 06/09/2024 5:30 PM CDT Office Visit [facility] at [address] [place] [address] [place] [address] Raysa Kilpatrick, CHAPO Acute cough (Primary Dx); Shortness of breath; Upper respiratory symptom; Preventative health care 05/25/2024 Results Follow-Up [facility] [address] [facility] Room [address] (Third Floor) [place] [address] Latosha Stanley RN Influenza A/B, RSV, and COVID-19 PCR Nasopharyngeal 05/24/2024 9:52 PM CDT - 05/25/2024 12:39 AM CDT Emergency [facility] Emergency Department [address] [place] [address] Juan Francisco Reed MD Shortness of breath (Primary Dx); Subacute cough Discharge Disposition: Discharge to home or self care 05/24/2024 3:34 PM CDT - 05/24/2024 11:59 PM CDT Hospital Encounter [facility] [address] [place] [id number] Discharge Disposition: Discharge to home or self care 05/24/2024 10:15 AM CDT Office Visit [facility] at [address] [place] [address] [place] [address] Cough, unspecified type 05/24/2024 [facility] [address] [place] [address] Room [facility] (Third Floor) [place] [address] Nahomi Grullon RN [place] Employee Screening from Last 3 Months Surgical History Surgery Date Site/Laterality Comments LASIK 2015 BARIATRIC SURGERY 2019 Medical History Medical History Date Comments Interstitial lung disease (HCC) Hypertension Anemia 2002 Sickle cell anemia (HCC) 1981 Family History Medical History Relation Name Comments Obesity Father Mando Brody Cancer Mother Zahra Brody Relation Name Status Comments Father Mando Brody Alive Mother Sweeney Brody Alive Social History Tobacco Use Types Packs/Day Years Used Date Smoking Tobacco: Never Smokeless Tobacco: Never Alcohol Use Standard Drinks/Week Comments Not Currently 0 (1 standard drink = 0.6 oz pur e alcohol) AUDIT-C Answer Date Recorded Q1: How often do you have a drink containing alcohol? Never 06/09/2024 Q2: How many drinks containi ng alcohol do you have on a typical day when you are drinking? Patient does not drink Q3: How often do you have si x or more drinks on one occasion? Never 06/09/2024 Personal Safety Answer Date Recorded Have you ever been in or are you currently in a harmful physical or emotional relationship or is someone making you feel afraid or unsafe? Denies 05/24/2024 Comments Unknown Sex and Gender Information Value Date Recorded Sex Assigned at Not on file Legal Sex Female 2:31 AM [employer] Gender Identity Female 07/07/2019 1:43 PM CDT Sexual Orientation Straight 07/07/2019 1: 43 PM CDT Obstetrics History Para Term AB IAB SAB Ectopic Multiple Livin g Live Births 1 Date Outcome GA Total Labor Labor/2nd/3rd Weight Sex Type Anes PTL Brianda A1 A5 Name Clin Last Filed Vital Signs Vital Sign Reading Time Taken Comments Blood Pressure 190/102 06/09/2024 5:35 PM CDT Pulse 75 06/09/2024 5:35 PM CDT Temperature 36.7 C (98 F) 06/09/2024 5:35 PM CDT Respiratory Rate 16 06/09/2024 5:35 PM CDT Oxygen Saturation 98% 06/09/2024 5:35 PM CDT Inhaled Oxygen Concentration - - Weight 105.7 kg (233 lb) 06/09/2024 5:35 PM CDT Height 165.1 cm (5' 5) 06/09/2024 5:35 PM CDT Body Mass Index 38.77 06/09/2024 5:35 PM CDT Plan of Treatment Health Maintenance Due Date Last Done Comments Breast Cancer Screening-Mammogram 1980 Cervical Cancer Screening 1980 Depression Screening 1980 Hepatitis C Screening 1980 DTaP/Tdap/Td Vaccine (1 - Tdap) 09/21/1991 Varicella Vaccines (1 of 2 - 13+ 2-dose series) 1993 Hepatitis B Screening 1998 Regular Well Visit/Exam 18-64 1998 Influenza Vaccine (Season Ended) 2024 01/24/2020, 12/29/2016 HPV Vaccines Aged Out No longer eligi ble based on patient's age to complete this topic Pneumococcal vaccine <65 Aged Out No longer eligible based on patient's age to complete this topic Procedures Procedure Name Priority Date/Time Associated Diagnosis Comments POCT RAPID HIV ANTIBODY COMMUNITY SCREENING-GENEVA ELIGIBLE Routine 05/24/2024 10:35 PM CDT POCT HCG, URINE Routine 05/24/2024 10:34 PM CDT TROPONIN I HIGH-SENSITIVITY 2-HOUR Timed 05/24/2024 10:03 PM CDT TRICHOMONAS VAGINALIS PCR STAT 05/24/2024 9:54 PM CDT N. GONORRHOEAE/C. TRACHOMATIS AMPLIFICATION STAT 05/24/2024 9:54 PM CDT EGFR STAT 05/24/2024 8:21 PM CDT DIFFERENTIAL AUTO STAT 05/24/2024 8:2 1 PM CDT TROPONIN I HIGH-SENSITIVITY SERIES (BASELINE, 2HR, 4HR, 6HR) STAT 05/24/2024 8:21 PM CDT CBC WITH AUTO DIFFERENTIAL STAT 05/24/2024 8:21 PM CDT COMPREHENSIVE METABOLIC PANEL STAT 05/24/2024 8:21 PM CDT XR CHEST PA LATERAL 2 VIEWS ED 05/24/2024 7:14 PM CDT ECG 12-LEAD STAT 05/24/2024 7:03 PM CDT INFLUENZA A/B, RSV, AND COVID-19 PCR Routine 05/24/2024 5:02 PM CDT Cough, unspecified type from Last 3 Months Results * POCT Rapid HIV Antibody Community Screening-[place] Eligible (05/24/2024 10:35 PM CDT) [facility] Rapid HIV, POC Negative Negative Lot Number [id number] QC Control Line Acceptable Blood 05/24/2024 10:3 5 PM CDT Vivi Ratliff MD POINT OF CARE TEST ORDERABL ES Final Result * (ABNORMAL) POCT hCG, urine (05/24/2024 10:34 PM CDT) [facility] HCG, ur, POC Negative(.) Negative Lot Number [id number] QC Backgroud Clear Acceptable QC Control Line Acceptable Urine 05/24/2024 10:3 4 PM CDT Vivi Ratliff MD POINT OF CARE TEST ORDERABL ES Final Result * Troponin I high-sensitivity 2-hour (05/24/2024 10:03 PM CDT) [facility] Trop I hs 12 <=17 ng/L Comment: Interpretive Data For further hscTnI resources including the diagnostic algorithm and an aid in interpretation, copy and paste this link: https://bjhlab.testcatalog.org/show/hsTrop-1 Current Interpretive Data last revised 2019. Trop I hs delta 2 ng/L [facility] Trop I hs interp Insignificant [facility] Blood 05/24/2024 10:0 3 PM CDT 05/24/2024 10:14 PM CDT Vivi Ratliff MD LAB BLOOD ORDERABLES Final Result [facility] [place] [address] * N. gonorrhoeae/C. trachomatis Amplification Urine (05/24/2024 9:54 PM CDT) [facility] C. trachomatis Not Detected Not Detected [facility] N. gonorrhoeae Not Detected Not Detected [facility] Comment: Interpretive Data This assay detects Chlamydia trachomatis and Neisseria gonorrhoeae by nucleic acid amplification testing (NAAT). This assay has been cleared by the [place] Food and Drug administration. The performance characteristics of this test have been verified by the [facility] Molecular Infectious Disease laboratory. The performance characteristics of this test have not been evaluated in individuals less than 14 years of age. Current Interpretive Data last revised 2023. Urine (None) 05/24/2024 9:54 PM CDT 05/24/2024 10:10 PM CDT Vivi Ratliff MD LAB MICROBIOLOGY - GENERAL ORDERABLES Final Result Performing Organization Address [facility] de Phone Number [facility] [place] [address] [facility] * Trichomonas vaginalis PCR Urine (05/24/2024 9:54 PM CDT) Pathologist [facility] Trichomonas DNA Not Detected Not Detected [facility] Urine 05/24/2024 9:54 PM CDT 05/24/2024 10:10 PM CD[address] [facility] 05/24/2024 11:45 PM CDT Interpretive Data: This assay detects Trichomonas vaginalis by nucleic acid amplification testing (NAAT). This assay has been cleared by the [place] Food and Drug administration. The performance characteristics of this test have been verified by the [facility] Molecular Infectious Disease laboratory. Excess blood in specimens may be inhibitory and result in false negative results. The performance of this test has not been evaluated in women or individuals less than 18 years of age. Vivi Ratliff MD LAB MICROBIOLOGY - GENERAL ORDERABLES Final Result Performing Organization Address [facility] de Phone Number [facility] [place] [address] [facility] * Troponin I high-sensitivity series (baseline, 2hr, 4hr, 6hr) (05/24/2024 8:21 PM CDT) Trop I hs 10 <=17 ng/L Comment: Interpretive Data For further hscTnI resources including the diagnostic algorithm and an aid in interpretation, copy and paste this link: https://bjhlab.testcatalog.org/show/hsTrop-1 Current Interpretive Data last revised 2019. Blood 05/24/2024 8:21 PM CDT 05/24/2024 8:34 PM CDT Vivi Ratliff MD LAB BLOOD ORDERABLES Final Result Performing Organization Address City/[facility]/ZIP Co de Phone Number [facility] [place] [address] * eGFR (05/24/2024 8:21 PM CDT) eGFR 63 >=60 mL/min/1. 73 m2 Comment: Interpretive Data Reference Interval Normal >/= 90 mL/min/1.73m2 Mildly decreased* 60 - 89 mL/min/1.73m2 Mildly to moderately decreased 45 - 59 mL/min/1.73m2 Moderately to severely decreased 30 - 44 mL/min/1.73m2 Severely decreased 15 - 29 mL/min/1.73m2 Kidney Failure < 15 mL/min/1.73m2 *Relative to young adult level Estimated glomerular filtration rate is determined by the 2020 CKD-EPI equation recommended by the National Kidney Foundation (A Unifying Approach to GFR Estimation: Recommendations of the NKF-ASK Task Force on Reassessing the Inclusion of Race in Diagnosing Kidney Disease, JASN 2020). The CKD-EPI equation should not be used for patients with unstable renal function and has not been validated in children and those over 70. Current interpretive data was last reviewed 2021. Blood 05/24/2024 8:21 PM CDT 05/24/2024 8:34 PM CDT Vivi Ratliff MD LAB BLOOD ORDERABLES Final Result [facility] [place] [address] * Differential, auto (05/24/2024 8:21 PM CDT) Neutrophil abs 3.3 1.5 - 6.5 K/cumm Imm gran abs 0.0 0.0 - 0.1 K/cumm [facility] Lymphocyte abs 1.5 0.8 - 3.3 K/cumm [facility] Monocyte abs 0.8 0.2 - 0.8 K/cumm [facility] Eosinophil abs 0.3 0.0 - 0.5 K/cumm [facility] Basophil abs 0.0 0.0 - 0.1 K/cumm [facility] Neutrophil pct 55.1 % [facility] Comment: Interpretive Data Percent cell count reference ranges are not reported, since discordance with absolute values may lead to misinterpretation of CBC data. Current Interpretive Data was last revised on 2017. Imm gran pct 0.2 % [facility] Comment: Interpretive Data Percent cell count reference ranges are not reported, since discordance with absolute values may lead to misinterpretation of CBC data. Current Interpretive Data was last revised on 2017. Lymphocyte pct 25.6 % [facility] Comment: Interpretive Data Percent cell count reference ranges are not reported, since discordance with absolute values may lead to misinterpretation of CBC data. Current Interpretive Data was last revised on 2017. Monocyte pct 13.2 % [facility] Comment: Interpretive Data Percent cell count reference ranges are not reported, since discordance with absolute values may lead to misinterpretation of CBC data. Current Interpretive Data was last revised on 2017. Eosinophil pct 5.2 % [facility] Comment: Interpretive Data Percent cell count reference ranges are not reported, since discordance with absolute values may lead to misinterpretation of CBC data. Current Interpretive Data was last revised on 2017. Basophil pct 0.7 % [facility] Comment: Interpretive Data Percent cell count reference ranges are not reported, since discordance with absolute values may lead to misinterpretation of CBC data. Current Interpretive Data was last revised on 2017. Blood 05/24/2024 8:21 PM CDT 05/24/2024 8:34 PM CDT Vivi Ratliff MD LAB BLOOD ORDERABLES Final Result Performing Organization Address [facility]/ZIP Co de Phone Number [facility] [place] [address] * (ABNORMAL) CBC with auto differential (05/24/2024 8:21 PM CDT) Pathologist [facility] WBC 5.9 3.8 - 9.9 K/cumm Hgb 7.8(L) 11.9 - 15.5 g/dL [facility] Hct 27.3(L) 35.6 - 45.5 % [facility] Plt 451(H) 150 - 400 K/cumm [facility] MPV 10.5 9.1 - 12.3 fL [facility] RBC 4.23 3.90 - 5.20 M/cumm [facility] MCV 64.5(L) 81.3 - 96.4 fL [facility] MCH 18.4(L) 27.1 - 33.3 pg [facility] MCHC 28.6(L) 32.3 - 35.7 g/dL [facility] RDW CV 18.9(H) 11.1 - 14.9 % [facility] RDW SD 43.2 35.7 - 48.1 fL [facility] NRBC abs 0.00 0.00 - 0.01 K/cumm [facility] Blood 05/24/2024 8:21 PM CDT 05/24/2024 8:34 PM CDT Vivi Ratliff MD LAB BLOOD ORDERABLES Final Result [facility] Department [place] [address] * (ABNORMAL) Comprehensive metabolic panel (05/24/2024 8:21 PM CDT) Pathologist [facility] Sodium 137 135 - 145 mmol/L Potassium, pl 5.0(H) 3.3 - 4.9 mmol/L [facility] Chloride 103 97 - 110 mmol/L [facility] CO2 25 22 - 32 mmol/L [facility] Anion gap 9 2 - 15 mmol/L [facility] BUN 10 6 - 25 mg/dL [facility] Creatinine 1.11(H) 0.60 - 1.10 mg/dL [facility] Glucose 102 70 - 199 mg/dL [facility] Comment: Interpretive Data Fasting glucose >/= 126 mg/dl is diagnostic for diabetes. Fasting is defined as no caloric intake for at least 8 hours. Fasting glucose between 100 mg/dl to 125 mg/dl is diagnostic of prediabetes. In a patient with classic symptoms of hyperglycemia or hyperglycemic crisis, a random glucose >/= 200 mg/dl is diagnostic for diabetes. In the absence of unequivocal hyperglycemia, results should be confirmed by repeat testing. The classification and Diagnosis of Diabetes Diabetes Care 2021; 46: S19-S40. Current interpretive data was last revised 2022. Calcium 8.9 8.5 - 10.3 mg/dL [facility] Bilirubin, total 0.3 0.1 - 1.2 mg/dL [facility] Protein, pl 8.5 6.5 - 8.5 g/dL [facility] Albumin 4.1 3.5 - 5.0 g/dL [facility] Alk phos 124 40 - 130 Units/L [facility] ALT 25 7 - 45 Units/L [facility] AST 41 10 - 45 Units/L [facility] Blood 05/24/2024 8:21 PM CDT 05/24/2024 8:34 PM CDT Vivi Ratliff MD LAB BLOOD ORDERABLES Final Result [facility] Department [place] [address] * XR Chest PA Lateral 2 Views (05/24/2024 7:14 PM CDT) Anatomical Region Laterality Modality Body, Chest N/A Computed Radiogr aphy 05/24/2024 7:21 PM CDT Impressions 05/24/2024 8:29 PM CDT Comparison is made to chest CT 07/25/2020. No focal consolidation, pleural effusion, or pneumothorax. The cardiomediastinal silhouette is normal. Dictated by: Chandler Correa MD The radiology attending physician has personally reviewed this study, and had reviewed and/or edited this written report and agrees with it. Electronically signed by: Fernando Whyte M.D. Narrative 05/24/2024 8:29 PM CDT EXAMINATION: 2 view chest radiograph Procedure Note Fernando Whyte MD - 05/24/2024 EXAMINATION: 2 view chest radiograph IMPRESSION: Comparison is made to chest CT 07/25/2020. No focal consolidation, pleural effusion, or pneumothorax. The cardiomediastinal silhouette is normal. Dictated by: Chandler Correa MD The radiology attending physician has personally reviewed this study, and had reviewed and/or edited this written report and agrees with it. Electronically signed by: Fernando Whyte M.D. Vivi Ratliff MD IMG XR PROCEDURES Final Res ult * ECG 12-LEAD (05/24/2024 7:03 PM CDT) Narrative [facility] - 05/24/2024 7:03 PM CDT Tae Cotton Jr., MD 05/24/2024 7:06 PM ECG 12 lead Date/Time: 05/24/2024 7:03 PM Performed by: Tae Cotton Jr., MD Authorized by: Nuria Powell MD Comments: EKG Interpretation Interpreted by ED physician in absence of a oracle application consultant Ventricular rate: 102 bpm Rhythm: sinus tachycardia [place]: Normal Intervals: normal Other findings: no acute ischemia, no ST segment elevation,TWI in III Interpretation: sinus tachycardia Compared to priors: yes, similar to 10/23/22 but with sinus tachycardia Procedure Note Tae Cotton Jr., MD - 05/24/2024 7:03 PM CDT Procedure ECG 12 lead Date/Time: 05/24/2024 7:03 PM Performed by: Tae Cotton Jr. MD Authorized by: Nuria Powell MD Comments: EKG Interpretation Interpreted by ED physician in absence of a oracle application consultant Ventricular rate: 102 bpm Rhythm: sinus tachycardia [place]: Normal Intervals: normal Other findings: no acute ischemia, no ST segment elevation,TWI in III Interpretation: sinus tachycardia Compared to priors: yes, similar to 10/23/22 but with sinus tachycardia Tae Cotton Jr., MD 05/24/24 2274 us Juan Francisco Reed MD ECG ORDERABLES Darlene hernandez Result [facility] * Influenza A/B, RSV, and COVID-19 PCR Nasopharyngeal (05/24/2024 5:02 PM CDT) Pathologist [facility] COVID-19 RNA Negative Negative Influenza A RNA Negative Negative [facility] Influenza B RNA Negative Negative [facility] RSV RNA Negative Negative [facility] Comment: Interpretive data: Testing performed by [facility]. This test is performed using the [employer] Xpert Xpress CoV-2/Flu/RSV plus assay. This is a multiplex, real-time reverse transcriptase PCR assay intended for the qualitative detection of nucleic acid from SARS-CoV-2, influenza A, influenza B, and respiratory syncytial virus. This assay has been cleared by the [place] Food and Drug administration. The performance characteristics have been verified by the [facility]. Results must be considered in the clinical context, and a negative result does not rule out infection. Interpretive Data last revised 2023 Nasopharyngeal 05/24/2024 5: 02 PM CDT 05/24/2024 5:[address] [facility] - 05/24/2024 5:55 PM CDT Bill to [facility] [place] [employer] - 4529 Patient is employed by/enrolled at:->[facility] [facility] Is the patient experiencing any symptoms consistent with COVID (eg. Fever, cough, shortness of breath)?->Yes Reason for testing?->Symptomatic Is the Patient experiencing symptoms consistent with COVID?->Yes Walter Steven MD LAB MICROBIOLOGY - GENERAL OR DERABLES Final Result [facility] Jessica5 JustoAnthony Isabel Minaya [place] [address] from Last 3 Months Insurance [facility] [employer] Address: [address] [place] [address] [facility] OPEN ACCESS [facility] [employer] Address: [address] [place] [address] Advance Directives For more information, please contact: [phone] * Full Code (Latest Code Status on File) Date Activated Date Inactivated Comments 07/25/2020 9:12 PM 07/28/2020 10:07 PM Care Teams Bell Spinner Sousaphones Relationship Specialty Start Date End Date Unknown, Notinfile PCP - General 05/24/24
--- OUTSIDE RECORDS SUMMARY | 2024-08-11 00:45 | XMS_ITS | CONTINUITY OF CARE DOCUMENT ---
Author Name mack giron Address Unknown Organization [facility] Address [address] [place] [address] Phone [phone] Care Team Providers Care Psychiatric Clinician Name Role Phone Hamzah GABRIEL, Eliceo Unavailable CHELSEA HERRON MD Unavailable CHELSEA HERRON MD Unavailable [phone] INSURANCE PROVIDERS Payer name Policy type / Coverage type Miranda red republican ID [facility] [id number] Other [id number]
--- OUTSIDE RECORDS SUMMARY | 2024-08-11 00:45 | XMS_ITS | Referral Summary ---
Author Organization [facility] Address [address] [place] [id number] Care Team Providers Care Radiologic Electronic Specialist Name Role Phone Unknown, Notinfile Primary Care Provider Unavail able Encounters Date Type Department Care Team Description 06/09/2024 5:30 PM CDT Office Visit [facility] [address] [place] [phone] Raysa Kilpatrick NP Acute cough (Primary Dx); Shortness of breath; Upper respiratory symptom; Preventative health care 05/25/2024 Results Follow-Up [facility] [address] [place] [address] Room [address] (Third Floor) [place] [address] Latosha Stanley RN Influenza A/B, RSV, and COVID-19 PCR Nasopharyngeal 05/24/2024 9:52 PM CDT - 05/25/2024 12:39 AM CDT Emergency [facility] [address] [place] [address] Juan Francisco Reed MD Shortness of breath (Primary Dx); Subacute cough Discharge Disposition: Discharge to home or self care 05/24/2024 3:34 PM CDT - 05/24/2024 11:59 PM CDT Hospital Encounter [facility] [address] [place] [phone] Discharge Disposition: Discharge to home or self care 05/24/2024 10:15 AM CDT Office Visit [facility] [place] [address] [facility] [place] [phone] Cough, unspecified type 05/24/2024 Telephone [facility] [address] [facility] Room 3420 (Third Floor) [place] [address] Nahomi Grullon RN [place] Employee Screening from Last 3 Months Allergies No known active allergies Medications AMLODIPINE [...] BY MOUTH DIRECTED. Active lancets [address] 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 Gender Identity Female 07/07/2019 1:43 PM CDT Sexual Orientation Straight 07/07/2019 1: 43 PM CDT Last Filed Vital Signs Vital Sign Reading [...] 06/09/2024 5:35 PM CDT Plan of Treatment Not on file Procedures Procedure Name Priority Date/Time Associated Diagnosis [...] Community Screening-[place] Eligible (05/24/2024 10:35 PM CDT) [facility] [address] Rapid HIV, POC Negative Negative Lot Number [id number] QC Control Line Acceptable Blood 05/24/2024 10:3 5 PM CDT Vivi Ratliff MD POINT OF CARE TEST ORDERABL ES Final Result * (ABNORMAL) POCT hCG, urine (05/24/2024 10:34 PM CDT) [facility] [address] HCG, ur, POC Negative(.) Negative Lot Number [id number] QC Backgroud Clear Acceptable QC Control Line Acceptable Urine 05/24/2024 10:3 4 PM CDT Vivi Ratliff MD POINT OF CARE TEST ORDERABL ES Final Result * Troponin I high-sensitivity 2-hour (05/24/2024 10:03 PM CDT) [facility] [address] Trop I hs 12 <=17 ng/L Comment: Interpretive Data For further hscTnI resources including the diagnostic algorithm and an aid in interpretation, copy and paste this link: https://bjhlab.testcatalog.org/show/[email or web address] Current Interpretive Data last revised 2019. Trop I hs delta 2 ng/L [facility] Trop I hs interp Insignificant [facility] Blood 05/24/2024 10:0 3 PM CDT 05/24/2024 10:14 PM CDT Vivi Ratliff MD LAB BLOOD ORDERABLES Final Result Performing Organization Address [facility] de Phone Number [facility] [place] [address] * N. gonorrhoeae/C. trachomatis Amplification Urine (05/24/2024 9:54 PM CDT) Pathologist [facility] C. trachomatis Not Detected Not Detected [facility] N. gonorrhoeae Not Detected Not Detected [facility] Comment: Interpretive Data This assay detects Chlamydia trachomatis and Neisseria gonorrhoeae by nucleic acid amplification testing (NAAT). This assay has been cleared by the [place] Food and Drug administration. The performance characteristics of this test have been verified by the [facility] laboratory. The performance characteristics of this test have not been evaluated in individuals less than 14 years of age. Current Interpretive Data last revised 2023. Urine (None) 05/24/2024 9:54 PM CDT 05/24/2024 10:10 PM CDT Vivi Ratliff MD LAB MICROBIOLOGY - GENERAL ORDERABLES Final Result Performing Organization Address [facility] Co de Phone Number [facility] [place] [address] [facility] * Trichomonas vaginalis PCR Urine (05/24/2024 9:54 PM CDT) Pathologist [facility] Trichomonas DNA Not Detected Not Detected [facility] Urine 05/24/2024 9:54 PM CDT 05/24/2024 10:10 PM CDT Narrative [facility] - 05/24/2024 11:45 PM CDT Interpretive Data: This assay detects Trichomonas vaginalis by nucleic acid amplification testing (NAAT). This assay has been cleared by the [place] Food and Drug administration. The performance characteristics of this test have been verified by the [facility] laboratory. Excess blood in specimens may be inhibitory and result in false negative results. The performance of this test has not been evaluated in women or individuals less than 18 years of age. Vivi Ratliff MD LAB MICROBIOLOGY - GENERAL ORDERABLES Final Result Performing Organization Address [facility] Co de Phone Number [facility] [place] [address] [facility] * Troponin I high-sensitivity series (baseline, [...] BLOOD ORDERABLES Final Result Performing Organization Address [facility] de Phone Number [facility] Department [place] [address] * eGFR (05/24/2024 8:21 PM CDT) eGFR [...] 8:21 PM CDT 05/24/2024 8:34 PM CDT us Vivi Ratliff MD LAB BLOOD ORDERABLES Final Result [facility] Department [place] [address] * Differential, auto (05/24/2024 8:21 PM CDT) Neutrophil abs 3.3 1.5 - 6.5 K/cumm Imm gran abs 0.0 0.0 - 0.1 K/cumm [facility] Lymphocyte abs 1.5 0.8 - 3.3 K/cumm [facility] Monocyte abs 0.8 0.2 - 0.8 K/cumm [facility] Eosinophil abs 0.3 0.0 - 0.5 K/cumm [facility] Basophil abs 0.0 0.0 - 0.1 K/cumm [facility] Neutrophil pct 55.1 % [facility] Comment: Interpretive Data Percent cell count reference ranges are not reported, since discordance with absolute values may lead to misinterpretation of CBC data. Current Interpretive Data was last revised on 2017. Imm gran pct 0.2 % [facility] Comment: Interpretive Data Percent cell count reference ranges are not reported, since discordance with absolute values may lead to misinterpretation of CBC data. Current Interpretive Data was last revised on 2017. Lymphocyte pct 25.6 % [facility] Comment: Interpretive Data Percent cell count reference ranges are not reported, since discordance with absolute values may lead to misinterpretation of CBC data. Current Interpretive Data was last revised on 2017. Monocyte pct 13.2 % [facility] Comment: Interpretive Data Percent cell count reference ranges are not reported, since discordance with absolute values may lead to misinterpretation of CBC data. Current Interpretive Data was last revised on 2017. Eosinophil pct 5.2 % [facility] Comment: Interpretive Data Percent cell count reference ranges are not reported, since discordance with absolute values may lead to misinterpretation of CBC data. Current Interpretive Data was last revised on 2017. Basophil pct 0.7 % [facility] Comment: Interpretive Data Percent cell count reference ranges are not reported, since discordance with absolute values may lead to misinterpretation of CBC data. Current Interpretive Data was last revised on 2017. Blood 05/24/2024 8:21 PM CDT 05/24/2024 8:34 PM CDT Vivi Ratliff MD LAB BLOOD ORDERABLES Final Result [facility] One [facility] Department [place] [address] * (ABNORMAL) CBC with auto differential (05/24/2024 8:21 PM CDT) WBC 5.9 3.8 - 9.9 K/cumm Hgb 7.8(L) 11.9 - 15.5 g/dL [facility] Hct 27.3(L) 35.6 - 45.5 % [facility] Plt 451(H) 150 - 400 K/cumm [facility] MPV 10.5 9.1 - 12.3 fL [facility] RBC 4.23 3.90 - 5.20 M/cumm [facility] MCV 64.5(L) 81.3 - 96.4 fL [facility] MCH 18.4(L) 27.1 - 33.3 pg [facility] MCHC 28.6(L) 32.3 - 35.7 g/dL [facility] RDW CV 18.9(H) 11.1 - 14.9 % [facility] RDW SD 43.2 35.7 - 48.1 fL [facility] NRBC abs 0.00 0.00 - 0.01 K/cumm [facility] Blood 05/24/2024 8:21 PM CDT 05/24/2024 8:34 PM CDT Vivi Ratliff MD LAB BLOOD ORDERABLES Final Result [facility] One [facility] Department [place] [address] * (ABNORMAL) Comprehensive metabolic panel (05/24/2024 8:21 PM CDT) Sodium 137 135 - 145 mmol/L Potassium, pl 5.0(H) 3.3 - 4.9 mmol/L [facility] Chloride 103 97 - 110 mmol/L [facility] CO2 25 22 - 32 mmol/L [facility] Anion gap 9 2 - 15 mmol/L [facility] BUN 10 6 - 25 mg/dL [facility] Creatinine 1.11(H) 0.60 - 1.10 mg/dL [facility] Glucose 102 70 - 199 mg/dL [facility] Comment: Interpretive Data Fasting glucose >/= [...] classification and Diagnosis of Diabetes Diabetes Care 202; 46: S19-S40. Current interpretive data was last revised 2022. Calcium 8.9 8.5 - 10.3 mg/dL [facility] Bilirubin, total 0.3 0.1 - 1.2 mg/dL [facility] Protein, pl 8.5 6.5 - 8.5 g/dL [facility] Albumin 4.1 3.5 - 5.0 g/dL [facility] Alk phos 124 40 - 130 Units/L [facility] ALT 25 7 - 45 Units/L [facility] AST 41 10 - 45 Units/L [facility] Blood 05/24/2024 8:21 PM CDT 05/24/2024 8:34 PM CDT us Vivi Ratliff MD LAB BLOOD ORDERABLES Final Result [facility] One [facility] Department [place] [address] * XR Chest PA Lateral 2 Views [...] it. Electronically signed by: Fernando Whyte M.D. us Vivi Ratliff MD IMG XR PROCEDURES Final Res ult * ECG 12-LEAD (05/24/2024 7:03 PM CDT) Narrative [facility] - 05/24/2024 7:03 PM CDT Tae Cotton Jr., MD 05/24/2024 7:06 PM ECG 12 lead Date/Time: 05/24/2024 7:03 PM Performed by: Tae Cotton Jr., MD Authorized by: Nuria Powell MD Comments: EKG Interpretation Interpreted by ED physician in absence of a social worker palliative care Ventricular rate: 102 bpm Rhythm: sinus tachycardia [place]: Normal Intervals: normal Other findings: no acute [...] by ED physician in absence of a social worker palliative care Ventricular rate: 102 bpm Rhythm: sinus tachycardia [place]: Normal Intervals: normal Other findings: no acute ischemia, no ST segment elevation,TWI in III Interpretation: sinus tachycardia Compared to priors: yes, similar to 10/23/22 but with sinus tachycardia Tae Cotton Jr., MD 05/24/24 1906 Juan Francisco Reed MD ECG ORDERABLES Darlene hernandez Result [facility] * Influenza A/B, RSV, and COVID-19 PCR Nasopharyngeal (05/24/2024 5:02 PM CDT) COVID-19 RNA Negative Negative Influenza A RNA Negative Negative [facility] Influenza B RNA Negative Negative [facility] RSV RNA Negative Negative [facility] Comment: Interpretive data: Testing performed by [facility]. This test is performed using the [employer] Xpert Xpress CoV-2/Flu/RSV plus assay. This is a multiplex, real-time reverse transcriptase PCR assay intended for the qualitative detection of nucleic acid from SARS-CoV-2, influenza A, influenza B, and respiratory syncytial virus. This assay has been cleared by the [place] Food and Drug administration. The performance characteristics have been verified by the [facility]. Results must be considered in the clinical context, and a negative result does not rule out infection. Interpretive Data last revised 2023 Nasopharyngeal 05/24/2024 5: 02 PM CDT 05/24/2024 5:03 PM CDT Narrative [facility] - 05/24/2024 5:55 PM CDT Bill to [facility] [employer] - 1520 Patient is employed by/enrolled at:->[facility] [employer] Is the patient experiencing any symptoms consistent with COVID (eg. Fever, cough, shortness of breath)?->Yes Reason for testing?->Symptomatic Is the Patient experiencing symptoms consistent with COVID?->Yes Waletr Steven MD LAB MICROBIOLOGY - GENERAL OR DERABLES Final Result [facility] [address] Department [place] [address] from Last 3 Months Insurance [facility] [place] [address] [place] [address] OPEN ACCESS [facility] [employer] Advance Directives For more information, please contact: [phone] * Full Code (Latest Code Status on File) Date Activated Date Inactivated Comments 07/25/2020 9:12 PM 07/28/2020 10:07 PM Care Teams Radiologic Electronic Specialist Relationship Specialty Start Date End Date Unknown, Notinfile PCP - General 05/24/24
--- OUTSIDE RECORDS SUMMARY | 2024-08-11 00:45 | XMS_ITS | Clinical Summary ---
Author Organization [facility] Address [address] [place] [address] Care Team Providers Care Card Grader Name Role Phone Elias Hewitt DO Primary Care Provider [phone] Source Comments [facility],non-owned Affiliates and Associated Physician Practices is amultiple site organization consisting of ambulatory clinics and hospital sitesin [place], [place], [place] and [place]. This disclosure is being madepursuant to the Care Everywhere program and may not contain all information available regarding this patient. Last updated 17.[facility] Allergies No known active allergies Medications * Be aware that medications may not be up to date on this document. Alwaysverify current medications with the patient. amLODIPine (Norvasc) 5 MG tablet Take 1 (one) tablet by mouth once daily 30 tablet 1 03/23/2024 Active lisinopril-hydro CHLOROthiazide (Prinzide; Zestoretic) 20-12.5 MG tablet Take 1 (one) tablet by mouth once daily 30 tablet 1 03/23/2024 Active Active Problems Problem Noted Date Diagnosed Date Hyperprolactinemia 03/23/2024 Type 2 diabetes mellitus wit h hyperglycemia, without long-term current use of insulin 03/23/2024 S/P gastric bypass 12/02/2022 Abdominal fluid collection 04/02/2022 AMA (advanced maternal age) multigravida 35+ History of bariatric surgery 02/05/2020 Overview (02/05/2020): 12/2018 Redo of Lap sleeve gastrectomy, [place] Abnormal antibody titer 02/05/2020 Overview (02/05/2020): Labs from 01/09/20 : A+, Antibody screen Positive (Anti Grant a), Rubella-Immune, Rpr-NR, Hbsag-NR, HIV-NR H/H/P 11.5/34.4/320 TSH 3.35 HgAIC 5.4 GBS-Positive Trich,Chlam,Naveen- all negative Sickle cell trait syndrome 02/05/2020 Iron deficiency anemia 10/07/2016 Morbid obesity 02/07/2009 Hypertension 02/07/2009 Resolved Problems Problem Noted Date Diagnosed Date Resolved Date Swelling of joint of left ankle or foot 05/03/2013 02/05/2020 URI (upper respiratory infection) 05/03/2013 02/05/2020 Vitamin D deficiency 05/03/2013 020 Fall 04/20/2011 02/05/2020 Diabetes mellitus type II, uncontrolled 02/07/2009 03/30/2024 Family History Medical History Relation Name Comments Diabetes Father Type II Hypertension Father Hypertension Mother Relation Name Status Comments Father Mother Social History Tobacco Use Types Packs/Day Years Used Date Smoking Tobacco: Never Smokeless Tobacco: Never Tobacco Cessation:Counseling Given: Not Answered Alcohol Use Standard Drinks/Week Comments Not Currently 0 (1 standard drink = 0.6 oz pur e alcohol) social AUDIT-C Answer Date Recorded Q1: How often do you have a drink containing alcohol? Never 12/02/2022 Q2: How many drinks containi ng alcohol do you have on a typical day when you are drinking? Patient does not drink Q3: How often do you have si x or more drinks on one occasion? Never 12/02/2022 Overall Financial Resource Strain (CARDIA) Answe r Date Recorded How hard is it for you to pa y for the very basics like food, housing, medical care, and heating? Somewhat hard 12/03/2022 PHQ-2 Answer Date Recorded Patient Health Questionnaire-2 Score 0 03/23/2024 [facility] Occup[facility] ional [facility] - Occupational Stress Questionnaire Answer Date Recorded Do you feel stress - tense, restless, nervous, or anxious, or unable to sleep at night because your mind is troubled all the time - these days? Not at all 12/02/2022 Hunger Vital Sign Answer Date Recorded Within the past 12 months, y ou worried that your food would run out before you got the money to buy more. Sometimes true Within the past 12 months, t he food you bought just didn't last and you didn't have money to get more. Sometimes true PRAPARE - Transportation Answer Date Re corded In the past 12 months, has l ack of transportation kept you from medical appointments or from getting medications? No 11/07 In the past 12 months, has l ack of transportation kept you from meetings, work, or from getting things needed for daily living? No 12/03/2022 Housing Stability Vital Sign Answer Buck e Recorded In the last 12 months, was t here a time when you were not able to pay the mortgage or rent on time? No 12/03/2022 In the last 12 months, how many places have you lived? 1 12/03/2022 In the last 12 months, was t here a time when you did not have a steady place to sleep or slept in a halfway (including now)? 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18 09/23/2023 2:53 PM CDT Plan of Treatment Health Maintenance Due Date Last Done Comments MAMMOGRAM 1980 HIV SCREENING 09/21/1995 HEPATITIS C SCREENING 09/16/1998 DTAP/TDAP/TD VACCINES (1 - Tdap) 09/21/1999 HEPATITIS B VACCINE (1 of 3 - 19+ 3-dose series) 09/21/1999 PNEUMOCOCCAL VACCINE (1 of 2 - PCV) 09/21/1999 DIABETES RETINOPATHY SCREENING 05/03/2013 DIABETES-FOOT EXAM WITH MONOFILAMENT 05/08/2014 05/08/2013 (Previously completed) PAP SMEAR 12/06/2014 12/07/2011 (Prev iously completed) DIABETES-STATIN 2020 DIABETES-HGB A1C 05/18/2023 11/17/2022, 11/2015, 05/03/2013, Additional history exists COVID-19 VACCINE ( - season) 2023 DIABETES-SERUM CREATININE 12/20/20232022, 12/04/2022, 12/04/2022, Additional history exists DIABETES - URINE PROTEIN SCREENING 03/08/2024 05/03/2013 INFLUENZA VACCINE (Season Ended) 2024 01/24/2020, 12/29/2016 ZOSTER VACCINE (1 of 2) 2030 DEPRESSION SCREENING Completed 03/23/2024 HIB VACCINE Aged Out No longer eligi ble based on patient's age to complete this topic HPV VACCINE Aged Out No longer eligi ble based on patient's age to complete this topic MENINGOCOCCAL (Group B) VACCINE SHARED DECISION-MAKING Aged Out No longer eligible based on patient's age to complete this topic MENINGOCOCCAL GROUPS A/C/Y/W VACCINE Aged Out No longer eligible based on patient's age to complete this topic Procedures Procedure Name Priority Date/Time Associated Diagnosis Comments COMPREHENSIVE METABOLIC PANEL STAT 12/19/2022 2:15 PM CDT HEMOGLOBIN A1C STAT 11/17/2022 7:38 AM CDT Preop examination MICROALB/CREAT RATIO URINE RANDOM PANEL Routine 05/03/2013 1:21 PM FULFILLMENT MAIL CLERK Diabetes mellitus type II, controlled, with no complications from Last 3 Months or Most Recently Relevant to Health Maintenance Results * (ABNORMAL) COMPREHENSIVE METABOLIC PANEL (12/19/2022 2:15 PM CDT) [facility] Glucose 94 70 - 105 mg/dL 12/19/2022 2:51 PM CDT [facility] Sodium 140 136 - 145 mmol/L 12/19/2022 2:51 PM CDT [facility] Potassium 4.8 3.5 - 5.1 mmol/L 12/19/2022 2:51 PM CDT [facility] Comment:Specimen is Moderate ly Hemolyzed. This potassium result may be falsely elevated. Chloride 110(H) 98 - 107 mmol/L 12/19/2022 2:51 PM CDT [facility] CO2 19(L) 22 - 29 mmol/L 12/19/2022 2:51 PM CDT [facility] Calcium 9.1 8.4 - 10.4 mg/dL 12/19/2022 2:51 PM CDT [facility] Anion Gap 11 6 - 16 mmol/L 12/19/2022 2:51 PM CDT [facility] BUN 6 5.3 - 18.7 mg/dL 12/19/2022 2:51 PM CDT [facility] Creatinine 0.94 0.57 - 1.11 mg/dL 12/19/2022 2:51 PM CDT [facility] Alkaline Phosphatase 96 40 - 150 U/L 12/19/2022 2:51 PM CDT [facility] ALT 12 0 - 55 U/L 12/19/2022 2:51 PM CDT [facility] AST 34 5 - 34 U/L 12/19/2022 2:51 PM CDT [facility] Comment:Specimen is Moderate ly Hemolyzed. This AST result may be falsely elevated. Protein Total 7.6 6.4 - 8.3 gm/dL 12/19/2022 2:51 PM CDT [facility] Comment:Specimen is Moderate ly Hemolyzed. This total protein result may be falsely elevated. Albumin 3.2(L) 3.4 - 5.0 gm/dL 12/19/2022 2:51 PM CDT [facility] Bilirubin Total 0.5 0.2 - 1.2 mg/dL 12/19/2022 2:51 PM CDT [facility] eGFR by CKD-EPI 78(L) >=90 mL/min/1.7 3 m2 12/19/2022 2:51 PM CDT [facility] Blood BLOOD SPECIMEN / Unknown Venipuncture / Unknown 12/19/2022 2:15 PM CDT 12/19/2022 2:27 PM CDT Surjit Acosta MD LAB - CHEMISTRY ORDERABLES Fin al Result [facility] [address] [place] [address] * HEMOGLOBIN A1C (11/17/2022 7:38 AM CDT) Hemoglobin A1c 5.2 <5.7 % 11/17/2022 8:14 AM CDT [facility] Estimated Average Glucose 103 mg/dL 11/17/2022 8:14 AM CDT [facility] Blood BLOOD SPECIMEN / Unknown Venipuncture / Unknown 11/17/2022 7:38 AM CDT 11/17/2022 8:02 AM CDT Narrative [facility] - 11/17/2022 8:14 AM CDT HbA1c Interpretation: Normal: < 5.7% Pre-diabetes: 5.7-6.4% Diabetes: Equal to or greater than 6.5% Test results diagnostic of diabetes should be repeated for confirmation. Treatment target values recommended by ADA and other clinical organizations should be used to evaluate metabolic control in patients. This test should not replace glucose testing for patients with Type 1 diabetes, pediatric patients, or women. Falsely low HbA1c results may be observed in patients with clinical conditions that shorten erythrocyte life span or decrease mean erythrocyte age such as the presence of unstable hemoglobin variants, elevated hemoglobin F level or other causes of hemolytic anemia. HbA1c may not accurately reflect glycemic control when clinical conditions that affect erythrocyte survival are present. Severe Iron deficiency anemia may yield falsely high results. Hemoglobin A1c assay should not be used to diagnose or monitor diabetes in patients with malignancy, recent blood transfusion, chronic kidney or liver disease. This method may yield falsely low results when hemoglobin (HbF) exceeds 5% in the specimen. The Ramirez Process Control Programmer assay for the measurement of HbA1c is a National Glycohemoglobin Standardization Program (NGSP) certified method. Ld Thomson MD LAB - CHEMISTRY ORDERABLES Fi nal Result [facility] [address] [place] [address] * MICROALB/CREAT RATIO URINE RANDOM PANEL (05/03/2013 1:21 PM FULFILLMENT MAIL CLERK) Creatinine 24 Hour Urine 124.8 16.0 - 327.0 mg/dL [facility] ACCOUNT BILL Microalbumin Urine 1.9 0.0 - 17.0 ug/mL [facility] ACCOUNT BILL Microalbumin/Crea tinine Ratio 1.5 0.0 - 30.0 mg/g creat [facility] ACCOUNT BILL Urine specimen (specimen) URINE / Unknown 05/03/2013 1:21 PM FULFILLMENT MAIL CLERK 05/03/2013 10:32 PM FULFILLMENT MAIL CLERK Narrative Resulting Agency Comment [facility] [address] [place] [address] [phone] us Re Goldberg MD LAB - URINE CHEMISTRY FRANCISCO JAVIERE ED Final Result [facility] ACCOUNT BILL [address] [place] [phone] from Last 3 Months or Most Recently Relevant to Health Maintenance Additional Health Concerns Infection Onset Date 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 04/03/2022 Insurance [facility] [place] [address] [facility] [place] [address] ANTHEM Advance Directives * Full Code (Latest Code Status on File) Date Activated Date Inactivated Comments 12/02/2022 6:13 PM 12/05/2022 7:58 PM * FULL RESUSCITATION Date Activated Date Inactivated Comments 04/20/2012 3:53 PM 04/23/2012 4:15 PM * Full Code Date Activated Date Inactivated Comments 02/07/2009 8:34 PM 02/12/2009 5:23 AM Care Teams Card Grader Relationship Specialty Start Date End Date Elias Hewitt DO [address] [place] [address] [phone] PCP - General 04/14/24
--- OUTSIDE RECORDS SUMMARY | 2024-08-11 00:45 | XMS_ITS | Encounter Summary ---
Author Organization [facility] Address [address] [place] [address] Care Team Providers Care Debt Counselor Name Role Phone Re Goldberg MD Primary Care Provider [phone] Latosha Erwin PAMirzaC Primary Care Provide r Elias Hewitt DO Primary Care Provider [phone] Encounter Details Date Type Department Care Team (Late st Contact Info) Description 05/03/2013 [facility] Visit [facility]NAL [facility] Social History Tobacco Use Types Packs/Day Years Used Date Smoking Tobacco: Never Smokeless Tobacco: Never Alcohol Use Standard Drinks/Week Comments Yes 0 (1 standard drink = 0.6 oz pur e alcohol) social Comments No Sex and Gender Information Value Date Recorded Sex Assigned at Not on file 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 Gender Identity Not on file Sexual Orientation Not on file 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 Not on file Not on file Not on file documented as of this encounter Plan of Treatment Not on file documented as of this encounter Visit Diagnoses Not on filedocumented in this encounter Additional Health Concerns Infection Onset Date Last Indicated Resolved Time 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 04/03/2022 documented as of this encounter Care Teams Debt Counselor Relationship Specialty Start Date End Date Re Goldberg MD PCP - General Family Medicine 03/29/13 03/23/22 Latosha Erwin PA-C [address] [place] [phone] PCP - General 03/24/22 11/14/23 Elias Hewitt DO [address] [place] [phone] PCP - General 04/14/24 documented as of this encounter
--- OUTSIDE RECORDS SUMMARY | 2024-08-11 00:45 | XMS_ITS | Data Portability ---
Author Organization [facility] [place] [facility] Address [address] [facility] [address] Care Team Providers Care Manager Adult Name Role Phone MIKALA FLORES Primary Care Provider Assessment No assessment recorded. Plan of Treatment Reminders Order Date Submit Date Provider Last Modified By Organization Details Last Modified Time Details Appointments None recorded. Lab test, urine 2021 022 [email or web address] 1 In-Office Order, Internal Use Only DO Not Attach Compendium DO Not Attach Compendium, Do Not Delete/merge, [id number] 12:03:05 CMP, serum or plasma 2021 CHARITY THOMAS, Javed [facility], [facility] [address], [place], [address], 10:13:30 HbA1c (hemoglob in A1c), blood 2021 022 [facility]ITY [facility], [facility], [facility] [address], [place], [address], 10:13:32 lipid panel, serum 2021 022 CHARITY THOMAS, [facility], [facility] [address], [place], [address], 16:10:15 CBC w/ auto diff 2021 022 CHARITY THOMAS, [address] [facility], [address], [place], [address], 2 16:10:14 HbA1c (hemoglob in A1c), blood 2021 022 [email or web address] 1 In-Office Order, Internal Use Only DO Not Attach Compendium DO Not Attach Compendium, Do Not Delete/merge, [id number] 2 12:32:52 CMP, serum or plasma 2021 022 CHARITY [facility], [address] [facility] [address], [address], [place], [address], 16:10:15 test, urine 2021 022 [email or web address] 1 In-Office Order, Internal Use Only DO Not Attach Compendium DO Not Attach Compendium, Do Not Delete/merge, [id number] 2 12:32:52 test, urine 2020 021 [email or web address] In-Office Order, Internal Use Only DO Not Attach Compendium DO Not Attach Compendium, Do Not Delete/merge, [id number] 04:38:34 test, urine 2020 021 [email or web address] 1 In-Office Order, Internal Use Only DO Not Attach Compendium DO Not Attach Compendium, Do Not Delete/merge, [id number] 15:11:22 lipid panel, serum 2020 021 [facility], [address], [place], [address], 17:20:02 HbA1c (hemoglob in A1c), blood 2020 021 CHARITY [facility], [address], [place], [address], 15:30:48 vitamin D, 25-hydrox y, total, serum 2020 021 [facility], [address], [place], [address], 1 15:30:48 vitamin B12 + folate, serum or blood 2020 021 CHARITY [facility], [address], [place], [address], 1 15:30:48 CMP, serum or plasma 2020 021 [facility], [address], [place], [address], 2 16:24:34 iron + total iron-bind ing capacity (TIBC), serum 2020 021 CHARITYEDE Whitman, [address], [place], [address], 1 15:30:48 CBC w/ auto diff 2020 021 [facility], [address], [place], [address], 1 17:20:01 vitamin B1 (thiamine ), blood 2020 021 CHARITYEDE Whitman, [address], [place], [address], 1 15:30:49 vitamin A (retinol) , serum 2020 021 CHARITY Whitman, [address], [place], [address], 1 15:30:47 vitamin E, serum 2020 021 [facility], [address], [place], [address], 15:30:49 zinc, serum or plasma 2020 CHARITY [facility], [address], [address], [address], 15:30:49 Referral None recorded. Procedures None recorded. Surgeries None recorded. Imaging None recorded. Medication Orders amlodipin e 5 mg tablet 2021 022 [email or web address] 1 [facility] [address], [address], 2 12:03:05 lisinopri l 20 mg-hydroc hlorothia zide 12.5 mg tablet 2021 022 [email or web address] 1 [facility] [address], [address], 12:03:05 amlodipin e 5 mg tablet 2021 022 CHARITY [facility] [address], [address], 12:35:26 lisinopri l 20 mg-hydroc hlorothia zide 12.5 mg tablet 2021 022 CHARITY [facility] [address], [address], 12:35:25 Nextstell is 3 mg-14.2 mg (28) tablet 2021 022 CHARITY [facility], [address] [facility], [address], [place], [address], 11:28:54 medroxypr ogesteron e 150 mg/mL intramusc ular suspensio n 2020 [email or web address] [facility] [place], [address] [place] [address], [address], 11:44:19 medroxypr ogesteron e 150 mg/mL intramusc ular suspensio n 2020 021 [email or web address] [facility] [address] In [facility], [address] [place] [address], [address], 11:44:19 omeprazol e 20 mg capsule,d elayed release 2020 021 CHARITY [facility] In [facility], [address] [place] [address], [address], 15:23:47 Patient TargetsNo targets recorded. Patient Instructions Encounter Date Encounter Id Patient Instructions Last Modified By Organization Details Last Modified Time 07/18/2020 [id number] gastroesophageal reflux disease (GERD): care instructions Not available 07/18/2020 15:23:45 vitamin K Not available 15:30:30 04/17/2021 [id number] A healthy lifestyle: care instructions Not available 04/17/2021 12:32:52 10/23/2021 [id number] A healthy lifestyle: care instructions Not available 10/23/2021 12:03:05 diabetic eye exam* [email or web address] Not avail able 04/13/2022 09:47:43 Reason for Referral None Reported. Results Created Date Observation Date Name Description Value Unit Range Abnormal Flag Note LastModifiedBy Organization Detail LastModifiedTime 12/21/1912/20/2020 pregn renato test, urine HCG negati ve Not Available In-Office Order Internal Use Only DO Not Attach Compendium DO Not Attach Compendium, Do Not Delete/merge, [id number] 12/20/2020 10:15:46 10/05/19 21 10/04/2020 pregn renato test, urine HCG negati ve Not Available In-Office Order Internal Use Only DO Not Attach Compendium DO Not Attach Compendium, Do Not Delete/merge, [id number] 10/04/2020 10:54:10 07/17/19 21 07/16/2020 urina lysis , dipst ick Leukocytes Trace Not Available In-Offi ce Order Internal Use Only DO Not Attach Compendium DO Not Attach Compendium, Do Not Delete/merge, 07/16/2020 16:43:31 07/17/19 21 07/16/2020 urina lysis , dipst ick Nitrite negati ve Not Available In-Office Order Internal Use Only DO Not Attach Compendium DO Not Attach Compendium, Do Not Delete/merge, 07/16/2020 16:43:31 07/17/19 21 07/16/2020 urina lysis , dipst ick Urobilinogen .2 Not Available In-Of fice Order Internal Use Only DO Not Attach Compendium DO Not Attach Compendium, Do Not Delete/merge, 07/16/2020 16:43:31 07/17/19 21 07/16/2020 urina lysis , dipst ick Protein 30 Not Available In-Office Order Internal Use Only DO Not Attach Compendium DO Not Attach Compendium, Do Not Delete/merge, 07/16/2020 16:43:31 07/17/19 21 07/16/2020 urina lysis , dipst ick pH 5.5 Not Available In-Office Order Internal Use Only DO Not Attach Compendium DO Not Attach Compendium, Do Not Delete/merge, 07/16/2020 16:43:31 07/17/19 21 07/16/2020 urina lysis , dipst ick Blood Modera te Not Available In-Office Order Internal Use Only DO Not Attach Compendium DO Not Attach Compendium, Do Not Delete/merge, 07/16/2020 16:43:31 07/17/19 21 07/16/2020 urina lysis , dipst ick Specific Try[place] 1.020 Not Available In-Off ice Order Internal Use Only DO Not Attach Compendium DO Not Attach Compendium, Do Not Delete/merge, 07/16/2020 16:43:31 07/17/19 21 07/16/2020 urina lysis , dipst ick Ketone Negati ve Not Available In-Office Order Internal Use Only DO Not Attach Compendium DO Not Attach Compendium, Do Not Delete/merge, [id number] 07/16/2020 16:43:31 07/17/19 21 07/16/2020 urina lysis , dipst ick Bilirubin Negati ve Not Available In-Office Order Internal Use Only DO Not Attach Compendium DO Not Attach Compendium, Do Not Delete/merge, [id number] 07/16/2020 16:43:31 07/17/19 21 07/16/2020 urina lysis , dipst ick Glucose Negati ve Not Available In-Office Order Internal Use Only DO Not Attach Compendium DO Not Attach Compendium, Do Not Delete/merge, [id number] 07/16/2020 16:43:31 07/17/19 21 07/16/2020 pregn renato test, urine HCG negati ve Not Available In-Office Order Internal Use Only DO Not Attach Compendium DO Not Attach Compendium, Do Not Delete/merge, [id number] 07/16/2020 16:43:14 07/17/19 21 07/19/2020 bacte rial vagin osis panel , vagin al atopobium vaginae Low - 0 score Not Available [facility] [address] [place], [address], 07/22/2020 03:06:04 07/17/19 21 07/19/2020 bacte rial vagin osis panel , vagin al bvab 2 Low - 0 score Not Available [facility] [address] [place], [address], 07/22/2020 03:06:04 07/17/19 21 07/19/2020 bacte rial vagin osis panel , vagin al megasphaera 1 Low - 0 score Calcu late total score by yair guardado the 3 indiv idual bacte rial vagin osis (BV) marke r score s toget her. Total score is inter prete d as follo ws: Total score 0-1: Indic ates the absen ce of BV. Total score 2: Indet ermin ate for BV. Addit ional clini eufemia data shoul d be evalu ated to estab hetal a diagn osis. Total score 3-6: Indic ates the prese nce of BV. This test was devel juan migueled and its perfo rmanc e eliane cteri stics deter mined by [facility]. It has not been clear ed or appro caitlin by the Food and Drug Admin istra tion. Not Available [facility] [address] [place], [address], 07/22/2020 03:06:04 07/17/19 21 07/19/2020 bacte rial vagin osis panel , vagin al lopez albicans, SILVIA Negati ve negati ve Not Available [facility] [address] [place], [address], 07/22/2020 03:06:04 07/17/1907/19/2020 bacte rial vagin osis panel , vagin al lopez glabrata, SILVIA Negati ve negati ve Not Available [facility] [address] [place], [address], 07/22/2020 03:06:04 07/17/1907/19/2020 bacte rial vagin osis panel , vagin al trich vag by SILVIA Negati ve negati ve Not Available [facility] [address] [place], [address], 07/22/2020 03:06:04 07/17/1907/19/2020 bacte rial vagin osis panel , vagin al chlamydia trachomatis, SILVIA Negati ve negati ve Not Available [facility] [address] [place], [address], 07/22/2020 03:06:04 07/17/1907/19/2020 bacte rial vagin osis panel , vagin al neisseria gonorrhoeae, SILVIA Negati ve negati ve Not Available [facility] [address] [place], [address], 07/22/2020 03:06:04 07/17/19 21 07/21/2020 bacte rial vagin osis panel , vagin al hsv 1 SILVIA Negati ve negati ve Not Available [facility] [address] [place], [address], 07/22/2020 03:06:04 07/17/19 21 07/21/2020 bacte rial vagin osis panel , vagin al hsv 2 SILVIA Negati ve negati ve Not Available [facility] [address] [facility], [place], [address], 07/22/2020 03:06:04 07/17/19 21 07/18/2020 cultu re, vagin al/re ctal, strep tococ cus group B strep gp B SILVIA Negati ve negati ve Cente rs for Disea se Contr ol and Preve ntion (CDC) and Ameri can Congr ess of Obste trici ans and Gynec ologi sts (ACOG ) guide lines for preve ntion of perin atal group B strep tococ eufemia (GBS) disea se speci fy co-co llect ion of a vagin al and recta l swab speci men to maxim ize sensi tivit y of GBS detec tion. Per the CDC and ACOG, swabb ing both the lower vagin a and rectu m subst antia lly incre ases the yield of detec tion jarek red with sampl ing the vagin a alone . Penic illin G, ampic illin , or cefaz brandy are indic ated for intra partu m proph ylaxi s of perin atal GBS colon izati on. Refle x susce ptibi lity testi ng shoul d be perfo rmed prior to use of clind amyci n only on GBS isola jaron from penic illin -james rgic women who are consi dered a high risk for anaph ylaxi s. Treat ment with vanco mycin witho ut addit ional testi ng is bonita nted if resis tance to clind amyamadou n is noted . Not Available [facility] [address] [facility], [place], [address], 07/22/2020 03:06:06 04/17/19 22 04/18/2021 CBC WITH DIFFE RENTI AL/PL ATELE T WBC 4.1 x10e3 /uL 3.4-10 .8 Not Available [facility] [address] [place], [address], 04/19/2021 16:10:14 04/17/19 22 04/18/2021 CBC WITH DIFFE RENTI AL/PL ATELE T RBC 4.29 x10e6 /uL 3.77-5 .28 Not Available [facility] [address] [place], [address], 04/19/2021 16:10:14 04/17/19 22 04/18/2021 CBC WITH DIFFE RENTI AL/PL ATELE T hemoglobin 11.9 g/dL 11.1-1 5.9 Not Available [facility] [address] [place], [address], 04/19/2021 16:10:14 04/17/19 22 04/18/2021 CBC WITH DIFFE RENTI AL/PL ATELE T hematocrit 38.1 % 34.0-4 6.6 Not Available [facility] [address] [place], [address], 04/19/2021 16:10:14 04/17/19 22 04/18/2021 CBC WITH DIFFE RENTI AL/PL ATELE T MCV 89 fL 79-97 Not Available [facility] [address] [place], [address], 04/19/2021 16:10:14 04/17/19 22 04/18/2021 CBC WITH DIFFE RENTI AL/PL ATELE T MCH 27.7 pg 26.6-3 3.0 Not Available [facility] [address] [place], [address], 04/19/2021 16:10:14 04/17/19 22 04/18/2021 CBC WITH DIFFE RENTI AL/PL ATELE T MCHC 31.2 g/dL 31.5-3 5.7 below low normal Not Available [facility] [address] [place], [address], 04/19/2021 16:10:14 04/17/19 22 04/18/2021 CBC WITH DIFFE RENTI AL/PL ATELE T RDW 12.4 % 11.7-1 5.4 Not Available [facility] [address] [place], [address], 04/19/2021 16:10:14 04/17/19 22 04/18/2021 CBC WITH DIFFE RENTI AL/PL ATELE T platelets 301 x10e3 /uL 150-45 0 Not Available [facility] [address] [place], [address], 04/19/2021 16:10:14 04/17/19 22 04/18/2021 CBC WITH DIFFE RENTI AL/PL ATELE T neutrophils 52 % not estab. Not Available [facility] [address] [place], [address], 04/19/2021 16:10:14 04/17/19 22 04/18/2021 CBC WITH DIFFE RENTI AL/PL ATELE T lymphs 34 % not estab. Not Available [facility] [address] [place], [address], 04/19/2021 16:10:14 04/17/19 22 04/18/2021 CBC WITH DIFFE RENTI AL/PL ATELE T monocytes 9 % not estab. Not Available [facility] [address] [place], [address], 04/19/2021 16:10:14 04/17/19 22 04/18/2021 CBC WITH DIFFE RENTI AL/PL ATELE T eos 4 % not estab. Not Available [facility] [address] [place], [address], 04/19/2021 16:10:14 04/17/19 22 04/18/2021 CBC WITH DIFFE RENTI AL/PL ATELE T basos 1 % not estab. Not Available [facility] [address] [facility], [place], [address], 04/19/2021 16:10:14 04/17/19 22 04/18/2021 CBC WITH DIFFE RENTI AL/PL ATELE T immature cells [employer]ER Not Available [facility] [address] [place], [address], 04/19/2021 16:10:14 04/17/19 22 04/18/2021 CBC WITH DIFFE RENTI AL/PL ATELE T neutrophils (absolute) 2.2 x10e3 /uL 1.4-7. 0 Not Available [facility] [address] [place], [address], 04/19/2021 16:10:14 04/17/19 22 04/18/2021 CBC WITH DIFFE RENTI AL/PL ATELE T lymphs (absolute) 1.4 x10e3 /uL 0.7-3. 1 Not Available [facility] [address] [place], [address], 04/19/2021 16:10:14 04/17/19 22 04/18/2021 CBC WITH DIFFE RENTI AL/PL ATELE T monocytes(ab solute) 0.4 x10e3 /uL 0.1-0. 9 Not Available [facility] [address] [facility], [place], [address], 04/19/2021 16:10:14 04/17/19 22 04/18/2021 CBC WITH DIFFE RENTI AL/PL ATELE T eos (absolute) 0.2 x10e3 /uL 0.0-0. 4 Not Available [facility] [address] [facility], [place], [address], 04/19/2021 16:10:14 04/17/19 22 04/18/2021 CBC WITH DIFFE RENTI AL/PL ATELE T baso (absolute) 0.0 x10e3 /uL 0.0-0. 2 Not Available [facility] [address] [facility], [place], [address], 04/19/2021 16:10:14 04/17/19 22 04/18/2021 CBC WITH DIFFE RENTI AL/PL ATELE T immature granulocytes 0 % not estab. Not Available [facility] [address] [facility], [place], [address], 04/19/2021 16:10:14 04/17/19 22 04/18/2021 CBC WITH DIFFE RENTI AL/PL ATELE T immature grans (abs) 0.0 x10e3 /uL 0.0-0. 1 Not Available [facility] [address] [facility], [place], [address], 04/19/2021 16:10:14 04/17/19 22 04/18/2021 CBC WITH DIFFE RENTI AL/PL ATELE T NRBC [employer] Not Available [facility] [address] [facility], [place], [address], 04/19/2021 16:10:14 04/17/19 22 04/18/2021 CBC WITH DIFFE RENTI AL/PL ATELE T hematology comments: [employer]ER Not Available [facility] [address] [facility], [place], [address], 04/19/2021 16:10:14 04/17/19 22 04/18/2021 CMP14 +4AC glucose 75 mg/dL 65-99 Not Available [facility] [address] [place], [address], 04/19/2021 16:10:14 04/17/19 22 04/18/2021 CMP14 +4AC BUN 6 mg/dL 6-24 Not Available [facility] [address] [place], [address], 04/19/2021 16:10:14 04/17/19 22 04/18/2021 CMP14 +4AC creatinine 1.16 mg/dL 0.57-1 .00 above high normal Not Available [facility] [address] [facility], [place], [address], 04/19/2021 16:10:14 04/17/19 22 04/18/2021 CMP14 +4AC eGFR if nonafricn AM 59 mL/mi n/1.7 3 >59 below low normal Not Available [facility] [address] [place], [address], 04/19/2021 16:10:14 04/17/19 22 04/18/2021 CMP14 +4AC eGFR if africn AM 68 mL/mi n/1.7 3 >59 In accor dance with recom menda tions from the NKF-A SN Task force , [facility] is in the proce ss of updat ing its eGFR calcu latio n to the 2020 CKD-E PI creat inine equat ion that estim ates kidne y funct ion witho ut a race varia ble. Not Available [facility] [address] [place], [address], 04/19/2021 16:10:14 04/17/19 22 04/18/2021 CMP14 +4AC sodium 142 mmol/ L 134-14 4 Not Available [facility] [address] [place], [address], 04/19/2021 16:10:14 04/17/19 22 04/18/2021 CMP14 +4AC potassium 4.5 mmol/ L 3.5-5. 2 Not Available [facility] [address] [place], [address], 04/19/2021 16:10:14 04/17/19 22 04/18/2021 CMP14 +4AC chloride 108 mmol/ L 96-106 above high normal Not Available [facility] [address] [place], [address], 04/19/2021 16:10:14 04/17/19 22 04/18/2021 CMP14 +4AC carbon dioxide, total 19 mmol/ L 20-29 below low normal Not Available [facility] [address] [place], [address], 04/19/2021 16:10:14 04/17/19 22 04/18/2021 CMP14 +4AC calcium 9.3 mg/dL 8.7-10 .2 Not Available [facility] [address] [place], [address], 04/19/2021 16:10:14 04/17/19 22 04/18/2021 CMP14 +4AC phosphorus 3.5 mg/dL 3.0-4. 3 Not Available [facility] [address] [place], [address], 04/19/2021 16:10:14 04/17/19 22 04/18/2021 CMP14 +4AC protein, total 7.0 g/dL 6.0-8. 5 Not Available [facility] [address] [facility] [place], [address], 04/19/2021 16:10:14 04/17/19 22 04/18/2021 CMP14 +4AC albumin 4.0 g/dL 3.8-4. 8 Not Available [facility] [address] [facility] [place], [address], 04/19/2021 16:10:14 04/17/19 22 04/18/2021 CMP14 +4AC bilirubin, total 0.5 mg/dL 0.0-1. 2 Not Available [facility] [address] [facility] [place], [address], 04/19/2021 16:10:14 04/17/19 22 04/18/2021 CMP14 +4AC alkaline phosphatase 108 IU/L 44-121 Not Available [facility] [address] [facility] [place], [address], 04/19/2021 16:10:14 04/17/19 22 04/18/2021 CMP14 +4AC LDH 226 IU/L 119-22 6 Not Available [facility] [address] [facility] [place], [address], 04/19/2021 16:10:14 04/17/19 22 04/18/2021 CMP14 +4AC AST (SGOT) 23 IU/L 0-40 Not Available [facility] [address] [facility] [place], [address], 04/19/2021 16:10:14 04/17/19 22 04/18/2021 CMP14 +4AC ALT (SGPT) 28 IU/L 0-32 Not Available [facility] [address] [facility] [place], [address], 04/19/2021 16:10:14 02/10/20 22 04/18/2021 CMP14 +4AC GGT 34 IU/L 0-60 Not Available [facility] [address] [place], [address], 04/19/2021 16:10:14 04/17/19 22 04/18/2021 CMP14 +4AC cholesterol, total 131 mg/dL 100-19 9 Not Available [facility] [address] [place], [address], 04/19/2021 16:10:14 04/17/19 22 04/18/2021 LIPID CASCA DE HDL cholesterol 45 mg/dL >39 Not Available [facility] [address] [place], [address], 04/19/2021 16:10:15 04/17/19 22 04/18/2021 LIPID CASCA DE LDL/HDL ratio 1.6 ratio 0.0-3. 2 LDL/H DL Ratio Men Women 1/2 Avg.R isk 1.0 1.5 Avg.R isk 3.6 3.2 2X Avg.R isk 6.2 5.0 3X Avg.R isk 8.0 6.1 Not Available [facility] [address] [place], [address], 04/19/2021 16:10:15 04/17/19 22 04/18/2021 LIPID CASCA DE non-HDL cholesterol 86 mg/dL 0-129 Not Available [facility] [address] [place], [address], 04/19/2021 16:10:15 04/17/19 22 04/18/2021 LIPID CASCA DE triglyceride s 74 mg/dL 0-149 Not Available [facility] [address] [place], [address], 04/19/2021 16:10:15 04/17/19 22 04/18/2021 LIPID CASCA DE LDL chol calc (nih) 71 mg/dL 0-99 Not Available [facility] [address] [facility], [place], [address], 04/19/2021 16:10:15 04/17/19 22 04/18/2021 LIPID CASCA DE comment: [employer]ER Not Available [facility] [address] [facility], [place], [address], 04/19/2021 16:10:15 04/17/19 22 04/19/2021 LIPID CASCA DE LDL-P 799 nmol/ L <1000 Low < 1000 Moder ate 1000 - 1299 Borde rline -High 1300 - 1599 High 1600 - 2000 Very High > 2000 Not Available [facility] [address] [facility], [place], [address], 04/19/2021 16:10:15 04/17/19 22 04/19/2021 LIPID CASCA DE HDL-P (total) 25.1 umol/ L >=30.5 below low normal Not Available [facility] [address] [facility], [place], [address], 04/19/2021 16:10:15 04/17/19 22 04/19/2021 LIPID CASCA DE small LDL-P 195 nmol/ L <=527 Not Available [facility] [address] [place], [address], 04/19/2021 16:10:15 04/17/19 22 04/19/2021 LIPID CASCA DE LDL size 21.4 nm >20.5 ----- ----- ----- ----- ----- ----- ----- ----- ----- ----- ----- --- INTER PRETA TIVE INFOR JUDITH N PARTI HEMANT OTONIEL NTRAT ION AND SIZE <--Lo wer CVD Risk Highe r CVD Risk- -> LDL AND HDL PARTI CLES Perce ntile in Refer ence Popul ation HDL-P (tota l) High 75th 50th 25th Low >34.9 34.9 30.5 26.7 <26.7 Small LDL-P Low 25th 50th 75th High <117 117 527 839 >839 LDL Size <-Lar ge (Abigail jace A)-> <-Sma ll (Abigail jace B)-> 23.0 20.6 20.5 19.0 ----- ----- ----- ----- ----- ----- ----- ----- ----- ----- ----- --- Small LDL-P and LDL Size are assoc iated with CVD risk, but not after LDL-P is taken into accou nt. Not Available [facility] [address] [facility], [place], [address], 04/19/2021 16:10:15 04/17/19 22 04/19/2021 LIPID CASCA DE LP-IR score 34 <=45 INSUL IN RESIS TANCE MARKE R <--In sulin Sensi tive Insul in Resis tant- -> Perce ntile in Refer ence Popul ation Insul in Resis tance Score LP-IR Score Low 25th 50th 75th High <27 27 45 63 >63 LP-IR Score is inacc urate if patie nt is non-f astin g. The LP-IR score is a labor atory devel oped index that has been assoc iated with insul in resis tance and diabe jaron risk and shoul d be used as one compo nent of a physi yasmine' s clini eufemia asses sment . Not Available [facility] [address] [facility], [place], [address], 04/19/2021 16:10:15 04/17/19 22 04/19/2021 LITHO LINK CKD PROGR AM interpretati on NOTE ----- ----- ----- ----- ----- ----- - CHRON IC KIDNE Y DISEA SE: EGFR, BLOOD PRESS URE, AND PROTE INURI A ASSES SMENT We presu me eGFR has been less than 60 mL/mi n/1.7 3mE2 on at least two occas ions space d at least 3 month s apart . Curre nt eGFR is 59 mL/mi n/1.7 3mE2 corre spond ing to CKD stage 3a. Multi ply eGFR by 1.159 if patie nt is [place] an Ameri can. Potas sium is withi n goal, 4.5 mmol/ L. EGFR, BLOOD PRESS URE, AND PROTE INURI A TREAT MENT LINNEA REILLY S - Guide lines recom mend a targe t blood press ure of 120/8 0 mmHg or less in CKD patie nts to reduc e cardi ovasc ular risk and CKD progr essio n. Asses sment of album inuri a (urin e album in:cr eatin ine ratio or urine prote in:cr eatin ine ratio prefe rred) is recom kaylin d at least annua lly in CKD patie nts for stagi ng and disea se progn osis. EGFR, BLOOD PRESS URE, AND PROTE INURI A FOLLO W-UP - Spot Urine Panel is recom kaylin d by KDOQI guide lines , at least yearl y; fasti ng Renal Panel withi n 3 month s; BONE and PLASTIC INSTALLER AL ASSES SMENT Phosp horus is withi n goal, 3.5 mg/dL . Calci um is withi n goal, 9.3 mg/dL . Carbo n Dioxi de is below goal, 19 mmol/ L. Guide lines recom mend the measu remen t of 25-hy droxy vitam in D in patie nts with CKD. BONE and PLASTIC INSTALLER AL TREAT MENT LINNEA REILLY S - If not on alkal i, begin sodiu m bicar bonat e, one 650 mg pill 2-3 times daily , other leyva incre ase dose. BONE and PLASTIC INSTALLER AL FOLLO W-UP - fasti ng Renal Panel withi n 3 month s; fasti ng PTH with Renal Panel and 25-Hy droxy Vitam in D are recom kaylin d by KDOQI guide lines , at least yearl y; LIPID S ASSES SMENT Blood was non-f astin g; inter pret these resul ts with cauti on. LDL-C is jessica l, 71 mg/dL . Trigl yceri de is jessica l, 74 mg/dL . Non-H DL Suzanne stero l is optim al, 86 mg/dL . HDL-C is jessica l, 45 mg/dL . LDL-P is optim al, 799 nmol/ L. LIPID S TREAT MENT LINNEA REILLY S - Thera peuti c lifes tyle gallegos es are alway s valua ble to maint ain optim al blood lipid statu s (diet , exerc ise, weigh t manag ement ). When LDL-C and LDL-P are disco rdant cardi ovasc ular risk track s with LDL-P . Kayla nuing prese nt treat ment is a reaso nable optio n. If at least a 50% LDL reduc tion from banner ine has not been achie caitlin, begin or incre ase stati n. If stati n canno t be martínez ated or incre ased, alter nativ es inclu de use of an intes tinal agent (ezet imibe or bile acid seque stran t) or niaci n. LIPID S FOLLO W-UP - fasti ng Lipid Panel withi n 12 month s; ANEMI A ASSES SMENT Hemog lobin is low, 11.9 g/dL. Hemog lobin targe t assum es TEQUILA is not in use. ANEMI A TREAT MENT LINNEA REILLY S - Iron defic iency is a commo n cause of anemi a in CKD. Recom mend measu remen t of Sanjana tin and TSAT. ANEMI A FOLLO W-UP - CBC withi n 3 month s; Fe/TI BC (TSAT ) and Sanjana tin with CBC is due; ----- ----- ----- ----- ----- ----- - DISCL AIMER These asses sment s and treat ment linnea reilly s are provi ded as a conve nienc e in suppo rt of the physi yasmine- patie nt relat ionsh ip and are not inten ded to repla ce the physi yasmine' s clini eufemia judgm ent. They are deriv ed from natio nal guide lines in addit ion to other evide nce and exper t opini on. The clini yasmine allan d consi keiry this infor judith chino n the rachael xt of clini eufemia opini on and the indiv idual patie nt. SEE YUSEF NCE FOR CHRON IC KIDNE Y DISEA SE PROGR AM: Kidne y Disea se Impro ving Globa l Outco mes (KDIG O) clini eufemia pract ice guide lines are at http: //kdi go.or g/maggie e/kathy hernandez es/. Natio nal Kidne y Found ation Kidne y Disea se Outco mes Quali ty Initi ative (KDOQ I (TM)) , with its limit ation s and discl aimer s, are at www.[employer] .org/ profandrzej edenon als/K DOQI. This progr am is inten ded for patie nts who have been diagn osed with stage s 3, 4, or pre-d ialys is 5 CKD. It is not inten ded for child julissa, pregn ant patie nts, or trans plant patie nts. Not Available [facility] ([facility]) [address] [facility], [place], [address], 04/19/2021 16:10:16 04/17/19 22 04/19/2021 LITHO LINK CKD PROGR AM pdf . Not Available [facility] ([facility]) [address] [facility], [place], [address], 04/19/2021 16:10:16 04/17/19 22 04/19/2021 DIABE JARON PATIE NT EDUCA TION pdf NOT APPLIC ABLE Not Available [facility] ([facility]) [address] [facility], [place], [address], 04/19/2021 16:10:16 04/17/19 22 04/17/2021 HbA1c (hemo globi n A1c), blood HbA1c 5.0 % Not Available In-Office Order Internal Use Only DO Not Attach Compendium DO Not Attach Compendium, Do Not Delete/merge, [id number] 04/17/2021 12:29:29 04/17/19 22 04/17/2021 pregn renato test, urine HCG negati ve Not Available In-Office Order Internal Use Only DO Not Attach Compendium DO Not Attach Compendium, Do Not Delete/merge, [id number] 04/17/2021 12:27:36 10/24/19 22 10/24/2021 COMP. METAB OLIC PANEL (14) glucose 91 mg/dL 65-99 Not Available [facility] ([facility]) [address] [place], [address], 10/24/2021 10:13:30 10/24/19 22 10/24/2021 COMP. METAB OLIC PANEL (14) BUN 10 mg/dL 6-24 Not Available [facility] ([facility] [address] [place], [address], 10/24/2021 10:13:30 10/24/19 22 10/24/2021 COMP. METAB OLIC PANEL (14) creatinine 1.17 mg/dL 0.57-1 .00 above high normal Not Available [facility] ([facility] [address] [place], [address], 10/24/2021 10:13:30 10/24/19 22 10/24/2021 COMP. METAB OLIC PANEL (14) eGFR 60 mL/mi n/1.7 3 >59 Not Available [facility] ([facility] [address] [place], [address], 10/24/2021 10:13:30 10/24/19 22 10/24/2021 COMP. METAB OLIC PANEL (14) BUN/creatini ne ratio 9 9-23 Not Available [facility] ([facility] [address] [place], [address], 10/24/2021 10:13:30 10/24/19 22 10/24/2021 COMP. METAB OLIC PANEL (14) sodium 141 mmol/ L 134-14 4 Not Available [facility] ([facility] [address] [facility] [place], [address], 10/24/2021 10:13:30 10/24/19 22 10/24/2021 COMP. METAB OLIC PANEL (14) potassium 4.2 mmol/ L 3.5-5. 2 Not Available [facility] ([facility] [address] [facility] [place], [address], 10/24/2021 10:13:30 10/24/19 22 10/24/2021 COMP. METAB OLIC PANEL (14) chloride 104 mmol/ L 96-106 Not Available [facility] ([facility]) [address] [facility] [place], [address], 10/24/2021 10:13:30 10/24/19 22 10/24/2021 COMP. METAB OLIC PANEL (14) carbon dioxide, total 22 mmol/ L 20-29 Not Available [facility] ([facility] [address] [facility] [place], [address], 10/24/2021 10:13:30 10/24/19 22 10/24/2021 COMP. METAB OLIC PANEL (14) calcium 9.4 mg/dL 8.7-10 .2 Not Available [facility] ([facility]) [address] [facility] [place], [address], 10/24/2021 10:13:30 10/24/19 22 10/24/2021 COMP. METAB OLIC PANEL (14) protein, total 6.9 g/dL 6.0-8. 5 Not Available [facility] ([facility]) [address] [facility] [place], [address], 10/24/2021 10:13:30 10/24/19 22 10/24/2021 COMP. METAB OLIC PANEL (14) albumin 4.1 g/dL 3.8-4. 8 Not Available [facility] ([facility]) [address] [facility] [place], [address], 10/24/2021 10:13:30 10/24/19 22 10/24/2021 COMP. METAB OLIC PANEL (14) globulin, total 2.8 g/dL 1.5-4. 5 Not Available [facility] ([facility]) [address] [facility], [place], [address], 10/24/2021 10:13:30 10/24/19 22 10/24/2021 COMP. METAB OLIC PANEL (14) A/G ratio 1.5 1.2-2. 2 Not Available [facility] ([facility]) [address] [facility], [place], [address], 10/24/2021 10:13:30 10/24/19 22 10/24/2021 COMP. METAB OLIC PANEL (14) bilirubin, total 0.6 mg/dL 0.0-1. 2 Not Available [facility] ([facility]) [address] [facility], [place], [address], 10/24/2021 10:13:30 10/24/19 22 10/24/2021 COMP. METAB OLIC PANEL (14) alkaline phosphatase 109 IU/L 44-121 Not Available [facility] [address] [facility], [place], [address], 10/24/2021 10:13:30 10/24/19 22 10/24/2021 COMP. METAB OLIC PANEL (14) AST (SGOT) 31 IU/L 0-40 Not Available [facility] ([facility]) [address] [facility], [place], [address], 10/24/2021 10:13:30 10/24/19 22 10/24/2021 COMP. METAB OLIC PANEL (14) ALT (SGPT) 23 IU/L 0-32 Not Available [facility] ([facility]) [address] [facility], [place], [address], 10/24/2021 10:13:30 10/24/19 22 10/24/2021 HEMOG LOBIN A1C hemoglobin A1C 5.4 % 4.8-5. 6 Predi abete s: 5.7 - 6.4 Diabe jaron: >6.4 Glyce asha contr ol for adult s with diabe jaron: <7.0 Not Available [facility] ([facility]) [address] [facility], [place], [address], 10/24/2021 10:13:32 10/24/19 22 10/24/2021 DIABE JARON PATIE NT EDUCA TION pdf . Not Available [facility] ([facility]) [address] [facility], [place], [address], 10/24/2021 10:13:33 10/24/19 22 10/23/2021 pregn renato test, urine HCG negati ve Not Available In-Office Order Internal Use Only DO Not Attach Compendium DO Not Attach Compendium, Do Not Delete/merge, [id number] 10/23/2021 11:51:02 11/18/1911/17/2022 Hemog lobin A1c/H emogl obin. total in Blood hemoglobin A1C/hemoglob in.total in blood 5.2 % high: 5.7% Hemog lobin A1c 5.2 <5.7 % 11/17 8:14 AM CDT [facility] Not Available Not Available 04/25/2024 02:52:52 11/18/1911/17/2022 Hemog lobin A1c/H emogl obin. total in Blood glucose mean value [mass/volume ] in blood estimated from glycated hemoglobin 103 mg/dL Estim ated [place] ge Gluco se 103 mg/dL 11/17 8:14 AM CDT [facility] Not Available Not Available 04/25/2024 02:52:52 11/18/1911/17/2022 Hemog lobin A1c/H emogl obin. total in Blood Unknown Analyte HbA1c Interp retati on: Normal : < 5.7% Pre-di abetes : 5.7-6. 4% Diabet es: Equal to or greate r than 6.5% Test result s diagno stic of diabet es should be repeat ed for confir mation . Treatm ent target values recomm ended by ADA and other clinic al organi zation s should be used to evalua te metabo lic contro l in patien ts. This test should not replac e glucos e testin g for patien ts with Type 1 diabet es, pediat lucie patien ts, or pregna nt women. Falsel y low HbA1c result s may be observ ed in patien ts with clinic al condit ions that shorte n erythr ocyte life span or decrea se mean erythr ocyte age such as the presen ce of unstab le hemogl obin varian ts, elevat ed hemogl obin F level or other causes of hemoly tic anemia . HbA1c may not accura tely reflec t glycem ic contro l when clinic al condit ions that affect erythr ocyte surviv al are presen t. Severe Iron defici ency anemia may yield falsel y high result s. Hemogl obin A1c assay should not be used to diagno se or monito r diabet es in patien ts with malign renato, recent blood transf usion, chroni c kidney or liver diseas e. This method may yield falsel y low result s when hemogl obin (HbF) exceed s 5% in the specim en. The Spot Runner Lobito ect assay for the measur ement of HbA1c is a Nation al Glycoh emoglo bin Standa rdizat ion Progra m (NGSP) certif ied method . HbA1c Inter preta tion: Jessica l: < 5.7% Pre-d iabet es: 5.7-6 .4% Diabe jaron: Equal to or great er than 6.5% Test resul ts diagn ostic of diabe jaron shoul d be repea terra for confi rmati on. Treat ment targe t value s recom kaylin d by ADA and other clini eufemia organ izati ons shoul d be used to evalu ate metab olic contr ol in patie nts. This test shoul d not repla ce gluco se testi ng for patie nts with Type 1 diabe jaron, pedia tric patie nts, or pregn ant women . False ly low HbA1c resul ts may be obser caitlin in patie nts with clini eufemia condi tions that short en eryth rocyt e life span or decre ase mean eryth rocyt e age such as the prese nce of unsta ble hemog lobin varia nts, eleva terra hemog lobin F level or other cause s of hemol ytic anemi a. HbA1c may not accur ately refle ct glyce asha contr ol when clini eufemia condi tions that affec t eryth rocyt e survi syd are prese nt. Sever e Iron defic iency anemi a may yield false ly high resul ts. Hemog lobin A1c assay shoul d not be used to diagn ose or monit or diabe jaron in patie nts with malig alena , recen t blood trans fusio n, chron ic kidne y or liver disea se. This metho d may yield false ly low resul ts when hemog lobin (HbF) excee ds 5% in the speci men. The Abbot t Archi tect assay for the measu remen t of HbA1c is a Natio nal Glyco hemog lobin Stand ardiz ation Progr am (NGSP ) certi fied metho d. Not Available Not Available 04/25/2024 02:52:52 12/20/1912/19/2022 Compr ehens sushila metab olic 1999 panel - Serum or Plasm a glucose [mass/volume ] in serum or plasma 94 mg/dL low: 70mg/d Lhigh: 105mg/ dL Gluco se 94 70 - 105 mg/dL 12/19 2:51 PM CDT [facility] Not Available Not Available 04/25/2024 02:52:52 12/20/1912/19/2022 Compr ehens sushila metab olic 1999 panel - Serum or Plasm a sodium [moles/volum e] in serum or plasma 140 mmol/ L low: 136mmo l/Lhig h: 145mmo l/L Sodiu m 140 136 - 145 mmol/ L 12/19 2:51 PM CDT [facility] Not Available Not Available 04/25/2024 02:52:52 12/20/19 23 12/19/2022 Compr ehens sushila metab olic 2000 panel - Serum or Plasm a potassium [moles/volum e] in serum or plasma 4.8 mmol/ L low: 3.5mmo l/Lhig h: 5.1mmo l/L Potas sium 4.8 3.5 - 5.1 mmol/ L 12/19 2:51 PM CDT [facility] Not Available Not Available 04/25/2024 02:52:52 12/20/1912/19/2022 Compr ens sushila metab ic 1999 panel - Serum or Plasm a chloride [moles/volum e] in serum or plasma 110 mmol/ L low: 98mmol /Lhigh : 107mmo l/L high Chlor ector 110 (H) 98 - 107 mmol/ L 12/19 2:51 PM CDT [facility] Not Available Not Available 04/25/2024 02:52:52 12/20/1912/19/2022 Compr ens sushila metab [facility] 1999 panel - Serum or Plasm a carbon dioxide, total [moles/volum e] in serum or plasma 19 mmol/ L low: 22mmol /Lhigh : 29mmol /L low CO2 19 (L) 22 - 29 mmol/ L 12/19 2:51 PM CDT [facility] Not Available Not Available 04/25/2024 02:52:52 12/20/1912/19/2022 [facility] sushila metab [facility] 1999 panel - Serum or Plasm a calcium [mass/volume ] in serum or plasma 9.1 mg/dL low: 8.4mg/ dLhigh : 10.4mg /dL Calci um 9.1 8.4 - 10.4 mg/dL 12/19 2:51 PM CDT [facility] Not Available Not Available 04/25/2024 02:52:52 12/20/1912/19/2022 Compr ens sushila metab [facility] 1999 panel - Serum or Plasm a anion gap in blood 11 mmol/ L low: 6mmol/ Lhigh: 16mmol /L Anion Gap 11 6 - 16 mmol/ L 12/19 2:51 PM CDT [facility] Not Available Not Available 04/25/2024 02:52:52 12/20/1912/19/2022 [facility] [employer] sushila metab [facility] 1999 panel - Serum or Plasm a urea nitrogen [mass/volume ] in serum or plasma 6 mg/dL low: 5.3mg/ dLhigh : 18.7mg /dL BUN 6 5.3 - 18.7 mg/dL 12/19 2:51 PM CDT [facility] Not Available Not Available 04/25/2024 02:52:52 12/20/1912/19/2022 Compr [employer] sushila metab [facility] 1999 panel - Serum or Plasm a creatinine [mass/volume ] in serum or plasma 0.94 mg/dL low: 0.57mg /dLhig h: 1.11mg /dL Creat inine 0.94 0.57 - 1.11 mg/dL 12/19 2:51 PM CDT [facility] Not Available Not Available 04/25/2024 02:52:52 12/20/1912/19/2022 Compr ens sushila metab [facility] 1999 panel - Serum or Plasm a alkaline phosphatase [enzymatic activity/vol ume] in serum or plasma 96 U/L low: 40U/Lh igh: 150U/L Alkal ine Phosp hatas e 96 40 - 150 U/L 12/19 2:51 PM CDT [facility] Not Available Not Available 04/25/2024 02:52:52 12/20/1912/19/2022 [facility] [employer] sushila metab [facility] 1999 panel - Serum or Plasm a alanine aminotransfe rase [enzymatic activity/vol ume] in serum or plasma 12 U/L low: 0U/Lhi gh: 55U/L ALT 12 0 - 55 U/L 12/19 2:51 PM CDT [facility] Not Available Not Available 04/25/2024 02:52:52 12/20/1912/19/2022 Compr [employer] sushila metab olic 1999 panel - Serum or Plasm a aspartate aminotransfe rase [enzymatic activity/vol ume] in serum or plasma 34 U/L low: 5U/Lhi gh: 34U/L AST 34 5 - 34 U/L 12/19 2:51 PM CDT [facility] Not Available Not Available 04/25/2024 02:52:52 12/20/1912/19/2022 Compr [employer] sushila [employer] olic 1999 panel - Serum or Plasm a protein [mass/volume ] in serum or plasma 7.6 text: 6.4 - 8.3 gm/dL Prote in Total 7.6 6.4 - 8.3 gm/dL 12/19 2:51 PM CDT [facility] Not Available Not Available 04/25/2024 02:52:52 12/20/1912/19/2022 Compr [employer] sushila [employer] olic 1999 panel - Serum or Plasm a albumin [mass/volume ] in serum or plasma 3.2 text: 3.4 - 5.0 gm/dL low Album in 3.2 (L) 3.4 - 5.0 gm/dL 12/19 2:51 PM CDT [facility] Not Available Not Available 04/25/2024 02:52:52 12/20/1912/19/2022 Compr [employer] sushila [employer] olic 2000 panel - Serum or Plasm a bilirubin.to marta [mass/volume ] in serum or plasma 0.5 mg/dL low: 0.2mg/ dLhigh : 1.2mg/ dL Bilir ubin Total 0.5 0.2 - 1.2 mg/dL 12/19 2:51 PM CDT [facility] Not Available Not Available 04/25/2024 02:52:52 12/20/1912/19/2022 Compr [employer] sushila [employer] olic 1999 panel - Serum or Plasm a glomerular filtration rate/1.73 sq M.predicted [volume rate/area] in serum, plasma or blood by creatinine-b ased formula (CKD-epi) 78 text: >=90 mL/min /1.73 m2 low eGFR by CKD-E PI 78 (L) >=90 mL/mi n/1.7 3 m2 12/19 2:51 PM CDT [facility] Not Available Not Available 04/25/2024 02:52:52 12/20/1912/19/2022 Compr [employer] sushila [employer] olic 2000 panel - Serum or Plasm a interpretati on and review of laboratory results Abnorm al Not Available Not Available 02:52:52 11/29/19 22 11/28/2021 US, pelvi s, compl ete No observ ation record ed. [facility] [address], [place], [address], 12/03/2021 11:48:19 11/18/19 23 11/17/2022 elect michele flores am No observ ation record ed. [email or web address] [address], [address], 11/17/2022 14:31:18 Result Notes None recorded. Problems Name Problem SNOMED Code Status Onset Date Resolution Date Notes Provider Name and Address Organization Details Recorded Time Chlamydi al infectio n 547715945 Completed 201905/22/2019 LUKASZ FUNES Attn: Accounting ,[address] [facility], [place], [address] , [place] - [facility] 0 18:13:24 Human papillom a virus infectio n 576119364 Active 2019 Vivi Harper [place], [place] [facility] 0 10:26:14 Diabetes mellitus 98863657 Active 2019 Vivi [place] [facility] 0 10:26:12 Iron deficien cy anemia 18281878 Active 2019 LUKASZ FUNES Attn: Accounting ,[address] [facility], [place], [address] , [place] [facility] 0 18:12:59 [facility] hyperten kiara 24085319 Active 2019 MACK Gal[place], [place] [facility] 0 10:26:13 History of bariatri c surgical procedur e 405675248 Active 2019 Gastric sleeve several years ago with redo in 2019 in [facility], [place]. Vivi Harper [place] [facility] 0 10:26:13 Pregnanc y 91387618 Completed 201902/08/2020 Vivi BeckieMACK jiang[place] [facility] 0 10:26:18 Diabetes mellitus 96120163 Completed 2019 Vivi [place] [facility] 0 10:26:12 [facility]ent[facility] l hyperten kiara 87639549 Completed 2019 Vivi BeckieMACK [place] [facility] 0 10:26:13 History of bariatri c surgical procedur e 265394547 Completed 2019 Gastric sleeve several years ago with redo in 2019 in [facility], [place]. Vivi BeckieMACK [place] [facility] 0 10:26:13 Hypercho lesterol emia 07503400 Completed Vivi HarperMACK[place] [facility] 0 10:26:14 Human papillom a virus infectio n 986243089 Completed 2019 Vivi LeroyMACK [place] [facility] 0 10:26:14 Sickle cell trait 88770822 Completed Vivi LeroyMACK [place] [facility] 0 10:26:14 Obesity 869198180 Completed Vivikaren Harper [place] [facility] 0 10:26:12 Grant antibodi es detected 558721560 Completed 2019 Vivi Harper MACK [place], [place] [facility] 0 10:26:13 Grant antibodi es detected 486199167 Active 2019 Vivi HarperMACK [place] [facility] [place] 10:26:13 Group B Streptoc occus carrier [id number] 03 Completed 2019 Vivi Harper MACK [place] [facility] 0 10:26:13 Group B Streptoc occus carrier [id number] 03 Active 2019 Vivi Harper MACK [place] [facility] 0 10:26:13 Bacteria l vaginosi s 050677699 Completed 2019 Vivi [place] [facility] 0 10:26:12 Bacteria l vaginosi s 666064614 Active 2019 Vivi [place] [facility] 0 10:26:12 Abnormal progeste lan 135371678 Completed 2019 Vivi [place] [facility] 0 10:26:13 Abnormal progeste lan 929460976 Active 2019 Vivi [place] [facility] [place] 10:26:13 Past pregnanc y history of miscarri age 025553173 Active 2019 Viv[place] [facility] [place] 10:26:13 Past pregnanc y history of miscarri age 276787344 Completed 2019 Viv[place] [facility] [place] 10:26:13 Advanced maternal age 630804822 Completed 201904/25/2021 LUKASZ FUNES Attn: Accounting ,[address] [place], [address] , [place] [facility] 2 09:19:32 Advanced maternal age 214587450 Completed 2019 Viv[place] [facility] 0 10:26:13 Serum creatini ne above referenc e range 583396051 Active 2021 LUKASZ FUNES Attn: Accounting ,[address] [place], [address] , [place] [facility] 2 14:39:42 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 Zhen Paiz [place] [facility] 6 18:15:03 Diabetes mellitus 00673017 Completed 05/19/2019 LUKASZ FUNES Attn: Accounting ,[address] [place], [address] , [place] [facility] 0 12:28:44 Bacteria l vaginosi s 476600579 Completed 05/22/2019 Zhen LordChencho panfil[place] [facility] 0 12:41:16 Obesity 958293626 Active Vivi [place] [facility] 0 10:26:12 Vitamin D deficien cy 16458096 Active Zhen [place] [facility] 6 18:15:03 Vulvitis 98393859 Active Zhen [place] [facility] 6 18:15:03 Hypercho lesterol emia 86324788 Active Vivi [place] [facility] 0 10:26:14 Hyperten sive disorder 36923068 Completed 05/22/2019 LUKASZ FUNES Attn: Accounting ,[address] [place], [address] , [place] [facility] 0 18:13:43 Sickle cell trait 11741234 Active Viv[place] [facility] 0 10:26:14 Anemia 247289986 Completed 05/22/2019 LUKASZ FUNES Attn: Accounting ,[address] [place], [address] , [place] [facility] 0 18:13:16 Group B Streptoc occus carrier [id number] 03 Completed 201605/22/2019 Zhen [place] [facility] 0 12:41:01 Problem Notes None recorded. Procedures Surgical History Date Name Laterality Status Provider Name and Address Organization Details Recorded Time 06/27/19 21 excision of lesion of skin completed Pari Limon [place] [facility] 07/16/2020 16:22:47 01/09/20 20 Date of Last Pap Smear completed MACK Gallegos [facility] 01/09/2020 10:18:55 12/04/19 20 Depo Injection completed Zhen Paiz [place] - [facility] 12/04/2019 20:19:16 08/07/19 20 cholecystectomy completed Vivi Harper [place] - [facility] 01/09/2020 10:20:45 12/07/19 19 laparoscopic sleeve gastrectomy completed LUKASZ FUNES Attn: Accounting,[address] , [place], [address], [facility] - [facility] 05/22/2019 18:19:33 07/15/19 17 Depo Injection completed Yaima Naik [place] - [facility] 07/14/2016 13:49:55 Imaging Results None recorded. Procedure Notes None recorded. Medical Equipment None Reported. Allergies No known drug allergies Medications Name Sig Start Date Stop Date Status Note LastModified by Organization Details LastModified Time multivitami n tablet Take 1 tablet every day by oral route. 2020 active Not Available Not Available Not Avai lable nifedipine ER 30 mg tablet,exte nded release 24 hr TAKE ONE TABLET BY MOUTH TWICE A DAY 05/30 completed Not Available Not Available Not Available cyclobenzap rine 10 mg tablet TAKE 1 TABLET BY MOUTH EVERY 8 HOURS NEEDED FOR MUSCLE SPASM active Not Available Not Available No t Available fluconazole 100 mg tablet Take 1 tablet every day by oral route for 1 day. 01/08 completed Not Available Not Available Not Available bupropion HCl SR 150 mg tablet,12 hr sustained-r elease Take 1 tablet twice a day by oral route. 03/23 completed Not Available Not Available Not Available doxycycline hyclate 100 mg capsule TAKE 1 CAPSULE BY MOUTH TWICE A DAY FOR 7 DAYS. TAKE W/ MOXIFLOXA AVELINA. START AFTER METRONIDA ZOLE active Not Available Not Available No t Available ciprofloxac in 750 mg tablet 12/20 completed Not Available Not Available Not Available cetirizine 10 mg tablet Take 1 tablet every day by oral route. active Not Available Not Available No t Available lisinopril 20 mg-hydrochl orothiazide 12.5 mg tablet TAKE 1 TABLET BY MOUTH EVERY DAY active Not Available Not Available No t Available azithromyci n 250 mg tablet TAKE 2 TABLETS (500 MG) BY ORAL ROUTE ONCE DAILY FOR 1 DAY THEN 1 TABLET (250 MG) BY ORAL ROUTE ONCE DAILY FOR 4 DAYS 12/03 completed Not Available Not Available Not Available fluconazole 150 mg tablet TAKE 1 TABLET BY MOUTH 1 TIME TODAY AND THEN 1 TABLET ON WEDNESDAY active Not Available Not Available No t Available benzonatate 200 mg capsule 12/03 completed Not Available Not Available Not Available hydrocodone 5 mg-acetamin ophen 325 mg tablet 12/03 completed Not Available Not Available Not Available naltrexone 50 mg tablet Take 0.5 tablets twice a day by oral route. 03/23 completed Not Available Not Available Not Available metronidazo le 0.75 % (37.5 mg/5 gram) vaginal gel INSERT 1 APPLICATO RFULL PER VAGINA AT BEDTIME FOR 5 DAYS 04/17 completed Not Available Not Available Not Available lisinopril 20 mg tablet TAKE 1 TABLET BY MOUTH EVERY DAY active Not Available Not Available No t Available terconazole 0.8 % vaginal cream Insert 1 applicato rful every day by vaginal route for 3 days. 08/02 completed Not Available Not Available Not Available moxifloxaci n 400 mg tablet TAKE 1 TABLET BY MOUTH EVERY DAY FOR 7 DAYS. TAKE W/ DOXYCYCLI NE. START AFTER METRONIDA ZOLE. active Not Available Not Available No t Available phentermine 15 mg capsule TAKE 1 CAPSULE BY MOUTH EVERY DAY BEFORE BREAKFAST active Not Available Not Available No t Available cyanocobala min (vit B-12) 1,000 mcg tablet TAKE 1 TABLET BY MOUTH EVERY DAY active Not Available Not Available No t Available oxycodone 5 mg/5 mL oral solution active Not Available Not Available Not Available penicillin V potassium 500 mg tablet active Not Available Not Available Not Available amlodipine 2.5 mg tablet TAKE 1 TABLET BY MOUTH EVERY DAY active Not Available Not Available No t Available metronidazo le 500 mg tablet TAKE 1 TABLET BY MOUTH EVERY 12 HOURS FOR 7 DAYS active Not Available Not Available No t Available phentermine 37.5 mg tablet TAKE ONE TABLET BY MOUTH ONE TIME DAILY IN THE MORNING active Not Available Not Available No t Available amlodipine 5 mg tablet TAKE 1 TABLET BY MOUTH EVERY DAY active Not Available Not Available No t Available aspirin 81 mg tablet,petty yed release TAKE 1 TABLET BY MOUTH TWICE A DAY 02/27 completed Not Available Not Available Not Available tramadol 50 mg tablet active Not Available Not Available No t Available Condoms-Pre m Lubricated Take 1 device by miscell. route. 12/03 completed Not Available Not Available Not Available acetaminoph en 500 mg tablet active Not Available Not Available Not Available triamcinolo ne acetonide 0.1 % topical cream APPLY A THIN LAYER TO THE AFFECTED AREA(S) BY TOPICAL ROUTE 2 TIMES PER DAY active Not Available Not Available No t Available simvastatin 40 mg tablet Take 1 tablet every day by oral route. 03/23 completed Not Available Not Available Not Available acyclovir 800 mg tablet Take 1 tablet every day by oral route. 07/14 completed Not Available Not Available Not Available amoxicillin 400 mg-potassiu m clavulanate 57 mg/5 mL oral suspension PLEASE SEE ATTACHED FOR DETAILED DIRECTION S active Not Available Not Available No t Available Vitamin tablet Take 1 tablet every day by oral route as directed for 90 days. 07/16 completed Not Available Not Available Not Available prednisolon e acetate 1 % eye drops,suspe nsion active Not Available Not Available Not Available cephalexin 500 mg capsule TAKE 1 CAPSULE BY MOUTH EVERY 12 HOURS active Not Available Not Available No t Available simvastatin 20 mg tablet Take 1 tablet every day by oral route. 07/14 completed Not Available Not Available Not Available ferrous sulfate 325 mg (65 mg iron) tablet TAKE 1 TABLET BY MOUTH TWICE A DAY active Not Available Not Available No t Available metformin 1,000 mg tablet One tablet by mouth twice a day 03/23 completed Not Available Not Available Not Available nystatin 100,000 unit/gram topical cream APPLY TO THE AFFECTED AREA(S) BY TOPICAL ROUTE 2 TIMES PER DAY 12/29 completed Not Available Not Available Not Available misoprostol 200 mcg tablet TAKE 1 TABLET BY MOUTH FOUR TIMES A DAY FOR 5 DAYS 02/27 completed Not Available Not Available Not Available progesteron e micronized 200 mg capsule Take 1 capsule twice a day by oral route. 02/27 completed Not Available Not Available Not Available omeprazole 20 mg capsule,del ayed release Take 1 capsule every day by oral route. active Not Available Not Available No t Available folic acid 1 mg tablet TAKE 2 TABLETS TWICE A DAY BY MOUTH DIRECTED. 04/17 completed Not Available Not Available Not Available montelukast 10 mg tablet TAKE 1 TABLET (10MG) BY MOUTH AT BEDTIME active Not Available Not Available No t Available lisinopril 10 mg-hydrochl orothiazide 12.5 mg tablet active Not Available Not Available Not Available letrozole 2.5 mg tablet TAKE 2 TABLETS BY MOUTH ON CYCLE DAYS 5-9 active Not Available Not Available No t Available labetalol 100 mg tablet TAKE 1 TABLET BY MOUTH TWICE A DAY active Not Available Not Available No t Available albuterol sulfate HFA 90 mcg/actuati on aerosol inhaler INHALE 2 APPLICATI ON (INHALATI ON) EVERY 4 HOURS FOR 7 DAYS NEEDED FOR WHEEZING active Not Available Not Available No t Available Vitamin D2 1,250 mcg (50,000 unit) capsule active Not Available Not Available Not Available ondansetron 4 mg disintegrat ing tablet active Not Available Not Available N ot Available cefdinir 300 mg capsule 12/03 completed Not Available Not Available Not Available medroxyprog esterone 150 mg/mL intramuscul ar suspension INJECT INTRAMUSC ULARLY EVERY 3 MONTHS 04/17 completed Not Available Not Available Not Available doxycycline hyclate 100 mg tablet 12/03 completed Not Available Not Available Not Available diazepam 5 mg tablet active Not Available Not Available No t Available progesteron e micronized 100 mg capsule TAKE 1 CAPSULE BY MOUTH EVERYDAY AT BEDTIME active Not Available Not Available No t Available amoxicillin 875 mg-potassiu m clavulanate 125 mg tablet TAKE 1 TABLET BY MOUTH EVERY 12 HOURS FOR 10 DAYS active Not Available Not Available No t Available oxycodone 5 mg tablet TAKE 1 TABLET BY MOUTH EVERY 6 HOURS NEEDED FOR ACUTE PAIN active Not Available Not Available No t Available Infants Simethicone 40 mg/0.6 mL oral drops,suspe nsion active Not Available Not Available Not Available .5 (28) 1.5 mg-30 mcg (21)/75 mg (7) tablet Take 1 tablet every day by oral route. 08/02 completed Not Available Not Available Not Available Ovidrel 250 mcg/0.5 mL subcutaneou s syringe INJECT ONE PREFILLED SYRINGE UNDER THE SKIN TODAY active Not Available Not Available No t Available topiramate 50 mg tablet TAKE 1 (ONE) TABLET BY MOUTH 2 TIMES DAILY active Not Available Not Available No t Available amlodipine 01/08 completed 5 mg Not Available Not Available Not Available calcium 600 mg (as carbonate)- vitamin D3 10 mcg (400 unit) tablet TAKE 1 TABLET BY MOUTH TWICE A DAY active Not Available Not Available No t Available Calcium with Vitamin D3 600 mg (carbonate) -10 mcg (400 unit) capsule Take 1 capsule twice a day by oral route. 07/16 completed Not Available Not Available Not Available gatifloxaci n 0.5 % eye drops active Not Available Not Available Not Available Lo Loestrin Fe 1 mg-10 mcg (24)/10 mcg (2) tablet Take 1 tablet every day by oral route. 10/04 completed Not Available Not Available Not Available 28 mg iron-800 mcg tablet Take 1 tablet every day by oral route. 2020 active Not Available Not Available Not Avai lable OneTouch Verio test strips 07/16 completed Not Available Not Available Not Available Mini 6.75 mg iron-200 mcg tablet Take 1 tablet every day by oral route for 30 days. 07/14 completed Not Available Not Available Not Available calcium 600 mg (as carbonate)- vitamin D3 20 mcg (800 unit) tablet Take 1 tablet twice a day by oral route. 08/02 completed Not Available Not Available Not Available Caltrate plus D 600 mg (carbonate) -20 mcg (800 unit) chewable tablet Take 1 tablet twice a day by oral route. 07/14 completed Not Available Not Available Not Available PreTAB 29 mg-1 mg tablet TAKE 1 TABLET BY MOUTH EVERY DAY DIRECTED active Not Available Not Available No t Available Contrave 8 mg-90 mg tablet,exte nded release Take 2 tablets twice a day by oral route. 03/23 completed Not Available Not Available Not Available OneTouch Verio Flex Meter 07/16 completed Not Available Not Available Not Available M- Plus 27 mg iron-1 mg tablet TAKE 1 TABLET BY MOUTH EVERY DAY active Not Available Not Available No t Available OneTouch Delica Plus Lancet 33 gauge 07/16 completed Not Available Not Available Not Available Slynd 4 mg (28) tablet TAKE 1 TABLET BY MOUTH EVERY DAY 07/18 completed Not Available Not Available Not Available B12 Active 1,000 mcg chewable tablet Take one tablet by mouth once daily 01/08 completed Not Available Not Available Not Available Nextstellis 3 mg-14.2 mg (28) tablet Take 1 tablet every day by oral route. 10/23 completed Not Available Not Available Not Available Vitals Date Recorded Systolic blood pressure Diastolic blood pressure Provider Name and Address Organization Details Last Updated DateTime 04/17/2021 148 mm[Hg] 84 mm[Hg] LUKASZ FUNES Attn: [address] [place], [address], [facility] 04/17/2021 12:31:57 Date Recorded Body height Body mass index (BMI) Body weight Systolic blood pressure Diastolic blood pressure Provider Name and Address Organization Details Last Updated DateTime 04/17/2021 165.1 cm 32.4 kg/m2 41165.51 g 132 mm[Hg] 98 mm[Hg] Uma Sauceda MA [facility] 11:48:27 Date Recorded Body height Body mass index (BMI) Body weight Provider Name and Address Organization Details Last Updated DateTime 07/18/2020 165.1 cm 32.4 kg/m2 18843.51 g Uma Sauceda MA [facility] 07/18/2020 14:23:02 Date Recorded Body height Provider Name an d Address Organization Details Last Updated DateTime 10/04/2020 165.1 cm Vivi hernandez MA [facility] 10/04/2020 10:53:32 Date Recorded Systolic blood pressure Diastolic blood pressure Provider Name and Address Organization Details Last Updated DateTime 10/23/2021 136 mm[Hg] 86 mm[Hg] LUKASZ FUNES Attn: [employer] [place], [address], [facility] 10/23/2021 11:54:17 Date Recorded Body height Body mass index (BMI) Body weight Heart rate Body temperature Oxygen saturation Oxygen saturation in Arterial blood by Pulse oximetry Systolic blood pressure Diastolic blood pressure Provider Name and Address Organization Details Last Updated DateTime 165.1 cm 32.8 kg/m2 60902.7 g 84 /min 98.9 [degF] 98 % 98 % 126 mm[Hg] 92 mm[Hg] Uma Sauceda MA [facility] 2 11:31:26 Date Recorded Body height Body mass index (BMI) Body weight Provider Name and Address Organization Details Last Updated DateTime 12/20/2020 165.1 cm 30 kg/m2 97578.63 g Pari Limon MA [facility] 12/20/2020 11:51:10 Social History Question Answer Notes LastModified by Organizat ion Details LastModified Time Tobacco Smoking Status Never Smoker Hortencia Montanez MA null, [facility] 01/14/2015 15:54:30 Do You Have An Advance Directive? No Information not available 05/09/2015 If You Are , What Was Your Level Of Alcohol Consumption Prior To ? Occasional Information not available 05/09/2015 How Many Years Have You Consumed Alcohol? 13 Information not available 05/09/2015 Is Anesthesia Consult Planned? No Information not available 05/09/2015 Plan No Information no t available 05/09/2015 Are You Blind Or Do You Have Difficulty Seeing? No Information not available 01/14/2015 Is Blood Transfusion Acceptable In An Emergency? No Information not available 01/14/2015 What Is Your Level Of Caffeine Consumption? Occasional Information not available 02/28/2020 Live With Cats/exposure To Cat Litter No Information not available 05/09/2015 How Much Tobacco Do You Chew? None Information not available 01/14/2015 In The 14 Days Before Symptom Onset, Have You Had Close Contact With A Laboratory-confir med COVID-19 While That Case Was Ill? No Information not available 05/30/2020 In The 14 Days Before Symptom Onset, Have You Had Close Contact With A Person Who Is Under Investigation For COVID-19 While That Person Was Ill? No Information not available 05/30/2020 Have You Been To An Area Known To Be High Risk For COVID-19? No Information not available 05/30/2020 Are You Deaf Or Do You Have Serious Difficulty Hearing? No Information not available 01/14/2015 What Type Of Diet Are You Following? REGULAR Information not available 01/14/2015 Which Illicit Or Recreational Drugs Have You Used? None Information not available 01/14/2015 Education 2 Year College Informatio n not available 01/14/2015 Have There Been Any Changes To Your Family Or Social Situation? No Information no t available 05/09/2015 Frequent Air Travel No Information not available 05/09/2015 Live Alone Or With Others? With Others Information not available 01/14/2015 What Was The Date Of Your Most Recent Tobacco Screening? 04/17/2021 Information not available 04/25/2021 How Many Children Do You Have? 0 Information not available 01/14/2015 Performs Monthly Self-breast Exam? Yes Information no t available 01/14/2015 Do You Use Protection During Sex? Usually Information not available 01/14/2015 What Is Your Relationship Status? Single Information not available 05/30/2020 Do You Use Your Seat Belt Or Car Seat Routinely? Yes Information not available 07/16/2020 Seat Belts Used Routinely Yes Information not available 01/14/2015 Are You Sexually Active? Yes Information not available 01/14/2015 Do You Have Smoke And Carbon Monoxide Detectors In Your Home? Yes Information not available 05/09/2015 Are You Passively Exposed To Smoke? No Information no t available 05/09/2015 How Much Tobacco Do You Smoke? No Information not available 01/14/2015 General Stress Level Low Information not available 06/06/2015 Do You Use Sunscreen Routinely? No Information not available 01/14/2015 Supplements Vitamins Information not available 05/09/2015 Has Tobacco Cessation Counseling Been Provided? No Information not available 07/16/2020 On What Date Was Tobacco Cessation Counseling Provided? 12/20/2020 Information not available 12/20/2020 How Many Years Have You Smoked Tobacco? 0 Information not available 07/14/2016 Do You Have Difficulty Walking Or Climbing Stairs? No Information not available 01/14/2015 Sex: Female Functional Status Question Answer Note LastModified by Organizat ion Details LastModified Time Do you use any illicit or recreational drugs? No Information not available 07/16/2020 Do you or have you ever used any other forms of tobacco or nicotine? No Information not available 07/16/2020 What is your level of alcohol consumption? Occasional Information not available 01/14/2015 Do you or have you ever used smokeless tobacco? Never used smokeless tobacco Information not available 03/22/2019 Are you currently employed? No Information not available 01/14/2015 Do you have difficulty doing errands alone? No Information not available 01/14/2015 What is your occupation? Unemployed, with no work experience in the last 5 years or earlier or never worked [facility] Information not available 05/30/2020 Do you have difficulty dressing or bathing? No Information not available 01/14/2015 Do you or have you ever used e-cigarettes or vape? Never used electronic cigarettes Information not available 03/22/2019 What is your exercise level? Occasional Information not available 01/14/2015 Mental Status Question Answer Note LastModified by Organization D etails LastModified Time Do you have difficulty concentrating, remembering or making decisions? No Information no t available 01/14/2015 Family History Nothing Reported. Medical History Condition Response Coronary Artery Disease N Other N Atrial Fibrillation N High Blood Pressure N Breast Cancer N Depression N COPD N Blood Clots N Lung Disease N Breast Problem N Anesthesia Complications N Headaches/Migraines N Anxiety Disorder N Muscle, Joint, or Bone Problems N Arthritis N Infertility N Polyps N Acid Reflux (GERD) N Cancer N Stroke N Endometriosis N High Cholesterol N Liver Disease N Fibromyalgia N Kidney Disease N Heart Problems N Thyroid Problems N Kidney or Bladder Problems N GI Problems N Acne N Eating Disorder N Anemia N Heart Attack (AR) N Ovarian Cancer N Diabetes Y Blood Transfusions N Seizures/Epilepsy N Abuse/Domestic Violence N Asthma N Hepatitis N Heart Disease N Pre-Eclampsia N Hypertension N Osteoporosis N Heart Failure N Gynecological History Statement/Question Response Abnormal Pap Y Date of LMP 08/17/2021 On BCP's at Conception? N STIs/STDs N HPV Vaccine Y Age at Menarche 9 Current Control Method None Age at First Child Sexually Active? Y Menses Monthly No Date of Last Pap Smear 01/09/2020 Sexual Problems? N LMP Approximate Desired Control Method Hormonal In jection Obstetrics History GPAL:G 2 P 0 0 2 0 Type Value Multiple Births 0 Full Term 0 Induced 0 Spontaneous 2 Premature 0 Living 0 Ectopics 0 Total 2 Immunizations Vaccine Type Date Status Note Provider Nam e and Address Organization Details Recorded Time Influenza, split virus, quadrivalent, preservative 7 completed Not Available [facility] 03/25/2019 02:41:33 Influenza, split virus, quadrivalent, PF 0 completed Edith Lyons LPN null, [place] - [facility] 01/24/2020 12:18:40 Past Encounters Encounter ID Performer Location Encounter Start Date Encounter Closed Date Diagnosis/Indication Diagnosis SNOMED-CT Code Diagnosis ICD10 Code Diagnosis Note [id number] MD Guevara Gilmore (NICKEL OPERATOR) [address] [place] [address] [id number] 01/14/2015 14:52:25 01/14/2015 17:01:52 Family planning surveillance 431462925 Z30.[address] reptococcus carrier 2998881606 103 Z22.330 Diabetes mellitus 355686 09 E11.9 Bacterial vaginosis 4197 62070 N76.0 Obesity 321109549 E66.9 [id number] [facility] ([facility]EL [facility]PER[facility]) [address] [place] [address] [id number] 03/06/2015 15:29:07 03/06/2015 20:23:55 Vitamin D deficiency 28080726 E55.9 Family antonio nning surveillance 939807000 Z30.[address] reptococcus carrier 8582873314 103 Z22.330 Obesity 878567555 E66.9 Diabetes mellitus 768241 09 E11.9 Venereal d isease screening 448221329 Z11.3 [id number] MD Guevara Gilmore (NICKEL OPERATOR) [address] [place] [address] [id number] 0 05/09/2015 15:25:45 05/09/2015 17:45:30 Routine care 458389608 Z34.91 Diabetes mellitus 816093 09 E11.9 Obtaining HbA1C. Will refer to high risk. Obesity 184993174 E66.9 High risk 4720 0007 O09.91 Hypercholesterolemia 136 82080 E78.0 Hypertensive disorder 38 426577 I10 Advanced m aternal age 553574477 O09.891 Threatened miscarriage 58829213 O20.0 [id number] [facility] [address] [place] [address] [id number] 0 06/06/2015 14:44:37 06/06/2015 18:16:46 Family planning surveillance 680478295 Z30.09 Diabetes mellitus 414619 09 E11.9 Continue diabetes medication s. Group B St reptococcus carrier 1543441720 103 Z22.330 Genital he rpes simplex 24645013 A60.9 Advanced m aternal age 333835210 O09.891 High risk 4720 0007 O09.91 Hypertensive disorder 38 016931 I10 Obesity 252243441 E66.9 Sickle cell trait 635058 00 D57.3 Anemia 681535757 D64.9 [id number] [facility] ([facility]EL [facility]PER[facility]) [address] [place] [address] [id number] 0 04/07/2016 14:32:53 04/08/2016 11:11:31 Gynecologic examination 49846900 Z01.419 Diabetes mellitus 707581 09 E11.9 Continue diabetes medication s. Sickle cell trait 194632 00 D57.3 Polycystic ovaries 18502 008 E28.2 Hypertensive disorder 38 903408 I10 Genital he rpes simplex 82151330 A60.9 Obesity 638550967 E66.9 [id number] [facility] [address] [place] [address] [id number] 0 07/14/2016 11:57:28 07/14/2016 15:26:31 Vaginal discharge 724302929 N89.8 Exposure t o sexually transmissible disorder 518667301 Z20.2 Obesity 082164690 E66.9 declines weight loss medication , nutritioni st/dietici an, and bariatric surgery referral Diabetes mellitus 758293 09 E11.9 Continue diabetes medication s. Hypertensive disorder 38 479719 I10 Bacterial vaginosis 4197 51481 N76.0 Candidiasis of vagina 72 566775 B37.3 Family antonio nning surveillance 581060764 Z30.09 Vulvitis 15112571 N76.2 Stop soaping excessivel y to vulva Sickle cell trait 986640 00 D57.3 Gynecologi c examination 83589461 Z01.419 Z11.51 [id number] MD Guevara Gilmore (NICKEL OPERATOR) [address] [place] [address] [id number] 0 12/29/2016 11:53:06 12/29/2016 13:06:49 Irregular periods 19381168 N92.6 Family antonio nning surveillance 465155204 Z30.09 Hypertensive disorder 38 593821 I10 Will be addressed with weight loss surgery Diabetes mellitus 770340 09 E11.9 Will be addressed with weight loss surgery Administra tion of influenza vaccine 86580178 Z23 [id number] MD Guevara Gilmore (NICKEL OPERATOR) [address] [place] [address] [id number] 0 10/04/2017 15:23:21 10/05/2017 11:48:47 Gynecologic examination 44946108 Z01.419 Z11.51 Exposure t o sexually transmissible disorder 867781397 Z20.2 Diabetes mellitus 722006 09 E11.9 Will be addressed with weight loss surgery Obesity 007270805 Z68.41 weight loss medication bariatric surgery referral Sickle cell trait 738745 00 D57.3 Genital he rpes simplex 89287723 A60.9 Hypertensive disorder 38 739155 I10 Will be addressed with weight loss surgery Hypercholesterolemia [address] reptococcus carrier 1855056729 103 Z22.330 Polycystic ovaries 06412 008 E28.2 [id number] MD Guevara Gilmore (NICKEL OPERATOR) [address] [place] [address] [id number] 0 02/16/2018 18:14:41 02/16/2018 19:55:05 [id number] MD Guevara Gilmore (NICKEL OPERATOR) [address] [place] [address] [id number] 08/02/2018 11:51:36 08/02/2018 17:53:01 Exposure to sexually transmissible disorder 661929442 Z20.[address] reptococcus carrier 6693796617 103 Z22.330 Sickle cell trait 726975 00 D57.3 Genital he rpes simplex 54125762 A60.9 Hypertensive disorder 38 721074 I10 Will be addressed with weight loss surgery Obesity 469659632 Z68.41 weight loss medication bariatric surgery referral Bacterial vaginosis 4197 47469 N76.0 Candidiasis of vagina 72 944526 B37.3 Diabetes mellitus 575579 09 E11.9 Will be addressed with weight loss surgery Family antonio nning surveillance 440135001 Z30.09 Polycystic ovaries 21759 008 E28.2 [id number] MD Guevara Gilmore (NICKEL OPERATOR) [address] [place] [address] [id number] 0 03/23/2019 10:39:04 03/23/2019 14:59:56 Gynecologic examination 47230544 Z01.419 Z11.51 Sickle cell trait 672930 00 D57.3 Diabetes mellitus 673987 09 E11.9 Will be addressed with weight loss surgery Obesity 690282640 Z68.42 weight loss medication bariatric surgery referral [id number] LUKASZ FUNES (NICKEL OPERATOR) [address] [place] [address] [id number] 0 05/19/2019 11:03:18 05/23/2019 09:23:13 Essential hypertension 60761241 I10 Restarting amlodipine , lisinopril , and HCTZ. Advised to take meds as directed, low sodium diet, exercise, and frequent BP checks. Bring BP log to 1 mon f/u. Adult heal th examination 013918449 Z00.00 Body mass index 40+ - severely obese 487184893 Z68.41 Increase fruits and vegetables in diet. Exercise at least 30 minutes 3-4x/week then increase to 60 minutes 3-4x/wk. Vitamin D deficiency 347 30208 E55.9 H/o of vit D deficiency . Recheck need for rx. Type 2 marty betes mellitus 81790427 E11.9 Last A1C:less than 7.0% Goal A1C less than:7.0% Current Therapy:di et# metfor min sulfon ylurea TZD SGLT-2 DD P-4 GLP-1 RA long-ac ting insulin ra pid/short- acting insulin Statin:no FLO/ARB:ye s Foot Exam:compl eted in the past 12 months-neg ative Nephropath y Screening: completed in the past 12 months- negative Pneumovax 23:Not given Eye Exam:compl eted in the last 12 months- negative Patient Education: healthy diet: yes# yes n o exercise: yes# yes n o weight loss: yes# yes n o foot care: yes# yes n o complicati ons of uncontroll ed diabetes: yes# yes n o medication compliance : yes# yes n o Next Visit: 6 month(s) Cholelithi asis without obstruction 55026779 K80.20 Cholecyste ctomy scheduled for June. Iron defic iency anemia 46609387 D50.9 Per hospital records. Discharged on iron supplement . Will recheck levels at next appt. Sickle cell trait 193292 00 D57.3 Likely contributi ng to anemia. History of bariatric surgical procedure 498969606 Z98.84 Gastric sleeve several years ago with redo in 2019 in [facility]. [id number] MD Guevara Gilmore (NICKEL OPERATOR) [address] [place] [address] [phone] 0 12/04/2019 11:45:12 12/05/2019 09:51:23 Essential hypertension 70462451 I10 History of bariatric surgical procedure 216752423 Z98.84 Hypercholesterolemia 136 59309 E78.00 Sickle cell trait 641691 00 D57.3 Candidiasis of vagina 72 411130 B37.3 Family antonio nning surveillance 586900727 Z30.09 pt wanting depo for control [id number] MD Guevara Gilmore [facility] (NICKEL OPERATOR) [address] [place] [address] [phone] 0 12/05/2019 17:25:12 12/05/2019 17:38:03 Depot contraceptive-no problem 912945148 Z30.680 [id number] LUKASZ FUNES HC (NICKEL OPERATOR) [address] [place] [address] [phone] 0 12/14/2019 08:15:16 12/19/2019 16:14:47 Interstitial lung disease 476334241 J84.9 Ground glass opacities noted on CT scan in ED Mar 2019. PFT with FEV1 91%, diffusing capacity 55%. She saw a thoracic surgeon on 07/13/2019 and was Dx with possible hypersensi tivity pneumoniti s (?mold). They would like to get a lung biopsy for a definitive Dx but due to COVID that has been placed on hold. She has appt with IR in March. Continue following up with specialist s for further workup and management . Candidiasis of vagina 72 550625 B37.3 Pt requests Diflucan for candidiasi s. She states Dr. Paiz just prescribed her 1 pill but she usually needs two to clear infection. Chronic cough 30956899 R 05 Chronic cough for years, work up still ongoing. Pulmonolog ist prescribed singular, nasal saline, and astelin. She has not been using these medication s but has been using albuterol inhaler (per ED) multiple times per day with little relief. Advised that nebulizer unlikely to be helpful as no diagnosis of obstructiv e airway disease. Advised to continue with nasal sprays, Singular and Zyrtec daily. Further eval and management per pulm recs. [id number] MD Guevara Gilmore [facility] (NICKEL OPERATOR) [address] [place] [address] [phone] 0 01/09/2020 10:00:39 01/10/2020 12:50:57 Routine care 117141373 Z34.91 Venereal d isease screening 587405122 Z11.3 screening 2437 74586 Z36.85 Abnormal progesterone 13 2582226 R94.7 Past pregn renato history of miscarriage 598616747 Z87.59 Advanced m aternal age 676589041 O09.534 [id number] LUKASZ FUNES (NICKEL OPERATOR) [address] [place] [address] [phone] 0 01/24/2020 10:20:53 01/29/2020 11:01:20 Routine care 264010219 Z34.91 39 y/o F with PMH of obesity, DM, HTN, ILD, iron-defic iency anemia, sickle-bridget l trait, history of bariatric surgery, miscarriag e, +GBS, + Grant antibody presents at 10w3d for ACOG. Test results reviewed. OB educationa l packet reviewed and provided to pt. US 01/12/2020 with EDC 08/18/2020 Advanced m aternal age 788062571 O09.521 Referral to [facility] placed, appt upcoming. Pt getting NIPT drawn next week. Administra tion of influenza vaccine 10753712 Z23 Grant anti bodies detected 615665006 R76.8 Not a cause of HDN, [facility] referral for input. [id number] MD Guevara Gilmore (NICKEL OPERATOR) [address] [place] [address] [phone] 0 02/06/2020 16:04:42 02/13/2020 08:30:22 Routine care 652209840 Z34.91 Diabetes mellitus 827910 09 E11.9 Will be addressed with weight loss surgery Past pregn renato history of miscarriage 793991524 Z87.59 Grant anti bodies detected 086910725 R76.8 History of bariatric surgical procedure 452316189 Z98.84 Advanced m aternal age 819461561 O09.891 has appointmen t with [facility] tomorrow (02/07/20) with US for viability Abnormal progesterone 13 7733116 R94.7 Sickle cell trait 939709 00 D57.3 [id number] MD Guevara Gilmore (NICKEL OPERATOR) [address] [place] [address] [phone] 0 02/08/2020 10:08:18 02/13/2020 12:32:33 Past history of miscarriage 128413997 Z87.59 discontinu e RPL meds but restart next Family antonio nning surveillance 374813681 Z30.09 continue multivitam in, calcium. Sickle cell trait 051567 [address] reptococcus carrier 2391781636 103 Z22.330 Advanced m aternal age 802703168 O09.891 Abnormal progesterone 13 9351172 R94.7 Incomplete miscarriage 689933711 O03.4 Normal grief reaction 27 0617314 F43.20 [id number] LUKASZ FUNES (NICKEL OPERATOR) [address] [place] [address] [phone] 0 02/28/2020 08:01:07 03/04/2020 07:51:02 Family planning surveillance 500052071 Z30.09 Discussed different control options with patient such as OCPs, patch, ring, Depo Provera shot, Nexplanon, and IUDs. Given increased cardiovasc ular risk factors including obesity, HTN, DM2, recommende d progestin only options or low dose hormone pills. Pt interested in POPs. Start Slynd as prescribed . Counseled pt on use and side effects. RTC in 3 months. Disorder o f vitamin B12 036361991 E53.8 Pt needs refill on B12 vitamins. Past pregn renato history of miscarriage 268818895 Z87.59 Two miscarriag es. 1 earlier this month. Pt states she is doing ok. Has not followed up with counselor, encouraged . [id number] LUKASZ FUNES (NICKEL OPERATOR) [address] [place] [address] [phone] 0 05/30/2020 08:06:04 06/06/2020 07:37:46 Essential hypertension 53136511 I10 Will discontinu e nifedipine and restart amlodipine , lisinopril , and HCTZ. Advised to take meds as directed, low sodium diet, exercise, and frequent BP checks. Bring BP log to 1 month follow up. Contraception care 19810 5005 Z30.41 On Slynd, tolerating well. Will continue as prescribed . No plans for in next year. [id number] MD Guevara Gilmore [facility] (NICKEL OPERATOR) [address] [place] [address] [phone] 0 07/16/2020 15:59:00 07/27/2020 08:42:43 Diabetes mellitus 44772462 E11.9 Will be addressed with weight loss surgery Body mass index 40+ - severely obese 308644108 Z68.41 Sickle cell trait 875516 00 D57.3 Interstiti al lung disease 417293498 J84.9 Exposure t o sexually transmissible disorder 512185636 Z20.2 Screening for osteoporosis 455757369 Z13.820 Depot contraceptive-no problem 748764450 Z30.013 Family antonio nning surveillance 500153479 Z30.09 continue multivitam in, calcium. [id number] LUKASZ FUNES HC (NICKEL OPERATOR) [address] [place] [address] [phone] 0 07/18/2020 07:59:30 07/19/2020 08:31:38 Gastroesophageal reflux disease without esophagitis 890196802 K21.9 Symptoms c/w GERD. Start PPI as prescribed . Discussed limiting aggravatin g foods and staying upright after meals. History of bariatric surgical procedure 848208241 Z98.84 Sleeve gastrectom y several years ago with mini bypass in 2019 in [facility]. Obesity 860144529 E66.9 Discussed diet high in fruits and vegetables . Limit fat, sugar, and processed foods. Exercise at least 30 minutes 5x/week. Type 2 marty betes mellitus 18416738 E11.9 Diet controlled . Last A1c 5.4. Recheck. Essential hypertension 92470144 I10 Continue amlodipine , lisinopril , and HCTZ. Advised to take meds as directed, low sodium diet, exercise, and frequent BP checks. [id number] LUKASZ FUNES HC (NICKEL OPERATOR) [address] [place] [address] [phone] 10/04/2020 09:53:05 10/04/2020 16:01:53 Family planning surveillance 370541836 Z30.09 Discussed different control options with patient such as OCPs, patch, ring, Depo Provera shot, Nexplanon, and IUDs. Given increased cardiovasc ular risk factors including obesity, HTN, DM2, recommende d progestin only options or low dose hormone pills. Pt interested in POPs. Start Slynd as prescribed . Counseled pt on use and side effects. RTC in 3 months. [id number] MD Guevara Gilmore HC (NICKEL OPERATOR) [address] [place] [address] [phone] 12/20/2020 10:12:16 12/23/2020 10:22:52 Depot contraceptive-no problem 092466874 Z30.658 [id number] LUKASZ FUNES (NICKEL OPERATOR) [address] [place] [address] [phone] 0 04/17/2021 11:24:44 04/25/2021 13:48:55 Contraception care 240903841 Z30.41 On Depo Provera, interested in switching to OCPs. Will start Nexstellis . Counseled on use, SE, and RF. RTC in 3 months. Diabetes mellitus 241521 09 E11.9 Diet controlled . Advised yearly eye exam. Essential hypertension 66515828 I10 Continue amlodipine , lisinopril , and HCTZ. Advised to take meds as directed, low sodium diet, regular exercise, and maintain healthy weight. Obesity 284667504 E66.9 BMI 32.4. Discussed diet high in fruits and vegetables . Limit fat, sugar, and processed foods. Exercise at least 30 minutes 5x/week. [id number] LUKASZ FUNES (Adult Med) [address] [place] [address] 10/23/2021 11:11:02 10/24/2021 14:03:32 Diabetes mellitus 78353737 E11.9 Last A1c 5.0%. Diet controlled . Advised yearly eye exam and routine feet checks. RTC in 6 months. Essential hypertension 90149044 I10 Continue amlodipine , lisinopril , and HCTZ. Advised to take meds as directed, low sodium diet, regular exercise, and maintain healthy weight. Obesity 638112401 E66.9 BMI 32.8. Recommende d daily exercise with a goal of 150 min/week of moderate-s trenuous activity and a balanced diet with an emphasis on fruits, vegetables , whole grains, legumes, lean protein, and mono/polyu nsaturated fats. Missed period 43219374 N 92.5 LMP 08/17/21. Stopped OCPs in July. Urine HCG negative in office today. Advised pt to RTC if amenorrhea persists for 3 months. Health Concerns Section Related Observation LastModified by Organization Detai ls LastModified Time None Recorded Concern Status LastModified by Organization Details LastModified Time None Recorded Advance Directives Directive N: Payers Encounter Date Sequence Insurance Name Policy Number Policy Anderson Covered Member ID Anderson Member ID Guarantor Name 07/18/2020 1 [facility] PRIOR TO 09/05/2020 (MEDICAID REPLACEMENT - HMO) Marcia Brody [id number] Marcia Brody 10/04/2020 1 [facility] ON OR AFTER 09/05/20 (MEDICAID REPLACEMENT - HMO) Marcia Brody [id number] Marcia Brody 12/20/2020 1 [facility] ON OR AFTER 09/05/20 (MEDICAID REPLACEMENT - HMO) aMrcia Brody [id number] Marcia Brody 04/17/2021 1 [facility] ON OR AFTER 09/05/20 (MEDICAID REPLACEMENT - HMO) Marcia Brody [id number] Marcia Brody 10/23/2021 1 [facility] ON OR AFTER 09/05/20 (MEDICAID REPLACEMENT - HMO) Marcia Brody [id number] Marcia Brody Notes Date Note Type Note Provider Name and Address Organization Details Recorded Time 07/18/2020 text/html Abdominal PainReported bypatient.Location:LL Q; epigastric Quality:bloating;achi ng Severity:mild Duration:intermittent Context:food Modifying Factors:PPI Associated Symptoms:no fever; no chills; no blood in the urine; no heartburn; no shortness of breath Other:denies possible ; uses control 39yo F with h/o sleeve gastrectomy with mini bypass, cholecystectomy 2019, HTN, DM2 presents via phone with complaints of upper left side abdominal pain. She describes it as hunger pain. She states she has tried Protonix which alleviated her pain. Denies n/v, fevers, melena, BRBPR, changes in BMs, urinary symptoms, decreased appetite. LUKASZ FUNES Attn: [address] [place], [address], [facility] 07/18/2020 15:37:34 04/17/2021 text/html 40yo F with PMHx of DM2, HTN, HLD, obesity s/p gastric sleeve, JADIEL presents for control discussion and medication refills. She is currently using Depo Provera injections for contraception but is interested in switching back to OCPs as she is gaining weight and also considering trying for a baby again in the future. She is currently amenorrheic on Depo. Patient denies personal history of DVT/PE, uncontrolled HTN, cardiovascular disease, stroke, migraines, or seizures. She denies tobacco use. She is doing well managing other chronic conditions. She has run out of BP meds but is tolerating well. She has been managing DM with diet for years. She has no concerns today. LUKASZ FUNES Attn: [address] , [place], [address], [facility] 04/25/2021 09:26:19 10/23/2021 text/html 41yo F with PMHx of DM2, HTN, HLD, obesity s/p gastric sleeve, JADIEL presents for medication refills. She is doing well managing chronic conditions. She has run out of BP meds but is tolerating well. She has been managing DM with diet for years. She reports missing period in September, LMP 08/17/21. She stopped OCPs in July, and had unprotected intercourse during fertile window. She is not interested in starting contraceptives today. LUKASZ FUNES Attn: [address]ing[address] , [place], [address], [facility] 10/23/2021 12:05:03 OBGyn Episode Ob Episode Information Episode Created Date Number of Fetuses Patient Bloodtype Patient rh Status Prepregnancy Weight lbs Domestic Partner Domestic Partner Phone Father Name Jewelry Engraver Status 01/09/20 20 1 A Positive 225 CLOSED Fetus Data First Name Last Name Admitted to NICU Weight (g) Sex Living Outcome Pediatric Complications Fetus ID Race Codes Race Delivery Type [id number] Problems Problem Notes circumsise if boy,yes to epi dural,undecided on drafter directional survey,PPBC undecided,combo feed. Patient does not want the umbilical cord to be cut after delivery. Problem Name Start Date End Date Resolution Snomed Code Not e Hypercholesterolemia 67654072 Abnormal progesterone 01/19/2020 8512126 00 Essential hypertension 05/22/2019 977864 00 Bacterial vaginosis 01/19/2020 188862693 History of bariatric surgical procedure 05/22/2019 871585651 Gastric sleeve several years ago with redo in 2019 in [facility]. Human papilloma virus infection 03/31/2019 968758979 Sickle cell trait 12177411 Past history of miscarriage 01/19/2020 549464523 Advanced maternal age 02/06/2020 678399164 Diabetes mellitus 05/19/2019 40241371 Obesity 733629576 Grant antibodies detected 01/19/2020 165 084826 Group B Streptococcus carrier 01/19/2020 [id number] Cisco Calculation Initial Cisco Date Initial Exam Date Initial Exam Provider Initial Ultrasound Date Last Menstrual Period Date Ultra Sound Weeks Gestation 08/18/2020 01/09/2020 [facility] 01/12/2020 11/08/2019 8 Eighteen To Twenty Week Cisco Update Ultra Sound Date Fundal Height At Umbil Quickening Date Ultra Sound Latest Weeks Gestation Final Cisco Confirmed By Final Cisco Confirmed Date Final Cisco Date Ultra Sound Latest Days Gestation 01/12/[address] [facility] 01/24/2020 021 5 Pre-kristen Flowsheet Flowsheet Date 01/09/2020 Gillette Score Blood Edema Fundus Height Fundus Units Glucose Ketones Leukocytes Nitrite Labor Signs Protein Cervic Dilation Cervic Effacement Cervic Station neg none 8 wks none negative neg Type Weight in lbs Pre/Post Dialysis Refused With clothes 225.828252249798 BP Diastolic BP Location Tested BP Systolic BP Type 68 114 sitting Fetus Heart Rate Present Fetus Movement Comments NOB with history of miscarri age protocol Flowsheet Date 01/24/2020 Gillette Score Blood Edema Fundus Height Fundus Units Glucose Ketones Leukocytes Nitrite Labor Signs Protein Cervic Dilation Cervic Effacement Cervic Station 10 wks none Type Weight in lbs Pre/Post Dialysis Refused Weight 217.487296686635 BP Diastolic BP Location Tested BP Systolic BP Type 68 110 sitting Fetus Heart Rate Present Fetus Movement Comments ACOG at 10w3d. Test results reviewed. OB educational packet reviewed and provided to pt. US 01/12/2020 with EDC 08/18/2020 Flowsheet Date 02/06/2020 Gillette Score Blood Edema Fundus Height Fundus Units Glucose Ketones Leukocytes Nitrite Labor Signs Protein Cervic Dilation Cervic Effacement Cervic Station neg none 12 wks none negative Cramping neg Type Weight in lbs Pre/Post Dialysis Refused With clothes 218.166644679161 BP Diastolic BP Location Tested BP Systolic BP Type 70 108 sitting Fetus Heart Rate Present A Absent Fetus Movement Comments has appointment with [facility] tomorrow morning. Had NIPT last week at [facility], results pending. Instructed patient to see what US shows tomorrow for viability since US on 01/10 showed cardiac activity. Flowsheet Date 02/08/2020 Gillette Score Blood Edema Fundus Height Fundus Units Glucose Ketones Leukocytes Nitrite Labor Signs Protein Cervic Dilation Cervic Effacement Cervic Station Type Weight in lbs Pre/Post Dialysis Refused BP Diastolic BP Location Tested BP Systolic BP Type Fetus Heart Rate Present Fetus Movement Comments Menstrual History Last Menstrual Date Menses Monthly On Bcp Conception Prior Menses Frequency Hcg Plus Date Menarche Onset Age 0911/08/2019 true true 4 10 Genetic Screening And Infection History Question Response Note Patient's Age Will Be 35 Yea rs Or Older At Estimated Date of Delivery false Thalassemia (Maori, Irish, Mediterranean, Or Background): MCV < 80 false Neural Tube Defect (Meningomyelocele, Spina Bifi da, Or Anencephaly) false Congenital Heart Defect false Down Syndrome false David-Sachs (eg, Quaker, Cajun, Amharic-Avery) f alse Freddy Disease false Sickle Cell Disease Or Trait () true patient Hemophilia Or Other Blood Disorders false Muscular Dystrophy false Cystic Fibrosis false Josafat's Chorea false Mental Retardation/Autism false If Yes, Was Person Tested For Fragile X? false Other Inherited Genetic Or Chromosomal Disorder false Maternal Metabolic Disorder (eg, Type 1 Diabetes , PKU) false Patient Or Baby's Father Had A Child With Defects Not Listed Above false Recurrent Loss, Or A Stillbirth false Medications (including Suppl ements, Vitamins, Herbs, OTC Drugs), Illicit/Recreational Drugs, Alcohol false If Yes, Agent(s) And Strength/Dosage false Any Other Genetic History false Live With Someone With TB Or Exposed To TB false Patient Or Partner Has History Of Genital Herpes false Rash Or Viral Illness Since Last Menstrual Perio d false History Of STD, Gonorrhea, Chlamydia, HPV, Syphi lis false Other Infection History false History of HIV false History of Hepatitis false Prior GBS-infected child false Plans and Education First Trimester Discussed Date Discussion Item Discussion Note Discuss ed By 01/24/2020 Anticipated course o f care 01/24/2020 Alcohol denies 01/24/2020 Intimate partner violence [email or web address] [email or web address] 01/24/2020 Environmental/work hazards j [email or web address] 01/24/2020 Screening for aneuploidy jco [email or web address] 01/24/2020 Nutrition counseling ; special diet; dietary precautions (mercury, listeriosis) 01/24/2020 Childbirth classes/h ospital facilities schedule of classes provided 01/24/2020 HIV and other routin e tests 01/24/2020 Risk factors identif ied by history multiple comorbidities, AMA 01/24/2020 Weight gain counseling <20 pounds jcort [email or web address] 01/24/2020 Exercise 01/24/2020 Teratogens 01/24/2020 Use of any medicatio ns (including supplements, vitamins, herbs, or OTC drugs) 01/24/2020 plans to breastfeed [email or web address] [email or web address] 01/24/2020 Sexual activity 01/24/2020 Tobacco/smoking cess ation counseling (ask, advise, assess, assist, and arrange) denies 01/24/2020 Illicit/recreational drugs denies j [email or web address] 01/24/2020 Dental care dental consent provided [email or web address] 01/24/2020 Travel 01/24/2020 Seat belt use jcssm [email or web address] 01/24/2020 Indications for ultrasonography 01/24/2020 Avoidance of saunas or hot tubs 01/24/2020 Toxoplasmosis precau tions (cats/raw meat) [email or web address] Second Trimester Discussed Date Discussion Item Discussion Note Discuss ed By Third Trimester Discussed Date Discussion Item Discussion Note Discuss ed By Delivery Information Delivery Date Delivery Type Labor Anesthesia Weeks Gestation Incision Type Labor Labor Length Hrs Delivered By Post Complications Tubal Sterilization Discharge Date Comments 0 12.2 afehrenbac her Discharge Information Feeding Method Contraceptive Method Maternal HG B and HCT Levels Ob Episode Information Episode Created Date Number of Fetuses Patient Bloodtype Patient rh Status Prepregnancy Weight lbs Domestic Partner Domestic Partner Phone Father Name Jewelry Engraver Status 05/09/19 16 1 A Positive DELETED Fetus Data First Name Last Name Admitted to NICU Weight (g) Sex Living Outcome Pediatric Complications Fetus ID Race Codes Race Delivery Type 63316 Problems Problem Notes Problem Name Start Date End Date Resolution Snomed Code Not e Diabetes mellitus 07386121 Threatened miscarriage 9631324 3 Obesity 583660631 Hypercholesterolemia 48064344 Hypertensive disorder 75939410 Amenorrhea 71152277 Vitamin D deficiency 27474716 Genital herpes simplex 9903968 6 Sickle cell trait 80479457 Anemia 119786443 Cisco Calculation Initial Cisco Date Initial Exam Date Initial Exam Provider Initial Ultrasound Date Last Menstrual Period Date Ultra Sound Weeks Gestation 12/26/2015 05/09/2015 03/21/2015 0 Eighteen To Twenty Week Cisco Update Ultra Sound Date Fundal Height At Umbil Quickening Date Ultra Sound Latest Weeks Gestation Final Cisco Confirmed By Final Cisco Confirmed Date Final Cisco Date Ultra Sound Latest Days Gestation 0 12/26/19 16 0 Menstrual History Last Menstrual Date Menses Monthly On Bcp Conception Prior Menses Frequency Hcg Plus Date Menarche Onset Age 0103/21/2015 Delivery Information Delivery Date Delivery Type Labor Anesthesia Weeks Gestation Incision Type Labor Labor Length Hrs Delivered By Post Complications Tubal Sterilization Discharge Date Comments Discharge Information Feeding Method Contraceptive Method Maternal HG B and HCT Levels Ob Episode Information Episode Created Date Number of Fetuses Patient Bloodtype Patient rh Status Prepregnancy Weight lbs Domestic Partner Domestic Partner Phone Father Name Jewelry Engraver Status 12/30/19 17 1 CLOSED Fetus Data First Name Last Name Admitted to NICU Weight (g) Sex Living Outcome Pediatric Complications Fetus ID Race Codes Race Delivery Type , Spontane ous 31038 Cisco Calculation Initial Cisco Date Initial Exam Date Initial Exam Provider Initial Ultrasound Date Last Menstrual Period Date Ultra Sound Weeks Gestation 0 Eighteen To Twenty Week Cisco Update Ultra Sound Date Fundal Height At Umbil Quickening Date Ultra Sound Latest Weeks Gestation Final Cisco Confirmed By Final Cisco Confirmed Date Final Cisco Date Ultra Sound Latest Days Gestation 0 0 Menstrual History Last Menstrual Date Menses Monthly On Bcp Conception Prior Menses Frequency Hcg Plus Date Menarche Onset Age Delivery Information Delivery Date Delivery Type Labor Anesthesia Weeks Gestation Incision Type Labor Labor Length Hrs Delivered By Post Complications Tubal Sterilization Discharge Date Comments 1 14 Discharge Information Feeding Method Contraceptive Method Maternal HG B and HCT Levels
[2024-08-11 01:07] VITALS: BP 151/78; PULSE 73; RESP 13; TEMP 36.4; O2SAT 100
[2024-08-11 01:13] VITALS: BP 151/78; PULSE 76; RESP 14; O2SAT 100
--- NOTE | 2024-08-11 01:51 | ED.FEMALEGU ---
HPI - Female Genitourinary General Chief complaint: Urogenital-Female <Carrie Westbrook PA-C - Last Filed: 08/18/24 17:17> Stated complaint: vaginal discomfort <Carrie Westbrook PA-C - Last Filed: 08/18/24 17:17> Time Seen by Provider: 08/11/24 01:38 <Carrie Westbrook PA-C - Last Filed: 08/18/24 17:17> Source: patient <DOROTHEA Chawla Last Filed: 08/18/24 17:17> Mode of arrival: ambulatory <ODROTHEA Chawla Last Filed: 08/18/24 17:17> Limitations: no limitations <DOROTHEA Chawla Last Filed: 08/18/24 17:17> History of Present Illness HPI Narrative: This is a 43-year-old female that presents to the emergency department for vaginal irritation. Ongoing over the last 2 days. She tried using an hens-sxr-tqxcwql yeast medication. She applied it tonight with worsening of her symptoms which prompted her to be seen. Denies fevers, abdominal pain, vomiting, dysuria. <DOROTHEA Chawla Last Filed: 08/18/24 17:17> Related Data Home medications: Home Medications ?Medication ?Instructions ?Recorded ?Confirmed ?Last Taken ?Type vits 75-iron 28 mg-folic 1 pkg PO DAILY 08/02/19 10/26/22 08/14/19 History acid 800 mcg-omega3 440 mg oral pack (Daily ) labetalol 100 mg tablet 100 mg PO BID 10/23/22 10/26/22 Unknown History omeprazole 20 mg capsule,delayed 20 mg PO DAILY 10/23/22 10/26/22 Unknown History release progesterone micronized 100 mg 100 mg PO HS 10/23/22 10/26/22 Unknown History capsule <DOROTHEA Chawla Last Filed: 08/18/24 17:17> Allergies/Adverse reactions: Allergies Allergy/AdvReac Type Severity Reaction Status Date / Time No Known Allergies Allergy Verified 08/11/24 00:42 <DOROTHEA Chawla Last Filed: 08/18/24 17:17> Review of Systems Review of Systems: CONSTITUTIONAL: Denies fever GASTROINTESTINAL: Denies abdominal pain, nausea, vomiting GENITOURINARY: Denies dysuria or hematuria. SKIN: Denies rash <Carrie Westbrook PA-C - Last Filed: 08/18/24 17:17> All systems reviewed & are unremarkable except as noted in HPI and below <Carrie Westbrook PA-C - Last Filed: 08/18/24 17:17> [facility] Past Medical History Medical History: Medical History Anemia Diabetes HTN (hypertension) Migraines <Carrie Westbrook PA-C - Last Filed: 08/18/24 17:17> Surgical History Surgical History: Surgical History History of D&C 2000 for spontaneous Hx laparoscopic cholecystectomy Hx of gastric bypass gastric sleeve initially performed December of 2018; in 2021 she had her small intestines partially removed with the reanastomosis; revision to a Sundeep-en-Y in 2022 performed in [place] <Carrie Westbrook PA-C - Last Filed: 08/18/24 17:17> Social History Social History: Social History Smoking status: Never smoker Second hand tobacco smoke exposure: No Alcohol intake: never Drinks per week: 1 Substance use: never Substance use type: does not use Living arrangements: alone Gender identity (if verbalized by the patient): Female Sexual Orientation (if Verbalized by the Patient): Straight or Heterosexual Spiritual care concerns: No Agree to blood products: No <Carrie Westbrook PA-C - Last Filed: 08/18/24 17:17> Exam Narrative: GENERAL: Well-appearing, well-nourished, and in no acute distress. HEAD: Normocephalic, atraumatic. EYES: EOMI. CHEST: No respiratory distress. HEART: Regular rate EXTREMITIES: Normal range of motion. No edema. SKIN: Warm, dry, no rash. NEURO: No focal deficits. Alert and oriented x3. PSYCH: Normal mood and affect PELVIC: Mild redness/irritation of the vulvovaginal area with moderate amount of white discharge <Carrie Westbrook PA-C - Last Filed: 08/18/24 17:17> Course Course Emergency Course: Sign-out by previous provider pending STD panel. Patient did not want to wait for the results. Her Trichomonas, gonorrhea, chlamydia tests were negative. BV test pending, but patient again did not want to wait for result. Patient discharged. Patient received fluconazole here in the ED. <Fuad Glover MD - Last Filed: 08/11/24 06:14> Vital Signs Vital signs: Vital Signs Temperature 97.6 F 08/11/24 01:07 Pulse Rate 73 08/11/24 01:07 Respiratory Rate 13 08/11/24 01:07 Blood Pressure 151/78 H 08/11/24 01:07 Pulse Oximetry 100 08/11/24 01:07 Oxygen Delivery Room Air 08/11/24 01:07 Temperature 97.6 F 08/11/24 01:07 Pulse Rate 79 08/11/24 05:09 Respiratory Rate 17 08/11/24 05:09 Blood Pressure 141/76 H 08/11/24 05:09 Pulse Oximetry 100 08/11/24 05:09 Oxygen Delivery Room Air 08/11/24 01:07 <Carrie Westbrook PA-C - Last Filed: 08/18/24 17:17> Vital Signs Temperature 97.6 F 08/11/24 01:07 Pulse Rate 73 08/11/24 01:07 Respiratory Rate 13 08/11/24 01:07 Blood Pressure 151/78 H 08/11/24 01:07 Pulse Oximetry 100 08/11/24 01:07 Oxygen Delivery Room Air 08/11/24 01:07 Temperature 97.6 F 08/11/24 01:07 Pulse Rate 79 08/11/24 05:09 Respiratory Rate 17 08/11/24 05:09 Blood Pressure 141/76 H 08/11/24 05:09 Pulse Oximetry 100 08/11/24 05:09 Oxygen Delivery Room Air 08/11/24 01:07 <Fuad Glover MD - Last Filed: 08/11/24 06:14> MDM - Female Genitourinary MDM Narrative Medical decision making narrative: Patient presents to the emergency department for vaginal irritation. She is afebrile and nontoxic appearing. Her vitals are stable. Urine with trace leuk esterase, 0-5 white blood cells. test is negative. Pelvic exam performed in STD testing sent. Treated with oral fluconazole for candidiasis. <Carrie Westbrook PA-C - Last Filed: 08/18/24 17:17> Differential Diagnosis Differential diagnosis: Likely urinary tract infection, bacterial vaginosis, trichomoniasis, cervicitis and vaginitis <Carrie Westbrook PA-C - Last Filed: 08/18/24 17:17> Lab Data Labs: Lab Results 08/11/24 08/11/24 Range/Units 02:02 02:05 Urine Color Yellow (Yellow) Urine Appearance Clear (Clear) Urine pH 5.5 (5.0-9.0) Ur Specific [place] 1.015 (1.001-1.035) Urine Protein Negative (Negative) mg/dL Urine Glucose (UA) Negative (Negative) mg/dL Urine Ketones Negative (Negative) mg/dL Ur Blood (Man) Negative (Negative) Urine Nitrate Negative (Negative) Urine Bilirubin Negative (Negative) Urine Urobilinogen 1.0 (<2.0) mg/dL Add Ur Microanalysis Reviewed Leukocyte Esterase Rfl Trace H (Negative) BAY/UL Urine RBC 6-10 H (0-2) /hpf Urine WBC 0-5 (0-3) /hpf Ur Squamous Epith Cells None seen (Few) /hpf Urine Bacteria None seen /hpf Urine Casts 0-2 POC Urine HCG, Qual Negative (Negative) C. trachomatis (PCR) Not detected (NOT DETECTE) N. gonorrhoeae (PCR) Not detected (NOT DETECTE) T. vaginalis (PCR) Not detected (NOT DETECTE) Bact Vaginosis Panel Negative (NEGATIVE) <Carrie Westbrook PA-C - Last Filed: 08/18/24 17:17> Lab Results 08/11/24 08/11/24 Range/Units 02:02 02:05 Urine Color Yellow (Yellow) Urine Appearance Clear (Clear) Urine pH 5.5 (5.0-9.0) Ur Specific [place] 1.015 (1.001-1.035) Urine Protein Negative (Negative) mg/dL Urine Glucose (UA) Negative (Negative) mg/dL Urine Ketones Negative (Negative) mg/dL Ur Blood (Man) Negative (Negative) Urine Nitrate Negative (Negative) Urine Bilirubin Negative (Negative) Urine Urobilinogen 1.0 (<2.0) mg/dL Add Ur Microanalysis Reviewed Leukocyte Esterase Rfl Trace H (Negative) BAY/UL Urine RBC 6-10 H (0-2) /hpf Urine WBC 0-5 (0-3) /hpf Ur Squamous Epith Cells None seen (Few) /hpf Urine Bacteria None seen /hpf Urine Casts 0-2 POC Urine HCG, Qual Negative (Negative) C. trachomatis (PCR) Not detected (NOT DETECTE) N. gonorrhoeae (PCR) Not detected (NOT DETECTE) T. vaginalis (PCR) Not detected (NOT DETECTE) Bact Vaginosis Panel Negative (NEGATIVE) <Fuad Glover MD - Last Filed: 08/11/24 06:14> Critical Care Time Critical Care Time Critical Care Time: No <Carrie Westbrook PA-C - Last Filed: 08/18/24 17:17> Discharge Plan Discharge Clinical Impression: Vulvovaginal candidiasis <Carrie Westbrook PA-C - Last Filed: 08/18/24 17:17> Patient Disposition: Home <Carrie Westbrook PA-C - Last Filed: 08/18/24 17:17> Condition: Stable <Carrie Westbrook PA-C - Last Filed: 08/18/24 17:17> Instructions: Antibiotic Form, Yeast Infection (ED) <Carrie Westbrook PA-C - Last Filed: 08/18/24 17:17> Additional Instructions: Return to the ER if you experience fever, abdominal pain with nausea and vomiting, you are unable to keep down liquids or solids, pain or burning with urination, blood in the urine or any other symptoms that are concerning to you You were treated today for a yeast infection Follow up with your swimming pool service technician <Carrie Westbrook PA-C - Last Filed: 08/18/24 17:17> Patient Language: Tajik <Carrie Westbrook PA-C - Last Filed: 08/18/24 17:17> Prescriptions: No Action albuterol sulfate 90 mcg/actuation HFA aerosol inhaler 2 inhalation INHALATION Q4-6H PRN (Reason: shortness of breath or wheezing) Qty: 8.5 3RF cyanocobalamin (vitamin B-12) 1,000 mcg tablet 1,000 mcg PO DAILY Qty: 30 0RF labetalol 100 mg tablet 100 mg PO BID omeprazole 20 mg capsule,delayed release(DR/EC) 20 mg PO DAILY progesterone micronized 100 mg capsule 100 mg PO HS montelukast [Singulair] 10 mg tablet 10 mg PO HS Qty: 30 0RF cephalexin 500 mg capsule 500 mg PO Q12H Qty: 14 0RF Daily 28-800-440 mg-mcg-mg Combo Pack 1 pkg PO DAILY <Carrie Westbrook PA-C - Last Filed: 08/18/24 17:17> Follow-up/Referrals: UNKNOWN,DOCTOR [Primary Care Provider] - <Carrie Westbrook PA-C - Last Filed: 08/18/24 17:17> Time of Disposition: 05:04 <Carrie Westbrook PA-C - Last Filed: 08/18/24 17:17> 05:04 <Fuad Glover MD - Last Filed: 08/11/24 06:14>
[2024-08-11] MEDS: FLUCONAZOLE 150 MG TABLET PO (02:00)
[2024-08-11 02:07] LABS: BEDSIDEPREGUCG Negative (Negative)
[2024-08-11 02:39] LABS: Add Urine Microscopic? YES; Appearance Urine Clear (Clear); Bacteria Urine None Seen /hpf; Bilirubin Urine Negative (Negative); Blood Urine Negative (Negative); Color Urine Yellow (Yellow); Glucose Urine UA Negative (Negative); Ketones Urine Negative (Negative); Leukocyte Esterase Ur Trace LEU/UL (Negative); Need Manual Microscopic Reviewed; Nitrate Urine Negative (Negative); Non Pathogenic Casts 0-2; Protein Urine Negative (Negative); Specific Grav Ur 1.015 (1.001-1.035); Squamous Epithelial Cell Urine None Seen /hpf (Few); WBC Urine 0-5 /hpf (0-3); pH Urine 5.5 (5.0-9.0)
--- OUTSIDE RECORDS SUMMARY | 2024-08-11 02:45 | XMS_ITS | Clinical Summary ---
Author Organization [facility] Angie Valiente Address [address] [place] [address] Care Team Providers Care Lineman Service Or Work Dispatcher Name Role Phone Provider, Abstract Primary Care [...] Device Data STL ABSTRACTION Provider, Abstract 05/16/2024 [facility] TANK WORKER [facility] [address] [place] [address] Jimbo Castillo MD Needs Appointment 05/16/2024 [facility] TANK WORKER [facility] [address] [place] [address] Jimbo Castillo MD Needs Appointment 05/16/2024 [facility] Women's Health Clinical Support [address] [place] [address] Latosha Aleman RN Needs Appointment 05/13/2024 External Device [...] on file Legal Sex Female 2:18 PM INFORMATICS COORDINATOR Gender Identity Not on file Sexual Orientation Not on file Last Filed Vital Signs Vital Sign Reading Time Taken Comments Blood Pressure 134/82 01/13/2024 12:03 PM INFORMATICS COORDINATOR Pulse 86 08/02/2020 10:04 AM CDT Temperature 36.6 C (97.8 F) 08/02/2020 10:04 AM CDT Respiratory Rate 18 06/29/2019 2:36 PM CDT Oxygen Saturation 97% 08/02/2020 10:04 AM CDT Inhaled Oxygen Concentration - - Weight 104.3 kg (230 lb) 01/24/2024 11:44 AM INFORMATICS COORDINATOR Height 165.1 cm (5' 5) 08/02/2020 10:04 [...] this topic Insurance LOCAL PLUS Care Teams Lineman Service Or Work Dispatcher Relationship Specialty Start Date End Date Provider, Abstract NO ADDRESS ON FILE PCP - General 05/17/19
--- OUTSIDE RECORDS SUMMARY | 2024-08-11 02:45 | XMS_ITS | CONTINUITY OF CARE DOCUMENT ---
Author Name mack giron Address Unknown Organization [facility] Address [address] [place] [address] Phone [phone] Care Team Providers Care Ferry Captain Name Role Phone Hamzah GABRIEL, Eliceo Unavailable [phone] CHELSEA HERRON MD Unavailable CHELSEA HERRON MD Unavailable INSURANCE PROVIDERS Payer name Policy type / Coverage type Miranda red republican ID [facility] [id number] Other [id number]
--- OUTSIDE RECORDS SUMMARY | 2024-08-11 02:45 | XMS_ITS | Clinical Summary ---
Author Organization [facility] Address [address] [place] [address] Care Team Providers Care Art Preparator Name Role Phone Elias Hewitt DO Primary Care Provider [phone] Source Comments [facility],non-owned Affiliates and Associated Physician Practices is amultiple site organization consisting of ambulatory clinics and hospital sitesin [place], [place], [place] and [place]. This disclosure is being madepursuant to the Care Everywhere program and may not contain all information available regarding this patient. Last updated 17.[facility] Allergies No known active allergies Medications * [...] (02/05/2020): 12/2018 Redo of Lap sleeve gastrectomy, [place] Abnormal antibody titer 02/05/2020 Overview (02/05/2020): Labs [...] Recorded Patient Health Questionnaire-2 Score 0 03/23/2024 [facility] [place] of Occupat ional Health - Occupational Stress [...] place to sleep or slept in a alf (including now)? No 12/03/2022 Comments No Sex and Gender Information Value Date Recorded Sex Assigned at Not on file Legal Sex Female 6:22 AM OUTBOUND SALES PROFESSIONAL Gender Identity Not on file Sexual Orientation [...] URINE RANDOM PANEL Routine 05/03/2013 1:21 PM OUTBOUND SALES PROFESSIONAL Diabetes mellitus type II, controlled, with no complications from Last 3 Months or Most Recently Relevant to Health Maintenance Results * (ABNORMAL) COMPREHENSIVE METABOLIC PANEL (12/19/2022 2:15 PM CDT) [facility] Glucose 94 70 - 105 mg/dL [...] mL/min/1.7 3 m2 12/19/2022 2:51 PM CDT [facility] Blood BLOOD SPECIMEN / Unknown Venipuncture / Unknown 12/19/2022 2:15 PM CDT 12/19/2022 2:27 PM CDT Surjit Acosta MD LAB - CHEMISTRY ORDERABLES Fin al Result [facility] [address] [place] [address] * HEMOGLOBIN A1C (11/17/2022 7:38 AM CDT) Hemoglobin A1c 5.2 <5.7 % 11/17/2022 8:14 AM CDT [facility] Estimated Average Glucose 103 mg/dL 11/17/2022 8:14 AM CDT [facility] Blood BLOOD SPECIMEN / Unknown Venipuncture / Unknown 11/17/2022 7:38 AM CDT 11/17/2022 8:02 AM CDT Narrative [facility] - 11/17/2022 8:14 AM CDT HbA1c [...] exceeds 5% in the specimen. The [employer] Rec[employer]iter assay for the measurement of HbA1c is a National Glycohemoglobin Standardization Program (NGSP) certified method. Ld Thomson MD LAB - CHEMISTRY ORDERABLES Fi nal Result [facility] [address] [place] [address] * MICROALB/CREAT RATIO URINE RANDOM PANEL (05/03/2013 1:21 PM OUTBOUND SALES PROFESSIONAL) Creatinine 24 Hour Urine 124.8 16.0 - 327.0 mg/dL [facility] ACCOUNT BILL Microalbumin Urine 1.9 0.0 - 17.0 ug/mL [facility] ACCOUNT BILL Microalbumin/Crea tinine Ratio 1.5 0.0 - 30.0 mg/g creat [facility] ACCOUNT BILL Urine specimen (specimen) URINE / Unknown 05/03/2013 1:21 PM OUTBOUND SALES PROFESSIONAL 05/03/2013 10:32 PM OUTBOUND SALES PROFESSIONAL Narrative Resulting Agency Comment [facility] [address] [place] [id number] us Re Goldberg MD LAB - URINE CHEMISTRY FRANCISCO JAVIERE ED Final Result [facility] ACCOUNT BILL [address] [place] [address] from Last 3 Months or Most Recently Relevant to Health Maintenance Additional Health Concerns Infection Onset Date 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 04/03/2022 Insurance [facility] [address] [address] [facility] [place] [address] ANTHEM Advance Directives * Full Code (Latest Code Status on File) Date Activated Date Inactivated Comments 12/02/2022 6:13 PM 12/05/2022 7:58 PM * FULL RESUSCITATION Date Activated Date Inactivated Comments 04/20/2012 3:53 PM 04/23/2012 4:15 PM * Full Code Date Activated Date Inactivated Comments 02/07/2009 8:34 PM 02/12/2009 5:23 AM Care Teams Art Preparator Relationship Specialty Start Date End Date Elias Hewitt DO [address] [place] [phone] PCP - General 04/14/24
--- OUTSIDE RECORDS SUMMARY | 2024-08-11 02:45 | XMS_ITS | Encounter Summary ---
Author Organization [facility] Address [address] [place] [address] Care Team Providers Care Solid State Tester Name Role Phone Re Goldberg MD Primary Care Provider [phone] Latosha Erwin PAMirzaC Primary Care Provide r Elias Hewitt DO Primary Care Provider [phone] Encounter Details Date Type Department Care Team [...] on file Legal Sex Female 6:22 AM PAINT STOCKMAN Gender Identity Not on file Sexual Orientation [...] documented as of this encounter Care Teams Solid State Tester Relationship Specialty Start Date End Date Re Goldberg MD PCP - General Family Medicine 03/29/13 03/23/22 Latosha Erwin PA-C [address] [place] [phone] PCP - General 03/24/22 11/14/23 Elias Hewitt DO [address] [place] [phone] PCP - General 04/14/24 documented as of this encounter
--- OUTSIDE RECORDS SUMMARY | 2024-08-11 02:45 | XMS_ITS | Clinical Summary ---
Author Organization [facility] Care Team Providers Care Computer Animator Name Role Phone Unavailable Primary Care Provider Unavailabl e Social History Tobacco Use Types Packs/Day Years Used Date Smoking Tobacco: Never Assessed Comments Unknown Sex and Gender Information Value Date Recorded Sex Assigned at Not on file Legal Sex Female 10:43 AM BRIM STRETCHER Gender Identity Not on file Sexual Orientation [...]
--- OUTSIDE RECORDS SUMMARY | 2024-08-11 02:46 | XMS_ITS | Referral Summary ---
Author Organization [facility] Address [address] [place] [id number] Care Team Providers Care Psychiatry Instructor Name Role Phone Unknown, Notinfile Primary Care Provider Unavail able Encounters Date Type Department Care Team Description 06/09/2024 5:30 PM CDT Office Visit [facility] Medical [facility] at [address] [place] [phone] Raysa Kilpatrick NP Acute cough (Primary Dx); Shortness of breath; Upper respiratory symptom; Preventative health care 05/25/2024 Results Follow-Up [facility] [address] [place] [address] Room 34[address] (Third Floor) [place] [address] Latosha Stanley RN Influenza A/B, RSV, and COVID-19 PCR Nasopharyngeal 05/24/2024 9:52 PM CDT - 05/25/2024 12:39 AM CDT Emergency [facility] [address] [place] [address] Juan Francisco Reed MD Shortness of breath (Primary Dx); Subacute cough Discharge Disposition: Discharge to home or self care 05/24/2024 3:34 PM CDT - 05/24/2024 11:59 PM CDT Hospital Encounter [facility] [address] [place] [id number] Discharge Disposition: Discharge to home or self care 05/24/2024 10:15 AM CDT Office Visit [facility] [place] [address] [facility] [place] [address] [place] [phone] Cough, unspecified type 05/24/2024 Telephone [facility] [address] [facility] Room [address]20 (Third Floor) [place] [address] Nahomi Grullon RN [place] Employee Screening from [...] BY MOUTH DIRECTED. 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 Gender Identity Female 07/07/2019 1:43 PM CDT [...] [facility] Eligible (05/24/2024 10:35 PM CDT) [facility] Rapid HIV, POC Negative Negative Lot Number [id number] QC Control Line Acceptable Blood 05/24/2024 10:3 5 PM CDT Vivi Ratliff MD POINT OF CARE TEST ORDERABL ES Final Result * (ABNORMAL) POCT hCG, urine (05/24/2024 10:34 PM CDT) [facility] HCG, ur, POC Negative(.) Negative Lot Number [id number] QC Backgroud Clear Acceptable QC Control Line Acceptable Urine 05/24/2024 10:3 4 PM CDT Vivi Ratliff MD POINT OF CARE TEST ORDERABL ES Final Result * Troponin I high-sensitivity 2-hour (05/24/2024 10:03 PM CDT) [facility] Trop I hs 12 <=17 ng/L Comment: Interpretive Data For further hscTnI resources including the diagnostic algorithm and an aid in interpretation, copy and paste this link: https://bjhlab.testcatalog.org/show/[email or web address] Current Interpretive Data last revised 2019. Trop I hs delta 2 ng/L [facility] Trop I hs interp Insignificant [facility] Blood 05/24/2024 10:0 3 PM CDT 05/24/2024 10:14 PM CDT Vivi Ratliff MD LAB BLOOD ORDERABLES Final Result Performing Organization Address [facility] de Phone Number [facility] [place] [address] * N. gonorrhoeae/C. trachomatis Amplification Urine (05/24/2024 9:54 PM CDT) Pathologist [facility] C. trachomatis Not Detected Not Detected [facility] N. gonorrhoeae Not Detected Not Detected [facility] Comment: Interpretive Data This assay detects Chlamydia trachomatis and Neisseria gonorrhoeae by nucleic acid amplification testing (NAAT). This assay has been cleared by the [place] Food and Drug administration. The performance characteristics of this test have been verified by the [facility] laboratory. The performance characteristics of this test have not been evaluated in individuals less than 14 years of age. Current Interpretive Data last revised 2023. Urine (None) 05/24/2024 9:54 PM CDT 05/24/2024 10:10 PM CDT Vivi Ratliff MD LAB MICROBIOLOGY - GENERAL ORDERABLES Final Result Performing Organization Address [facility] Co de Phone Number [facility] [place] [address] [facility] * Trichomonas vaginalis PCR Urine (05/24/2024 9:54 PM CDT) Pathologist [facility] Trichomonas DNA Not Detected Not Detected [facility] Urine 05/24/2024 9:54 PM CDT 05/24/2024 10:10 PM CDT Narrative [facility] - 05/24/2024 11:45 PM CDT Interpretive Data: This assay detects Trichomonas vaginalis by nucleic acid amplification testing (NAAT). This assay has been cleared by the [place] Food and Drug administration. The performance characteristics of this test have been verified by the [facility] laboratory. Excess blood in specimens may be inhibitory and result in false negative results. The performance of this test has not been evaluated in women or individuals less than 18 years of age. Vivi Ratliff MD LAB MICROBIOLOGY - GENERAL ORDERABLES Final Result Performing Organization Address [facility] Co de Phone Number [facility] [place] [address] [facility] * Troponin I high-sensitivity series (baseline, 2hr, [...] BLOOD ORDERABLES Final Result Performing Organization Address [facility] de Phone Number [facility] [place] [address] * eGFR (05/24/2024 8:21 PM CDT) eGFR [...] Ratliff MD LAB BLOOD ORDERABLES Final Result [facility] [place] [address] * Differential, auto (05/24/2024 8:21 PM CDT) Neutrophil abs 3.3 1.5 - 6.5 K/cumm Imm gran abs 0.0 0.0 - 0.1 K/cumm [facility] Lymphocyte abs 1.5 0.8 - 3.3 K/cumm [facility] Monocyte abs 0.8 0.2 - 0.8 K/cumm [facility] Eosinophil abs 0.3 0.0 - 0.5 K/cumm [facility] Basophil abs 0.0 0.0 - 0.1 K/cumm [facility] Neutrophil pct 55.1 % [facility] Comment: Interpretive Data Percent cell count reference ranges are not reported, since discordance with absolute values may lead to misinterpretation of CBC data. Current Interpretive Data was last revised on 2017. Imm gran pct 0.2 % [facility] Comment: Interpretive Data Percent cell count reference ranges are not reported, since discordance with absolute values may lead to misinterpretation of CBC data. Current Interpretive Data was last revised on 2017. Lymphocyte pct 25.6 % [facility] Comment: Interpretive Data Percent cell count reference ranges are not reported, since discordance with absolute values may lead to misinterpretation of CBC data. Current Interpretive Data was last revised on 2017. Monocyte pct 13.2 % [facility] Comment: Interpretive Data Percent cell count reference ranges are not reported, since discordance with absolute values may lead to misinterpretation of CBC data. Current Interpretive Data was last revised on 2017. Eosinophil pct 5.2 % [facility] Comment: Interpretive Data Percent cell count reference ranges are not reported, since discordance with absolute values may lead to misinterpretation of CBC data. Current Interpretive Data was last revised on 2017. Basophil pct 0.7 % [facility] Comment: Interpretive Data Percent cell count reference ranges are not reported, since discordance with absolute values may lead to misinterpretation of CBC data. Current Interpretive Data was last revised on 2017. Blood 05/24/2024 8:21 PM CDT 05/24/2024 8:34 PM CDT Vivi Ratliff MD LAB BLOOD ORDERABLES Final Result [facility] Department [place] [address] * (ABNORMAL) CBC with auto differential (05/24/2024 8:21 PM CDT) WBC 5.9 3.8 - 9.9 K/cumm Hgb 7.8(L) 11.9 - 15.5 g/dL [facility] Hct 27.3(L) 35.6 - 45.5 % [facility] Plt 451(H) 150 - 400 K/cumm [facility] MPV 10.5 9.1 - 12.3 fL [facility] RBC 4.23 3.90 - 5.20 M/cumm [facility] MCV 64.5(L) 81.3 - 96.4 fL [facility] MCH 18.4(L) 27.1 - 33.3 pg [facility] MCHC 28.6(L) 32.3 - 35.7 g/dL [facility] RDW CV 18.9(H) 11.1 - 14.9 % [facility] RDW SD 43.2 35.7 - 48.1 fL [facility] NRBC abs 0.00 0.00 - 0.01 K/cumm [facility] Blood 05/24/2024 8:21 PM CDT 05/24/2024 8:34 PM CDT Vivi Ratliff MD LAB BLOOD ORDERABLES Final Result [facility] Department [place] [address] * (ABNORMAL) Comprehensive metabolic panel (05/24/2024 8:21 PM CDT) Sodium 137 135 - 145 mmol/L Potassium, pl 5.0(H) 3.3 - 4.9 mmol/L [facility] Chloride 103 97 - 110 mmol/L [facility] CO2 25 22 - 32 mmol/L [facility] Anion gap 9 2 - 15 mmol/L [facility] BUN 10 6 - 25 mg/dL [facility] Creatinine 1.11(H) 0.60 - 1.10 mg/dL [facility] Glucose 102 70 - 199 mg/dL [facility] Comment: Interpretive Data Fasting glucose >/= [...] 2022. Calcium 8.9 8.5 - 10.3 mg/dL [facility] Bilirubin, total 0.3 0.1 - 1.2 mg/dL [facility] Protein, pl 8.5 6.5 - 8.5 g/dL [facility] Albumin 4.1 3.5 - 5.0 g/dL [facility] Alk phos 124 40 - 130 Units/L [facility] ALT 25 7 - 45 Units/L [facility] AST 41 10 - 45 Units/L [facility] Blood 05/24/2024 8:21 PM CDT 05/24/2024 8:34 PM CDT us Vivi Ratliff MD LAB BLOOD ORDERABLES Final Result [facility] Department [place] [address] * XR Chest PA Lateral 2 Views [...] 12-LEAD (05/24/2024 7:03 PM CDT) Narrative [facility] - 05/24/2024 7:03 PM CDT Tae Cotton Jr., MD 05/24/2024 7:06 PM ECG 12 lead Date/Time: 05/24/2024 7:03 PM Performed by: Tae Cotton Jr., MD Authorized by: Nuria Powell MD Comments: EKG Interpretation Interpreted by ED physician in absence of a healthcare corporate account director Ventricular rate: 102 bpm Rhythm: sinus tachycardia [place]: Normal Intervals: normal Other findings: no acute [...] by ED physician in absence of a healthcare corporate account director Ventricular rate: 102 bpm Rhythm: sinus tachycardia [place]: Normal Intervals: normal Other findings: no acute ischemia, no ST segment elevation,TWI in III Interpretation: sinus tachycardia Compared to priors: yes, similar to 10/23/22 but with sinus tachycardia Tae Cotton Jr., MD 05/24/24 1906 Juan Francisco Reed MD ECG ORDERABLES Darlene hernandez Result [facility] * Influenza A/B, RSV, and COVID-19 PCR Nasopharyngeal (05/24/2024 5:02 PM CDT) COVID-19 RNA Negative Negative Influenza A RNA Negative Negative [facility] Influenza B RNA Negative Negative [facility] RSV RNA Negative Negative [facility] Comment: Interpretive data: Testing performed by [facility]. This test is performed using the [employer] Xpert Xpress CoV-2/Flu/RSV plus assay. This is a multiplex, real-time reverse transcriptase PCR assay intended for the qualitative detection of nucleic acid from SARS-CoV-2, influenza A, influenza B, and respiratory syncytial virus. This assay has been cleared by the [place] Food and Drug administration. The performance characteristics have been verified by the [facility]. Results must be considered in the clinical context, and a negative result does not rule out infection. Interpretive Data last revised 2023 Nasopharyngeal 05/24/2024 5: 02 PM CDT 05/24/2024 5:03 PM CDT Narrative [facility] - 05/24/2024 5:55 PM CDT Bill to [facility] [address] Patient is employed by/enrolled at:->[facility] Is the patient experiencing any symptoms consistent with COVID (eg. Fever, cough, shortness of breath)?->Yes Reason for testing?->Symptomatic Is the Patient experiencing symptoms consistent with COVID?->Yes Walter Steven MD LAB MICROBIOLOGY - GENERAL OR DERABLES Final Result [facility] [address] [place] [address] from Last 3 Months Insurance [facility] [place] [address] [employer] Address: [facility] [id number] [place] [address] [place] [address] OPEN ACCESS [facility] [employer] Address: [facility] [id number] [place] [address] Advance Directives For more information, please contact: [phone] * Full Code (Latest Code Status on File) Date Activated Date Inactivated Comments 07/25/2020 9:12 PM 07/28/2020 10:07 PM Care Teams Psychiatry Instructor Relationship Specialty Start Date End Date Unknown, Notinfile PCP - General 05/24/24
--- OUTSIDE RECORDS SUMMARY | 2024-08-11 02:46 | XMS_ITS | Clinical Summary ---
Author Organization [facility] Address [address] [place] [id number] Care Team Providers Care Industrial Relations Manager Name Role Phone Unknown, Notinfile Primary Care [...] Description 06/09/2024 5:30 PM CDT Office Visit [facility] at [address] [place] [address] [place] [address] Raysa Kilpatrick, CHAPO Acute cough (Primary Dx); Shortness of breath; Upper respiratory symptom; Preventative health care 05/25/2024 Results [facility] [address] [facility] Room [address] (Third Floor) [place] [address] Latosha Stanley RN Influenza A/B, RSV, and COVID-19 PCR Nasopharyngeal 05/24/2024 9:52 PM CDT - 05/25/2024 12:39 AM CDT Emergency [facility] Emergency Department [address] [place] [address] Juan Francisco Reed MD Shortness of breath (Primary Dx); Subacute cough Discharge Disposition: Discharge to home or self care 05/24/2024 3:34 PM CDT - 05/24/2024 11:59 PM CDT Hospital Encounter [facility] [address] [place] [id number] Discharge Disposition: Discharge to home or self care 05/24/2024 10:15 AM CDT Office Visit [facility] at [address] [place] [address] [place] [address] Cough, unspecified type 05/24/2024 [facility]phone [facility] [address] [place] [address] 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 Gender Identity Female 07/07/2019 1:43 PM CDT [...] Community Scre[facility] Eligible (05/24/2024 10:35 PM CDT) [facility] Rapid HIV, POC Negative Negative Lot Number [id number] QC Control Line Acceptable Blood 05/24/2024 10:3 5 PM CDT Vivi Ratliff MD POINT OF CARE TEST ORDERABL ES Final Result * (ABNORMAL) POCT hCG, urine (05/24/2024 10:34 PM CDT) [facility] HCG, ur, POC Negative(.) Negative Lot Number [id number] QC Backgroud Clear Acceptable QC Control Line Acceptable Urine 05/24/2024 10:3 4 PM CDT Vivi Ratliff MD POINT OF CARE TEST ORDERABL ES Final Result * Troponin I high-sensitivity 2-hour (05/24/2024 10:03 PM CDT) [facility] Trop I hs 12 <=17 ng/L Comment: Interpretive Data For further hscTnI resources including the diagnostic algorithm and an aid in interpretation, copy and paste this link: https://bjhlab.testcatalog.org/show/[email or web address] Current Interpretive Data last revised 2019. Trop I hs delta 2 ng/L [facility] Trop I hs interp Insignificant [facility] Blood 05/24/2024 10:0 3 PM CDT 05/24/2024 10:14 PM CDT Vivi Ratliff MD LAB BLOOD ORDERABLES Final Result [facility] Department [place] [address] * N. gonorrhoeae/C. trachomatis Amplification Urine (05/24/2024 9:54 PM CDT) [facility] C. trachomatis Not Detected Not Detected [facility] N. gonorrhoeae Not Detected Not Detected [facility] Comment: Interpretive Data This assay detects Chlamydia trachomatis and Neisseria gonorrhoeae by nucleic acid amplification testing (NAAT). This assay has been cleared by the [place] Food and Drug administration. The performance characteristics of this test have been verified by the [facility] Molecular Infectious Disease laboratory. The performance characteristics of this test have not been evaluated in individuals less than 14 years of age. Current Interpretive Data last revised 2023. Urine (None) 05/24/2024 9:54 PM CDT 05/24/2024 10:10 PM CDT Vivi Ratliff MD LAB MICROBIOLOGY - GENERAL ORDERABLES Final Result Performing Organization Address [facility] de Phone Number [facility] [place] [address] [facility] * Trichomonas vaginalis PCR Urine (05/24/2024 9:54 PM CDT) Pathologist [facility] Trichomonas DNA Not Detected Not Detected [facility] Urine 05/24/2024 9:54 PM CDT 05/24/2024 10:10 PM CDT N[facility]ative [facility] 05[facility] 11:45 PM CDT Interpretive Data: This assay detects Trichomonas vaginalis by nucleic acid amplification testing (NAAT). This assay has been cleared by the [place] Food and Drug administration. The performance characteristics of this test have been verified by the [facility] Molecular Infectious Disease laboratory. Excess blood in specimens may be inhibitory and result in false negative results. The performance of this test has not been evaluated in women or individuals less than 18 years of age. Vivi Ratliff MD LAB MICROBIOLOGY - GENERAL ORDERABLES Final Result Performing Organization Address [facility] de Phone Number [facility] [place] [address] [facility] * Troponin I high-sensitivity series (baseline, 2hr, [...] BLOOD ORDERABLES Final Result Performing Organization Address City/[facility]/ZIP Co de Phone Number [facility] [place] [address] * eGFR (05/24/2024 8:21 PM CDT) eGFR [...] MD LAB BLOOD ORDERABLES Final Result [facility] [place] [address] * Differential, auto (05/24/2024 8:21 PM CDT) Neutrophil abs 3.3 1.5 - 6.5 K/cumm Imm gran abs 0.0 0.0 - 0.1 K/cumm [facility] Lymphocyte abs 1.5 0.8 - 3.3 K/cumm [facility] Monocyte abs 0.8 0.2 - 0.8 K/cumm [facility] Eosinophil abs 0.3 0.0 - 0.5 K/cumm [facility] Basophil abs 0.0 0.0 - 0.1 K/cumm [facility] Neutrophil pct 55.1 % [facility] Comment: Interpretive Data Percent cell count reference ranges are not reported, since discordance with absolute values may lead to misinterpretation of CBC data. Current Interpretive Data was last revised on 2017. Imm gran pct 0.2 % [facility] Comment: Interpretive Data Percent cell count reference ranges are not reported, since discordance with absolute values may lead to misinterpretation of CBC data. Current Interpretive Data was last revised on 2017. Lymphocyte pct 25.6 % [facility] Comment: Interpretive Data Percent cell count reference ranges are not reported, since discordance with absolute values may lead to misinterpretation of CBC data. Current Interpretive Data was last revised on 2017. Monocyte pct 13.2 % [facility] Comment: Interpretive Data Percent cell count reference ranges are not reported, since discordance with absolute values may lead to misinterpretation of CBC data. Current Interpretive Data was last revised on 2017. Eosinophil pct 5.2 % [facility] Comment: Interpretive Data Percent cell count reference ranges are not reported, since discordance with absolute values may lead to misinterpretation of CBC data. Current Interpretive Data was last revised on 2017. Basophil pct 0.7 % [facility] Comment: Interpretive Data Percent cell count reference ranges are not reported, since discordance with absolute values may lead to misinterpretation of CBC data. Current Interpretive Data was last revised on 2017. Blood 05/24/2024 8:21 PM CDT 05/24/2024 8:34 PM CDT Vivi Ratliff MD LAB BLOOD ORDERABLES Final Result Performing Organization Address [facility]/ZIP Co de Phone Number [facility] [place] [address] * (ABNORMAL) CBC with auto differential (05/24/2024 8:21 PM CDT) Pathologist [facility] WBC 5.9 3.8 - 9.9 K/cumm Hgb 7.8(L) 11.9 - 15.5 g/dL [facility] Hct 27.3(L) 35.6 - 45.5 % [facility] Plt 451(H) 150 - 400 K/cumm [facility] MPV 10.5 9.1 - 12.3 fL [facility] RBC 4.23 3.90 - 5.20 M/cumm [facility] MCV 64.5(L) 81.3 - 96.4 fL [facility] MCH 18.4(L) 27.1 - 33.3 pg [facility] MCHC 28.6(L) 32.3 - 35.7 g/dL [facility] RDW CV 18.9(H) 11.1 - 14.9 % [facility] RDW SD 43.2 35.7 - 48.1 fL [facility] NRBC abs 0.00 0.00 - 0.01 K/cumm [facility] Blood 05/24/2024 8:21 PM CDT 05/24/2024 8:34 PM CDT Vivi Ratliff MD LAB BLOOD ORDERABLES Final Result [facility] Department [place] [address] * (ABNORMAL) Comprehensive metabolic panel (05/24/2024 8:21 PM CDT) Pathologist [facility] Sodium 137 135 - 145 mmol/L Potassium, pl 5.0(H) 3.3 - 4.9 mmol/L [facility] Chloride 103 97 - 110 mmol/L [facility] CO2 25 22 - 32 mmol/L [facility] Anion gap 9 2 - 15 mmol/L [facility] BUN 10 6 - 25 mg/dL [facility] Creatinine 1.11(H) 0.60 - 1.10 mg/dL [facility] Glucose 102 70 - 199 mg/dL [facility] Comment: Interpretive Data Fasting glucose >/= [...] 2022. Calcium 8.9 8.5 - 10.3 mg/dL [facility] Bilirubin, total 0.3 0.1 - 1.2 mg/dL [facility] Protein, pl 8.5 6.5 - 8.5 g/dL [facility] Albumin 4.1 3.5 - 5.0 g/dL [facility] Alk phos 124 40 - 130 Units/L [facility] ALT 25 7 - 45 Units/L [facility] AST 41 10 - 45 Units/L [facility] Blood 05/24/2024 8:21 PM CDT 05/24/2024 8:34 PM CDT Vivi Ratliff MD LAB BLOOD ORDERABLES Final Result [facility] One [facility] [place] [address] * XR Chest PA Lateral 2 Views [...] The cardiomediastinal silhouette is normal. Dictated by: Chanlder Correa MD The radiology attending physician has [...] by ED physician in absence of a mold shifter Ventricular rate: 102 bpm Rhythm: sinus tachycardia [place]: Normal Intervals: normal Other findings: no acute [...] by ED physician in absence of a mold shifter Ventricular rate: 102 bpm Rhythm: sinus tachycardia [place]: Normal Intervals: normal Other findings: no acute ischemia, no ST segment elevation,TWI in III Interpretation: sinus tachycardia Compared to priors: yes, similar to 10/23/22 but with sinus tachycardia Tae Cotton Jr., MD 05/24/24 2719 us Juan Francisco Reed MD ECG ORDERABLES Darlene hernandez Result [facility] * Influenza A/B, RSV, and COVID-19 PCR Nasopharyngeal (05/24/2024 5:02 PM CDT) Pathologist [facility] COVID-19 RNA Negative Negative Influenza A RNA Negative Negative [facility] Influenza B RNA Negative Negative [facility] RSV RNA Negative Negative [facility] Comment: Interpretive data: Testing performed by [facility]. This test is performed using the [employer] Xpert Xpress CoV-2/Flu/RSV plus assay. This is a multiplex, real-time reverse transcriptase PCR assay intended for the qualitative detection of nucleic acid from SARS-CoV-2, influenza A, influenza B, and respiratory syncytial virus. This assay has been cleared by the [place] Food and Drug administration. The performance characteristics have been verified by the [facility]. Results must be considered in the clinical context, and a negative result does not rule out infection. Interpretive Data last revised 2023 Nasopharyngeal 05/24/2024 5: 02 PM CDT 05/24/2024 5:03 PM CDT Narrative [facility] - 05/24/2024 5:55 PM CDT Bill to [facility] [employer] - 4477 Patient is employed by/enrolled at:->[facility] Is the patient experiencing any symptoms consistent with COVID (eg. Fever, cough, shortness of breath)?->Yes Reason for testing?->Symptomatic Is the Patient experiencing symptoms consistent with COVID?->Yes Walter Steven MD LAB MICROBIOLOGY - GENERAL OR DERABLES Final Result [facility] Jessica5 JustoAnthony Isabel Minaya Department [place] [address] from Last 3 Months Insurance [facility] [employer] Address: [address] [place] [address] [facility]/PPO Address[facility] [id number] [place] [address] [facility] [employer] Address: [address] [place] [address] Advance Directives For more information, please contact: [phone] * Full Code (Latest Code Status on File) Date Activated Date Inactivated Comments 07/25/2020 9:12 PM 07/28/2020 10:07 PM Care Teams Industrial Relations Manager Relationship Specialty Start Date End Date Unknown, Notinfile PCP - General 05/24/24
[2024-08-11 03:19] LABS: Trichomonas Vag PCR NOT DETECTED (NOT DETECTE)
[2024-08-11 03:41] VITALS: BP 143/74; PULSE 83; RESP 15; O2SAT 99
[2024-08-11 03:43] LABS: Chlamydia trachomatis NOT DETECTED (NOT DETECTE); Neisseria gonorrhoeae PCR NOT DETECTED (NOT DETECTE)
[2024-08-11 05:09] VITALS: BP 141/76; PULSE 79; RESP 17; O2SAT 100
[2024-08-12 12:39] LABS: Bacterial Vaginosis NEGATIVE (NEGATIVE)
== END 2024-08-11 05:12 | disposition home or self-care (01) ==
LOC: ANHED 02:43
PROVIDERS: Emergency Provider Physician Assistant
DX: B37.31 Acute candidiasis of vulva and vagina (principal); E11.9 Type 2 diabetes mellitus without complications; I10 Essential (primary) hypertension; Z86.2 Personal history of diseases of the blood and blood-forming organs and certain disorders involving the immune mechanism; Z90.49 Acquired absence of other specified parts of digestive tract; Z98.84 Bariatric surgery status; Z79.1 Long term (current) use of non-steroidal anti-inflammatories (NSAID); Z79.899 Other long term (current) drug therapy
CPT/HCPCS: 81001; 81025; 81513; 87070; 87491; 87591; 87661; 99284; A9270